=== PATIENT | female | born 1930 | race Hispanic/Latino ===

== ENCOUNTER 2016-11-25 14:22 | Observation (INO) | payer MEDICARE ==
--- NOTE | 2016-11-25 15:03 | ED PDOC ---
HPI: General Adult Time Seen by Provider: 11/25/16 14:48 Chief Complaint (Nursing): Abnormal Labs Chief Complaint (Provider): Abnormal Labs History Per: Patient History/Exam Limitations: no limitations Onset/Duration Of Symptoms: Worse Since Current Symptoms Are (Timing): Still Present Severity: None Additional Complaint(s): Patient is a 86 year old female referred to ED by PMD for hemoglobin 8.2 which is significantly differently from hemoglobin 1 year ago. Patient reports that she has had a cough with blood tinged sputum, but denies chest pain, fever, bloody or dark stools. Denies dizziness, weakness or SOB. Past Medical History Reviewed: Historical Data, Nursing Documentation, Vital Signs Vital Signs: Last Vital Signs Temp 97.8 F 11/25/16 14:28 Pulse 96 H 11/25/16 14:28 Resp 17 11/25/16 14:28 BP 134/60 11/25/16 14:28 Pulse Ox 99 11/25/16 17:11 - Medical History PMH: No Chronic Diseases - Surgical History Surgical History: No Surg Hx - Family History Family History: States: No Known Family Hx - Living Arrangements Living Arrangements: With Family - Immunization History Hx Tetanus Toxoid Vaccination: Yes Hx Influenza Vaccination: Yes Hx Pneumococcal Vaccination: Yes - Allergies Allergies/Adverse Reactions: Allergies Allergy/AdvReac Type Severity Reaction Status Date / Time Penicillins Allergy RASH Verified 11/25/16 14:28 Sulfa (Sulfonamide Allergy RASH Verified 11/25/16 14:28 Antibiotics) Review of Systems ROS Statement: Except As Marked, All Systems Reviewed And Found Negative Constitutional: Negative for: Fever, Chills Cardiovascular: Negative for: Chest Pain, Palpitations, Light Headedness Respiratory: Positive for: Cough, Hemoptysis. Negative for: Shortness of Breath Gastrointestinal: Negative for: Nausea, Vomiting, Melena, Hematochezia, Hematemesis Genitourinary Female: Negative for: Hematuria Musculoskeletal: Negative for: Back Pain Skin: Negative for: Bruising Neurological: Negative for: Weakness, Numbness Physical Exam - Reviewed Nursing Documentation Reviewed: Yes Vital Signs Reviewed: Yes - Physical Exam Appears: Positive for: Non-toxic, No Acute Distress Skin: Positive for: Normal Color, Warm. Negative for: Pallor Eye Exam: Positive for: Normal appearance, EOMI, PERRL Neck: Positive for: Normal, Painless ROM Cardiovascular/Chest: Positive for: Regular Rate, Rhythm. Negative for: Murmur Respiratory: Positive for: Normal Breath Sounds. Negative for: Respiratory Distress Gastrointestinal/Abdominal: Positive for: Normal Exam. Negative for: Tenderness , Distended Back: Positive for: Normal Inspection Extremity: Positive for: Normal ROM Neurologic/Psych: Positive for: Alert, Oriented - Laboratory Results Result Diagrams: 11/25/16 15:40 11/25/16 15:40 - ECG O2 Sat by Pulse Oximetry: 99 (RA) Pulse Ox Interpretation: Normal Medical Decision Making Medical Decision Making: Time: 1500 Initial impression: Low hemoglobin Initial plan: -- Type and screen -- CMP -- Urine dip -- CBC Labs reviewed, Hgb level in ED is 8.0. Discussed case with patient's PMD Dr. Hughes, who reports that Hgb level as of 1 year ago was 13.7. Although patient is asymptomatic at present, drop of >5g requires further observation. If grows to >8g, patient may require transfusion. As a result, patient will be hospitalized as an observation patient under the service of the hospitalist. Scribe Attestation: Documented by Diana Palacios and Aneta Rose acting as a scribe for Edwar Velasquez MD MD Scribe Attestation: All medical record entries made by the Scribe were at my direction and personally dictated by me. I have reviewed the chart and agree that the record accurately reflects my personal performance of the history, physical exam, medical decision making, and the department course for this patient. I have also personally directed, reviewed, and agree with the discharge instructions and disposition. Disposition - Clinical Impression Clinical Impression: Anemia - Patient ED Disposition Is Patient to be Admitted: Yes - Disposition Disposition Time: 17:14 Condition: FAIR - Pt Status Changed To: Hospital Disposition Of: Observation - POA Present On Arrival: None
[2016-11-25 15:47] LABS: BASO % 0.7 % (0.0-2.0); EOS # 0.1 K/uL (0.0-0.7); EOS % 1.7 % (0.0-4.0); HEMATOCRIT 25.3 % (34.0-47.0); LYMPH # 1.4 K/uL (1.0-4.3); LYMPH % 19.8 % (20.0-40.0); MEAN CELL VOLUME 82.8 fl (81.0-99.0); MEAN CORPUSCULAR HEMOGLOBIN 26.3 pg (27.0-31.0); MEAN CORPUSCULAR HGB CONC 31.7 g/dL (33.0-37.0); MEAN PLATELET VOLUME 7.9 fl (7.2-11.7); MONO # 0.8 K/uL (0.0-0.8); MONO % 11.5 % (0.0-10.0); NEUT # 4.5 K/uL (1.8-7.0); NEUT % 66.3 % (50.0-75.0); NRBC % 0.1 % (0.0-0.0); RED CELL DISTRIBUTION WIDTH 15.2 % (11.5-14.5); WHITE BLOOD COUNT 6.8 K/uL (4.8-10.8)
[2016-11-25 15:55] LABS: ALB/GLOB RATIO 1.2 (1.0-2.1); BILIRUBIN,TOTAL 0.5 mg/dl (0.2-1.3); CALCIUM 9.5 mg/dL (8.4-10.2); POTASSIUM 4.4 MMOL/L (3.6-5.0); TOTAL PROTEIN 7.3 G/DL (6.3-8.2)
--- NOTE | 2016-11-25 15:56 | RAD ---
HISTORY: Cough COMPARISON: 02/10/2014 FINDINGS: LUNGS: The lungs are hyperinflated and there is peribronchial thickening with chronic changes in both lungs. There is no focal consolidation. PLEURA: No significant pleural effusion identified, no pneumothorax apparent. CARDIOVASCULAR: The heart is normal in size. Atherosclerotic aortic arch calcifications are present. OSSEOUS STRUCTURES: Within normal limits for the patient's age. VISUALIZED UPPER ABDOMEN: Normal. OTHER FINDINGS: None. IMPRESSION: No active pulmonary disease. COPD.
[2016-11-25 17:59] VITALS: BP 144/93; PULSE 90; RESP 20; TEMP 98; O2SAT 98
--- NOTE | 2016-11-26 15:08 | CARD ---
APPROVED REPORT EKG Measurement Heart [id number] <Conclusion> Normal sinus rhythm Incomplete right bundle branch block Left anterior fascicular block Septal infarct, age undetermined Abnormal ECG
== END 2016-11-25 18:04 | disposition left against medical advice (07) ==
LOC: H.ER 14:22 → MERGE 17:04 → H.ERHOLD 17:04
PROVIDERS: ADMIT Student in an Organized Health Care Education/Training Program; ATTEND Student in an Organized Health Care Education/Training Program
DX: D64.9 Anemia, unspecified (principal); Z88.0 Allergy status to penicillin; Z88.2 Allergy status to sulfonamides
CPT/HCPCS: 71010; 80053; 85025; 86850; 86900; 93005; 99284; G0378

== ENCOUNTER 2017-01-14 09:52 | Inpatient (IN) | payer MEDICARE ==
--- NOTE | 2017-01-14 10:42 | ED PDOC ---
Syncope/Near Syncope/Dizzyness Time Seen by Provider: 01/14/17 10:05 Chief Complaint (Nursing): Syncope Chief Complaint (Provider): Syncope History Per: Patient History/Exam Limitations: no limitations Onset/Duration Of Symptoms: Days (5) Activity At Onset Of Symptoms: Had Just Stood up Fall Associated With With Symptoms: Yes Severity: Moderate Additional History Per: Patient Additional Complaint(s): The pt us a 86yo female, presents to the ED for evaluation s/p faling 5 days ago. Per pt, she stood up 5 days ago and fell and has not been able to get up since then. She reports she passed out for a small period of time, but was unable to call for help or reach the phone. She reports she has not drank or eaten since the fall. States she was finally able to reach the phone today and called for help, presenting to the ED. She currently denies any other medical complaints. Past Medical History Reviewed: Historical Data, Nursing Documentation, Vital Signs Vital Signs: Last Vital Signs Temp 98.4 F 01/14/17 10:24 Pulse 97 H 01/14/17 10:24 Resp 18 01/14/17 10:24 BP 118/55 L 01/14/17 10:24 Pulse Ox 94 L 01/14/17 10:24 - Medical History PMH: No Chronic Diseases - Surgical History Surgical History: No Surg Hx - Family History Family History: States: Unknown Family Hx - Immunization History Hx Tetanus Toxoid Vaccination: Yes Hx Influenza Vaccination: Yes Hx Pneumococcal Vaccination: Yes - Home Medications Home Medications: Ambulatory Orders Medication Instructions Recorded DULoxetine [Cymbalta] 50 mg PO DAILY 01/14/17 Omeprazole [Omeprazole] 40 mg PO DAILY 01/14/17 - Allergies Allergies/Adverse Reactions: Allergies Allergy/AdvReac Type Severity Reaction Status Date / Time Penicillins Allergy RASH Verified 11/25/16 14:28 Sulfa (Sulfonamide Allergy RASH Verified 11/25/16 14:28 Antibiotics) Review of Systems ROS Statement: Except As Marked, All Systems Reviewed And Found Negative Neurological: Positive for: Other (Fall, syncope) Physical Exam - Reviewed Nursing Documentation Reviewed: Yes Vital Signs Reviewed: Yes - Physical Exam Appears: Positive for: Well, Non-toxic, No Acute Distress Head Exam: Positive for: ATRAUMATIC, NORMAL INSPECTION, NORMOCEPHALIC Skin: Positive for: Normal Color (wet mucus membranes), Warm Eye Exam: Positive for: Normal appearance Neck: Positive for: Normal (no C-spine tenderness), Supple Cardiovascular/Chest: Positive for: Regular Rate, Rhythm Respiratory: Positive for: Normal Breath Sounds. Negative for: Respiratory Distress Gastrointestinal/Abdominal: Positive for: Normal Exam, Soft. Negative for: Tenderness Back: Positive for: Normal Inspection Extremity: Positive for: Normal ROM, Tenderness (no tenderness with pelvic rocking. ecchymosis to left lateral thigh with tenderness.), Other (b/l feet with pale toes, some with erythema no edema noted. no open lesions.). Negative for: Deformity Neurologic/Psych: Positive for: Alert, Oriented (x 3) - Laboratory Results Result Diagrams: 01/14/17 10:20 01/14/17 10:20 - ECG O2 Sat by Pulse Oximetry: 94 (RA) - Radiology X-Ray: Read By Radiologist (Hyperinflation; rule out underlying emphysema or COPD for. Questionable bilateral lateral rib fracture deformities.) - Other Rad XR L femur X-Ray: Read By Radiologist (No definitive evidence of acute displaced fracture nor dislocation. The left femoral head is appropriately located within the left acetabulum. Degenerative changes left hip joint. Old fracture deformity of the left superior and inferior pubic ramus which also involve the left aspect of the symphysis pubis is well. If symptoms persist or occult fracture suspected clinically consider followup studies. ) XR L hip/pelvis X-Ray: Read By Radiologist (No evidence of acute displaced fracture nor dislocation. Both femoral heads are appropriately located within the respective acetabula. Degenerative changes both hip joints. In addition, there is an old healed fracture deformity of the left superior and inferior pubic ramus which also involve the left aspect of the symphysis pubis is well. If symptoms persist or occult fracture suspected clinically consider followup studies.) - CT Scan/US Arterial/venous Dopplers Other Rad Interpretation: Pending. CT chest Other Rad Studies (CT/US): Radiology Report Reviewed (Ill-defined right upper lobe - suprahilar mass density which exhibits spiculated borders and abuts the right aspect of the mediastinum as well as along its posterior inferior border the bronchus intermedius which is compressed. Upper lobe this lesion may represent a primary tumor. There also appears to be early postobstructive changes right upper lobe. Consider followup of bronchoscopy followup. There is also a small parenchymal cyst for small of bleb associated with adjacent nodular opacities located in the superior aspect right upper which bordering the fissure. These aforementioned changes could represent postinflammatory sequela possibility of scar carcinoma not excluded.) CT head Other Rad Studies (CT/US): Radiology Report Reviewed (No evidence of acute intracranial hemorrhage. Moderate -significant chronic white matter ischemic changes with scattered chronic bilateral basal nuclei lacunar type infarcts.) Medical Decision Making Medical Decision Making: Time: 1038 Impression: Syncope r/o Rhabdomylosis, lower extremity arterial occlusion Plan: * CT Head * CXR * XR left femur * XR Hip w/ 2 views * Bloodwork * Duplex lower extremities * reassess Scribe Attestation: Documented by Radha Almaraz acting as a scribe for Lynette Cartagena MD. Provider Attestation: All medical record entries made by the Scribe were at my direction and personally dictated by me. I have reviewed the chart and agree that the record accurately reflects my personal performance of the history, physical exam, medical decision making, and the department course for this patient. I have also personally directed, reviewed, and agree with the discharge instructions and disposition. Disposition - Clinical Impression Clinical Impression: Syncope, Pulmonary mass, Fall - Patient ED Disposition Is Patient to be Admitted: Yes - Disposition Disposition Time: 15:30 Condition: GUARDED - Pt Status Changed To: Hospital Disposition Of: Inpatient - Admit Certification Admit to Inpatient:: After my assessment, the patient will require hospitalization for at least two midnights. This is because of the severity of symptoms shown, intensity of services needed, and/or the medical risk in this patient being treated as an outpatient. - POA Present On Arrival: Falls Or Trauma
[2017-01-14 10:52] LABS: BASO # 0.1 K/uL (0.0-0.2); BASO % 0.7 % (0.0-2.0); EOS % 0.1 % (0.0-4.0); HEMATOCRIT 27.2 % (34.0-47.0); LYMPH # 0.9 K/uL (1.0-4.3); LYMPH % 7.3 % (20.0-40.0); MEAN CELL VOLUME 74.4 fl (81.0-99.0); MEAN CORPUSCULAR HEMOGLOBIN 22.8 pg (27.0-31.0); MEAN CORPUSCULAR HGB CONC 30.7 g/dL (33.0-37.0); MEAN PLATELET VOLUME 8.2 fl (7.2-11.7); MONO # 0.9 K/uL (0.0-0.8); MONO % 7.3 % (0.0-10.0); NEUT # 10.1 K/uL (1.8-7.0); NEUT % 84.6 % (50.0-75.0); PLATELET COUNT 410 K/uL (130-400)
[2017-01-14 11:17] LABS: ALB/GLOB RATIO 1.3 (1.0-2.1); BILIRUBIN,TOTAL 1.3 mg/dl (0.2-1.3); CALCIUM 9.6 mg/dL (8.4-10.2); POTASSIUM 5.1 MMOL/L (3.6-5.0); TOTAL PROTEIN 8.3 G/DL (6.3-8.2)
[2017-01-14 11:35] LABS: TROPONIN I 0.097 ng/mL (0.00-0.120)
[2017-01-14] MEDS ORDERED: Sodium Chloride 0.9% 1,000 ML IV STA (11:47)
--- NOTE | 2017-01-14 11:52 | RAD ---
HISTORY: Syncope COMPARISON: Comparison chest 09/08/2010 FINDINGS: LUNGS: Hyperinflation ; rule out underlying emphysema and or COPD. No acute infiltrates. PLEURA: No significant pleural effusion identified, no pneumothorax apparent. CARDIOVASCULAR: Normal. OSSEOUS STRUCTURES: Questionable old bilateral lateral rib fracture deformities. 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 DJD both shoulder girdles. VISUALIZED UPPER ABDOMEN: Normal. OTHER FINDINGS: None. IMPRESSION: Hyperinflation; rule out underlying emphysema or COPD for. Questionable bilateral lateral rib fracture deformities.
--- NOTE | 2017-01-14 12:04 | RAD ---
PROCEDURE: Left femur dated 01/14/2017 HISTORY: Fall COMPARISON: Comparison made with concurrent radiographs of the pelvis left hip and prior radiographs of the lumbar spine 05/03/2008 TECHNIQUE: AP and lateral views of the left hip performed. FINDINGS: Current study reveals no definitive evidence of acute displaced fracture nor dislocation. The left femoral head is appropriately located within the left acetabulum. Degenerative changes left hip joint. Old fracture deformity of the left superior and inferior pubic ramus which also involve the left aspect of the symphysis pubis is well. If symptoms persist or occult fracture suspected clinically consider followup studies. IMPRESSION: No definitive evidence of acute displaced fracture nor dislocation. The left femoral head is appropriately located within the left acetabulum. Degenerative changes left hip joint. Old fracture deformity of the left superior and inferior pubic ramus which also involve the left aspect of the symphysis pubis is well. If symptoms persist or occult fracture suspected clinically consider followup studies. Verbal
--- NOTE | 2017-01-14 12:06 | RAD ---
PROCEDURE: Pelvis left hip 01/14/2017. HISTORY: Fall COMPARISON: None. FINDINGS: BONES: No evidence of acute displaced fracture nor dislocation. Both femoral heads are appropriately located within the respective acetabula. Degenerative changes both hip joints. In addition, there is an old healed fracture deformity of the left superior and inferior pubic ramus which also involve the left aspect of the symphysis pubis is well. If symptoms persist or occult fracture suspected clinically consider followup studies. Degenerative changes lumbosacral spine JOINTS: As above SOFT TISSUES: Calcific densities overlying the iliac bones could represent calcified injection granulomata both buttocks OTHER FINDINGS: Vascular calcifications of the lower abdominal aorta IMPRESSION: No evidence of acute displaced fracture nor dislocation. Both femoral heads are appropriately located within the respective acetabula. Degenerative changes both hip joints. In addition, there is an old healed fracture deformity of the left superior and inferior pubic ramus which also involve the left aspect of the symphysis pubis is well. If symptoms persist or occult fracture suspected clinically consider followup studies.
--- NOTE | 2017-01-14 12:25 | CT ---
PROCEDURE: CT HEAD WITHOUT CONTRAST. HISTORY: Syncope COMPARISON: None available. TECHNIQUE: Axial computed tomography images were obtained through the head/brain without intravenous contrast. Radiation dose: Total exam DLP = 1231.85 mGy-cm. This CT exam was performed using one or more of the following dose reduction techniques: Automated exposure control, adjustment of the mA and/or kV according to patient size, and/or use of iterative reconstruction technique. FINDINGS: HEMORRHAGE: No intracranial hemorrhage. BRAIN: Moderate -significant diffuse/ confluent chronic periventricular white matter ischemic changes seen extending peripherally into the deep and subcortical white matter both cerebral hemispheres. There is also some extension of these changes into the white matter tracts of both basal nuclei. Chronic appearing bilateral basal nuclei lacunar type infarcts also felt be present. Mild vascular calcifications are present VENTRICLES: Moderate -significant generalized volume loss CALVARIUM: No acute calvarial fractures. PARANASAL SINUSES: Visualized paranasal sinuses well-developed and currently well-aerated. MASTOID AIR CELLS: Well-developed and well-aerated OTHER FINDINGS: Status post bilateral cataract surgery mallory IMPRESSION: No evidence of acute intracranial hemorrhage. Moderate -significant chronic white matter ischemic changes with scattered chronic bilateral basal nuclei lacunar type infarcts.
[2017-01-14 12:29] LABS: LARGE PLATELETS PRESENT; NEUTROPHIL 85 % (42-75); TOTAL CELLS COUNTED 100
[2017-01-14 12:34] LABS: PARTIAL THROMBOPLASTIN TIME 25.9 SECONDS (23.3-32.5)
[2017-01-14 16:42] LABS: IRON 24 ug/dL (37-170)
--- NOTE | 2017-01-14 16:51 | CT ---
PROCEDURE: CT scan chest dated 01/14/2017. HISTORY: Hemoptysis COMPARISON: Correlation made with chest radiograph obtained earlier same day TECHNIQUE: Contiguous helical/ transaxial images were obtained through the chest without intravenous contrast enhancement. Sagittal and coronal reconstructions were performed. Radiation dose (DLP): 207.77 mGy-cm. This CT exam was performed using one or more of the following dose reduction techniques: Automated exposure control, adjustment of the mA and/or kV according to patient size, and/or use of iterative reconstruction technique. FINDINGS: LUNGS: The current study reveals an ill-defined large masslike density in the right upper lobe abutting the suprahilar region and upper mediastinum. This lesion measures approximately 2.36 x 2.36 cm exhibits X spiculated borders. Primary carcinoma is suspected. Follow-up of bronchoscopy may be prudent for further evaluation. The posterior inferior margin of the lesion abuts the right-sided bronchus intermedius which appears to be compressed as well. Areas of atelectasis in the right upper anterior lung field on may be due to early postobstructive non changes. . Curvilinear and nodular opacities right upper lobe extending to the right apical and upper lobe pleural surfaces. . There is a elliptical shaped approximately 14 mm x 10 mm cystic focus superior aspect right right lower lobe associated with at least 2 nodular densities ; 1 measuring approximately at 7.8 mm and another more elliptical elliptical shaped and posteriorly located lesion measuring approximately 11.2 x4 0.8 mm. Rule out underlying scar carcinoma. There are areas of linear atelectatic/scarring changes seen in the middle lobe and lingular regions. MEDIASTINUM: Heart size within range of normal. Coronary artery calcifications. There are also calcifications of the mitral valve. The ascending thoracic aorta measures approximately 3.57 cm in greatest dimension. Descending thoracic aorta measures approximately 2.8 cm. Pulmonary trunk measures approximately 2.4 cm. 1.66 cm precarinal lymph node though this exhibits a fatty center of. Few additional smaller nonspecific mediastinal lymph nodes are present. There is food debris and apparent fluid level within esophagus consistent which could be secondary to dysmotility however stenotic lesion on not excluded. Clinical correlation recommended. PLEURA: No effusion or pneumothorax. . BONES: Multilevel degenerative spondylosis of the thoracic spine. Chronic appearing anterior wedge deformity of the T7 and to a lesser degree T6 and T5 segments. Chronic appearing superior endplate compression fracture of the L2 segment. Several old right lateral rib fracture deformities UPPER ABDOMEN: Marked wall thickening of the stomach of likely due to underdistention however the possibility of gastritis or other intrinsic/invasive wall lesion not excluded. Cholelithiasis OTHER FINDINGS: At least 2 coarse calcifications in the right breast. IMPRESSION: Ill-defined right upper lobe - suprahilar mass density which exhibits spiculated borders and abuts the right aspect of the mediastinum as well as along its posterior inferior border the bronchus intermedius which is compressed. Upper lobe this lesion may represent a primary tumor. There also appears to be early postobstructive changes right upper lobe. Consider followup of bronchoscopy followup. There is also a small parenchymal cyst for small of bleb associated with adjacent nodular opacities located in the superior aspect right upper which bordering the fissure. These aforementioned changes could represent postinflammatory sequela possibility of scar carcinoma not excluded. . . There is mild dilatation of the esophagus that contains food debris liquid and at exhibits an air-fluid level. Rule out dysmotility. Rule out esophageal stricture. Followup studies recommended. Thick-walled stomach likely due to underdistention however gastritis or other intrinsic/invasive wall lesion not excluded. Cholelithiasis. Chronic compression fracture superior L2 endplate. Mild chronic anterior wedge deformity T7 and to a lesser degree T6 and T5 segments. Several bold right lateral rib fracture deformities. .
--- NOTE | 2017-01-14 18:06 | CP.PCM.HP ---
History of Present Illness - History of Present Illness History of Present Illness: Chief Complaint: fell, passed out HPI: This is an 86 year old female with PMH osteopenia, anemia, presented after an acute fall 5 days ago, and was not able to get up since then. She admits to becoming confused and suddenly losing consciousness momentarily after standing up, was unable to call for help, or eat or drink since falling. Patient admits to some right sided weakness in arm and leg, no facial droop. Not associated with loss of bowel or bladder. Unclear if patient hit her head. Today patient was able to reach the phone and called for help. Currently she is alert, oriented. In ER, patient imaging studies were negative for brain bleed or fractures. Patient CK elevated 1100+, will admit for rhabdomyolysis. No acute kidney injury. Patient also complained of heavily streaked blood in sputum for about [address] chest was ordered which showed a suprahilar spiculated mass. Pulmonology consulted. CT also showed possible esophageal dysmotility. Will follow up with GI as outpatient. Vitals are stable, no acute distress. ROS: Per HPI, all other systems reviewed negative by me PMD: Deirdre Hughes MD. PMH: osteopenia, anemia PSH: FH: former smoker, denies ETOH, IVDU SH: denies tobacco, etoh, ivdu ALLERGIES: PCN, Sulfas MEDICATIONS: reviewed and as below Vitals: 98.4 97 18 118/55 94% on RA GENERAL APPEARANCE: Well developed, well nourished, alert and cooperative, and appears to be in no acute distress. HEENT: normocephalic, atraumatic PERRL, EOMI. Vision is grossly intact. External auditory canals clear, hearing grossly intact. No nasal discharge. Oral cavity and pharynx normal. No inflammation, swelling, exudate, or lesions. NECK: Neck supple, non-tender without lymphadenopathy, masses or thyromegaly. CARDIAC: Normal S1 and S2. No S3, S4 or murmurs. Rhythm is regular. LUNGS: Clear to auscultation and percussion without rales, rhonchi, wheezing or diminished breath sounds. ABDOMEN: Positive bowel sounds. Soft, nondistended, nontender. No guarding or rebound. No masses. BACK: Examination of the spine reveals no spinal deformity, symmetry of spinal muscles, EXTREMITIES: No significant deformity or joint abnormality. No edema. NEUROLOGICAL: Strength 4/5 R Upper and lower extremities. sensation symmetric and intact throughout. Reflexes 2+ throughout. SKIN: Skin normal color, texture and turgor with no lesions or eruptions. PSYCHIATRIC: The patient was oriented to person, place, and time. Normal affect. LABS: IMAGING STUDIES CXR: hyperinflated, to correlate with COPD Head CT: no bleed appreciated Femur XR, Hip/Pelvis XR: negative for fracture Dopplers: EKG NSR, incomplete RBBB. No acute ischemia or infarct appreciated. ACTIVE MEDICATIONS ASSESSMENT AND PLAN This is an 86 year old female with PMH osteopenia, anemia, presented after an acute fall 5 days ago, and was not able to get up since then. She admits to becoming confused and suddenly losing consciousness momentarily after standing up, was unable to call for help, or eat or drink since falling. Patient admits to some right sided weakness in arm and leg, no facial droop. Not associated with loss of bowel or bladder. Unclear if patient hit her head. Today patient was able to reach the phone and called for help. Currently she is alert, oriented. In ER, patient imaging studies were negative for brain bleed or fractures. Patient CK elevated 1100+, will admit for rhabdomyolysis. No acute kidney injury. Patient also complained of heavily streaked blood in sputum for about [address] chest was ordered which showed a suprahilar spiculated mass. Pulmonology consulted. CT also showed possible esophageal dysmotility. Will follow up with GI as outpatient. Vitals are stable, no acute distress. Syncope and Fall 2/2 CVA vs. TIA Mild Right sided weakness upper and lower extremity, no facial droop CT head negative Hip, Pelvis, Femur XR neg for fractures Orthostatic BPs TTE ordered Troponins to be trended 8p and 4a, no acute ischemia or infarct on EKG, no chest pain or dyspnea MRI brain ordered Carotid Doppler ordered Asa, Plavix, Statin started Rhabdomyolysis No renal impairment CK 1100+ today, repeat tomorrow NS@ 150cc until Echo completed Check BMP Suprahilar Mass, Blood Streaked Sputum Spoke with patient, she would like to pursue diagnostic studies 4 month hx of blood tinged sputum CT chest: Ill-defined right upper lobe- suprahilar spicular mass, abuts the R aspect of the mediastinum as well as along its posterior inferior border of the bronchus intermedius which is compressed. Possible early postobstructive changes R upper lobe. Consider follow up bronch. Pulmonology Consult Dr. Sidhu appreciated and followed Leukocytosis Likely due to stress reaction from rhabdomyolysis Anemia, Microcytic Will work up with Fe, TIBC, Ferritin, Retic count Monitor H/H, expect small drop due to hydration No signs of acute bleed Patient H/H was 13.1/39.24 November 2015, As of November 23, 2016 8.2/26.4 Today 8.4/27.2 MCV 74.4, microcytic Esophageal Dysmotility? CT findings,possible follow up as outpatient with GI, however will first await malignancy workup Azotemia BUN 55 2/2 dehydration Hydrating with NS per rhabdomyolysis treatment DVT prophylaxis LOVENOX SC daily. Present on Admission - Present on Admission Any Indicators Present on Admission: No Past Patient History - Past Social History Smoking Status: Former Smoker - NEUROLOGICAL HX Cerebrovascular Accident: Yes - PSYCHIATRIC Hx Substance Use: No - SURGICAL HISTORY Hx Surgeries: No - ANESTHESIA Hx Anesthesia: No Meds Allergies/Adverse Reactions: Allergies Allergy/AdvReac Type Severity Reaction Status Date / Time Penicillins Allergy RASH Verified 11/25/16 14:28 Sulfa (Sulfonamide Allergy RASH Verified 11/25/16 14:28 Antibiotics) Results - Vital Signs Recent Vital Signs: Last Vital Signs Temp 97.6 F 01/14/17 13:22 Pulse 98 H 01/14/17 13:22 Resp 19 01/14/17 13:22 BP 112/68 01/14/17 13:22 Pulse Ox 96 01/14/17 13:22 - Labs Result Diagrams: 01/14/17 10:20 01/14/17 10:20 Labs: Laboratory Results - last 24 hr 01/14/17 16:00 Iron 24 L TIBC 347 % Saturation 7 L
[2017-01-14] MEDS ORDERED: Sodium Chloride 3% for Inhalation 4 ML VIAL.NEB IH PRN (18:16)
--- NOTE | 2017-01-14 20:52 | US ---
EXAM: US Duplex Bilateral Lower Extremity Veins CLINICAL HISTORY: 86 years old, female; Injury or trauma; Fall; Initial encounter; Unconscious; Additional info: Ble pain TECHNIQUE: Real-time ultrasound scan of the veins of the bilateral lower extremities with color Doppler flow, spectral waveform analysis and compression. COMPARISON: No relevant prior studies available. FINDINGS: Right deep veins: Normal color and spectral Doppler flow. Normal compressibility. No deep vein thrombosis from common femoral to popliteal vein. Right superficial veins: Unremarkable. Left deep veins: Normal color and spectral Doppler flow. Normal compressibility. No deep vein thrombosis from common femoral to popliteal vein. Left superficial veins: Unremarkable. Soft tissues: No popliteal cyst. IMPRESSION: 1. No evidence of DVT within the lower extremities. 2. Incidental/non-acute findings are described above.
--- NOTE | 2017-01-14 20:56 | US ---
EXAM: US Duplex Bilateral Lower Extremity Arteries CLINICAL HISTORY: 86 years old, female; Injury or trauma; Fall; Initial encounter; Unconscious; Additional info: Ble pain TECHNIQUE: Real-time ultrasound scan of the arteries of the bilateral lower extremities with 2-D mendoza scale, color Doppler flow and spectral waveform analysis. COMPARISON: No relevant prior studies available. FINDINGS: Right common femoral artery: No occlusion or significant stenosis. Normal waveform. Right superficial femoral artery: No occlusion or significant stenosis. Normal waveform. Right popliteal artery: No occlusion or significant stenosis. Normal waveform. Right calf/foot arteries: No occlusion or significant stenosis. Normal waveform. Left common femoral artery: No occlusion or significant stenosis. Normal waveform. Left superficial femoral artery: No occlusion or significant stenosis. Normal waveform. Left popliteal artery: No occlusion or significant stenosis. Normal waveform. Left calf/foot arteries: No occlusion or significant stenosis. Normal waveform. Soft tissues: Unremarkable. IMPRESSION: No occlusion or significant stenosis.
--- NOTE | 2017-01-14 20:59 | US ---
EXAM: US Duplex Bilateral Extracranial Arteries CLINICAL HISTORY: 86 years old, female; Injury or trauma; Fall; Initial encounter; Unconscious; Injury date: 5 days ago; Additional info: TIA TECHNIQUE: Real-time ultrasound scan of the bilateral carotid and vertebral arteries, 2-D mendoza scale, with color Doppler flow and spectral waveform analysis. COMPARISON: No relevant prior studies available. FINDINGS: DAYLIN proximal PSV - 54 cm/sec DAYLIN proximal EDV - 15 cm/sec DAYLIN mid PSV - 104 cm/sec DAYLIN mid EDV - 15 cm/sec DAYLIN distal PSV - 86 cm/sec DAYLIN distal EDV - 13 cm/sec DAYLIN/CCA PSV ratio - 1.1 RECA PSV - 68 cm/sec RV PSV - 59 cm/sec; antegrade Plaque: Calcified plaque within CCA, bulb, proximal ICA. LICA proximal PSV - 68 cm/sec LICA proximal EDV - 4 cm/sec LICA mid PSV - 69 cm/sec LICA mid EDV - 16 cm/sec LICA distal PSV - 56 cm/sec LICA distal EDV - 13 cm/sec LICA/CCA PSV ratio - 0.6 LECA PSV - 65 cm/sec LV PSV - 37 cm/sec, antegrade Plaque: Calcified plaque within CCA, bulb, proximal ICA. IMPRESSION: Right-<50% ICA stenosis Left-<50% ICA stenosis
[2017-01-14 21:23] LABS: RETIC% 2.3 % (0.5-1.5)
[2017-01-15 08:13] LABS: BASO % 0.5 % (0.0-2.0); EOS # 0.1 K/uL (0.0-0.7); EOS % 1.7 % (0.0-4.0); HEMATOCRIT 24.2 % (34.0-47.0); LYMPH # 1.1 K/uL (1.0-4.3); LYMPH % 13.7 % (20.0-40.0); MEAN CELL VOLUME 74.4 fl (81.0-99.0); MEAN CORPUSCULAR HEMOGLOBIN 23.3 pg (27.0-31.0); MEAN CORPUSCULAR HGB CONC 31.3 g/dL (33.0-37.0); MEAN PLATELET VOLUME 7.8 fl (7.2-11.7); MONO % 12.3 % (0.0-10.0); NEUT # 5.8 K/uL (1.8-7.0); NEUT % 71.8 % (50.0-75.0); RED CELL DISTRIBUTION WIDTH 15.3 % (11.5-14.5); WHITE BLOOD COUNT 8.1 K/uL (4.8-10.8)
[2017-01-15 09:08] LABS: ALB/GLOB RATIO 1.2 (1.0-2.1); ALKALINE PHOSPHATASE 73 U/L (38-126); ALT/SGPT 61 U/L (9-52); AST/SGOT 94 U/L (14-36); BILIRUBIN,TOTAL 0.7 mg/dl (0.2-1.3); BLOOD UREA NITROGEN 41 mg/dl (7-17); CALCIUM 9.1 mg/dL (8.4-10.2); CARBON DIOXIDE 24 mmol/L (22-30); CHLORIDE 109 mmol/L (98-107); GFR AFRICAN-AMERICAN > 60; GLUCOSE,RANDOM 103 mg/dL (65-105); POTASSIUM 4.1 MMOL/L (3.6-5.0); SODIUM 143 mmol/l (132-148); TOTAL PROTEIN 6.7 G/DL (6.3-8.2)
[2017-01-15] MEDS: Enoxaparin 40 mg Syringe SC SCH (09:34)
--- NOTE | 2017-01-15 10:23 | CP.PCM.PN ---
Subjective - Date & Time of Evaluation Date of Evaluation: 01/15/17 Time of Evaluation: 10:00 - Subjective Subjective: Still with Hemoptysis and cough no fever denies CP no SOB no abd pain complain of left hip pain and wrist pain no headache Objective - Vital Signs/Intake and Output Vital Signs (last 24 hours): Temp Pulse Resp BP Pulse Ox 98.1 F 83 18 144/68 96 01/15/17 08:11 01/15/17 08:11 01/15/17 08:11 01/15/17 08:11 01/15/17 08:11 - Medications Medications: Current Medications Aspirin (Aspirin Chewable) 81 mg PO DAILY [facility] Last Admin: 01/15/17 09:33 Dose: 81 mg Atorvastatin Calcium (Lipitor) 20 mg PO DAILY [facility] Last Admin: 01/15/17 09:34 Dose: 20 mg Clopidogrel Bisulfate (Plavix) 75 mg PO DAILY [facility] Last Admin: 01/15/17 09:34 Dose: 75 mg Duloxetine HCl (Cymbalta) 20 mg PO DAILY [facility] Last Admin: 01/15/17 09:33 Dose: 20 mg Duloxetine HCl (Cymbalta) 30 mg PO DAILY [facility] Last Admin: 01/15/17 09:34 Dose: 30 mg Enoxaparin Sodium (Lovenox) 40 mg SC DAILY [facility] PRN Reason: Protocol Last Admin: 01/15/17 09:34 Dose: 40 mg Iron Sucrose 100 mg/ Sodium (Chloride) 105 mls @ 105 mls/hr IVPB ONCE ONE Stop: 01/16/17 10:22 Ondansetron HCl (Zofran Inj) 4 mg IVP Q4 PRN PRN Reason: Nausea/Vomiting - Labs Labs: 01/15/17 06:45 01/15/17 06:45 PT 11.4 SECONDS (9.6-11.2) H 01/14/17 10:20 INR 1.10 (0.92-1.08) H 01/14/17 10:20 APTT 25.9 SECONDS (23.3-32.5) 01/14/17 10:20 - Constitutional Appears: No Acute Distress, Chronically Ill - Head Exam Head Exam: NORMAL INSPECTION, NORMOCEPHALIC - Eye Exam Eye Exam: EOMI, Normal appearance Pupil Exam: NORMAL ACCOMODATION - ENT Exam ENT Exam: Mucous Membranes Moist, Normal External Ear Exam - Neck Exam Neck Exam: Full ROM. absent: Meningismus - Respiratory Exam Respiratory Exam: Decreased Breath Sounds, Rales (min rales bases), NORMAL BREATHING PATTERN. absent: Respiratory Distress - Cardiovascular Exam Cardiovascular Exam: REGULAR RHYTHM, +S1, +S2 - GI/Abdominal Exam GI & Abdominal Exam: Soft, Normal Bowel Sounds. absent: Tenderness - Extremities Exam Extremities Exam: Normal Capillary Refill. absent: Calf Tenderness, Pedal Edema Additional comments: left hip pain on ROM left wrist tenderness on palpation Assessment and Plan (1) Pulmonary mass Status: Acute (2) Syncope Status: Acute (3) Fall Status: Acute (4) Anemia Status: Acute (5) Traumatic rhabdomyolysis Status: Acute (6) Dehydration Status: Acute (7) Depression Status: Chronic (8) DVT prophylaxis Status: Acute - Assessment and Plan (Free Text) Assessment: 86 y/o lady with hx of Depression, lives alone, was brought in after she was found down at home. Pt states that she felt faint and fell however was unable to get up after falling so was down on the floor for a few days until she could crawl to the phone. In the ED , labs showed dehydration, elevated CK level. Pt also gives hx of hemoptysis for the past [address] of chest showed Pulm mass. (1) Pulmonary mass Status: Acute CT of Chest :Ill-defined right upper lobe - suprahilar mass density which exhibits spiculated borders and abuts the right aspect of the mediastinum as well as along its posterior inferior border the bronchus intermedius which is compressed. Upper lobe this lesion may represent a primary tumor. There also appears to be early postobstructive changes right upper lobe. - Pulm consulted : Dr Sidhu -Discussed CT result with pt - Sputum Cytology (2) Syncope prob sec to hypovolemia, CVA ruled out Status: Acute Pt has been very weak for the past few days , found to have some anemia Hgb=8.[address] of head : neg MRI of brain : no acute bleed nor infarct Carotid sono; no significant stenosis Doppler US : no DVT Pt denies any motor weakness nor sensory deficit - her weakness was generalized d/c ASA and Plavix due to the Hemoptysis (3) Fall Status: Acute Pt feel on her left side complains of left hip pain and left wrist pain Hip xray ; no fracture CT of head ; no frcature nor bleed Wrist xray (4) Anemia chronic prob sec to Hemoptysis and Chronic disease Status: Acute Transfuse 1 unit PRBC (5) Traumatic rhabdomyolysis Status: Acute IVF hydration Pt came with elevated CK level after falling down CK trending down (6) Dehydration Status: Acute IVF hydration (7) Depression Status: Chronic cont Cymbalata (8) DVT prophylaxis Status: Acute Lovenox
--- NOTE | 2017-01-15 12:36 | MRI ---
PROCEDURE: MRI BRAIN WITHOUT CONTRAST HISTORY: evaluate for stroke COMPARISON: Comparison made with CT scan of the brain dated 01/14/2017. Study is limited by motion artifact. TECHNIQUE: Multiplanar, multisequence MR images of the brain were obtained without intravenous contrast enhancement. FINDINGS: HEMORRHAGE: No acute parenchymal, subarachnoid nor extra-axial hemorrhage. No hemosiderin deposition identified on gradient echo weighted sequence. DWI: No evidence of an acute or early subacute infarction seen on diffusion imaging. . BRAIN PARENCHYMA: Re- demonstrated to better advantage are or significant diffuse/ confluent chronic periventricular white matter ischemic changes that extend peripherally into the deep and subcortical white matter both cerebral hemispheres. Multiple more discrete deep and subcortical white matter as well as bilateral basal nuclei chronic lacunar-type infarcts also present. Moderate to significant central volume loss. . VENTRICLES: Ventricles are not enlarged on ex vacuo basis however no evidence of obstructive type hydrocephalus CRANIUM: No calvarial abnormalities ORBITS: Status post bilateral cataract surgery. PARANASAL SINUSES/MASTOIDS: Clear VASCULAR SYSTEM: Visualized major vascular flow voids at skull base are patent. OTHER FINDINGS: Empty sella. IMPRESSION: Limited motion degraded study. No acute intracranial hemorrhage or infarct. Extensive chronic white matter and basal nuclei ischemic changes. Moderate to significant central volume loss.
--- NOTE | 2017-01-15 16:56 | CP.PCM.CON ---
History of Present Illness - History of Present Illness History of Present Illness: 86 year old female with a history of anemia, admitted s/p fall, found to have a right upper lobe lung mass. The patient notes to slight confusion which led to her having a dizzy spell and falling. She was down for several days but was eventually able to call for help. She has had diminished appetite for several weeks and may have lost weight. A CT scan of the chest revealed a right sided suprahilar mass. Past medical history: Anemia Past surgical history: None Family history: Several family members with unknown malignancy Social history: Former 2ppd x 40 years, denies alcohol and illicit drug use. Allergies: Penicillins, Sulfa Review of systems: All remaining review of systems including HEENT, cardiovascular, respiratory, gastrointestinal, genitourinary, musculoskeletal, dermatologic, neurologic, and psychiatric are negative unless mentioned in the HPI. Past Patient History - Past Medical History & Family History Past Medical History?: Yes - Past Social History Smoking Status: Former Smoker - CARDIAC Hx Cardiac Disorders: No - PULMONARY Hx Respiratory Disorders: No - NEUROLOGICAL Hx Neurological Disorder: No - HEENT Hx HEENT Problems: No - RENAL Hx Chronic Kidney Disease: No - ENDOCRINE/METABOLIC Hx Endocrine Disorders: No - HEMATOLOGICAL/ONCOLOGICAL Hx Blood Disorders: Yes Hx Anemia: Yes - INTEGUMENTARY Hx Dermatological Problems: No - MUSCULOSKELETAL/RHEUMATOLOGICAL Hx Musculoskeletal Disorders: Yes Hx Falls: Yes Hx Osteoporosis: Yes Other/Comment: Osteopenia - GASTROINTESTINAL Hx Gastrointestinal Disorders: No - GENITOURINARY/GYNECOLOGICAL Hx Genitourinary Disorders: No - PSYCHIATRIC Hx Psychophysiologic Disorder: No Hx Substance Use: No - SURGICAL HISTORY Hx Surgeries: No - ANESTHESIA Hx Anesthesia: No Meds Allergies/Adverse Reactions: Allergies Allergy/AdvReac Type Severity Reaction Status Date / Time Penicillins Allergy RASH Verified 11/25/16 14:28 Sulfa (Sulfonamide Allergy RASH Verified 11/25/16 14:28 Antibiotics) - Medications Medications: Current Medications Duloxetine HCl (Cymbalta) 20 mg PO DAILY [facility] Last Admin: 01/15/17 09:33 Dose: 20 mg Duloxetine HCl (Cymbalta) 30 mg PO DAILY [facility] Last Admin: 01/15/17 09:34 Dose: 30 mg Enoxaparin Sodium (Lovenox) 40 mg SC DAILY [facility] PRN Reason: Protocol Last Admin: 01/15/17 09:34 Dose: 40 mg Iron Sucrose 100 mg/ Sodium (Chloride) 105 mls @ 105 mls/hr IVPB STAT STA Stop: 01/15/17 17:44 Ondansetron HCl (Zofran Inj) 4 mg IVP Q4 PRN PRN Reason: Nausea/Vomiting Physical Exam - Head Exam Head Exam: ATRAUMATIC - Eye Exam Eye Exam: Normal appearance - ENT Exam ENT Exam: Mucous Membranes Dry - Respiratory Exam Respiratory Exam: NORMAL BREATHING PATTERN - Cardiovascular Exam Cardiovascular Exam: +S1, +S2 - GI/Abdominal Exam GI & Abdominal Exam: Normal Bowel Sounds - Extremities Exam Extremities exam: Positive for: normal inspection - Neurological Exam Neurological exam: Oriented x3 - Psychiatric Exam Psychiatric exam: Normal Affect, Normal Mood - Skin Skin Exam: Warm Results - Vital Signs Recent Vital Signs: Last Vital Signs Temp 98.2 F 01/15/17 16:12 Pulse 82 01/15/17 16:12 Resp 20 01/15/17 16:12 BP 127/64 01/15/17 16:12 Pulse Ox 99 01/15/17 16:12 - Labs Result Diagrams: 01/15/17 06:45 01/15/17 06:45 Labs: Laboratory Results - last 24 hr 01/14/17 01/15/17 01/15/17 21:30 06:45 06:45 WBC 8.1 RBC 3.26 L Hgb 7.6 L Hct 24.2 L MCV 74.4 L MCH 23.3 L MCHC 31.3 L RDW 15.3 H Plt Count 365 MPV 7.8 Neut % (Auto) 71.8 Lymph % (Auto) 13.7 L Pitt % (Auto) 12.3 H Eos % (Auto) 1.7 Baso % (Auto) 0.5 Neut # 5.8 Lymph # 1.1 Pitt # 1.0 H Eos # 0.1 Baso # 0.0 Sodium 143 Potassium 4.1 Chloride 109 H Carbon Dioxide 24 Anion Gap 14 BUN 41 H Creatinine 1.0 Est GFR ( Amer) > 60 Est GFR (Non-Af Amer) 53 Random Glucose 103 Calcium 9.1 Total Bilirubin 0.7 AST 94 H D ALT 61 H Alkaline Phosphatase 73 Total Creatine Kinase 508 H Troponin I 0.0880 0.0740 Total Protein 6.7 Albumin 3.7 Globulin 3.0 Albumin/Globulin Ratio 1.2 Crossmatch BBK History Checked 01/15/17 15:47 WBC RBC Hgb Hct MCV MCH MCHC RDW Plt Count MPV Neut % (Auto) Lymph % (Auto) Pitt % (Auto) Eos % (Auto) Baso % (Auto) Neut # Lymph # Pitt # Eos # Baso # Sodium Potassium Chloride Carbon Dioxide Anion Gap BUN Creatinine Est GFR ( Amer) Est GFR (Non-Af Amer) Random Glucose Calcium Total Bilirubin AST ALT Alkaline Phosphatase Total Creatine Kinase Troponin I Total Protein Albumin Globulin Albumin/Globulin Ratio Crossmatch See Detail BBK History Checked Patient has bt Assessment & Plan (1) Anemia Assessment and Plan: borderline iron stores; agree with Venofer will check FOBT, b12, folate to receive 1U PRBC Status: Acute (2) Pulmonary mass Assessment and Plan: suspicious for malignancy pulmonary evaluation Thank you for this interesting consult. Status: Acute
--- NOTE | 2017-01-15 18:10 | RAD ---
PROCEDURE: Left Wrist Radiographs. HISTORY: fall, trauma COMPARISON: None. FINDINGS: BONES: Questionable nondisplaced or minimally displaced fracture of the distal left radius. . Consider followup CT scan and or MRI. 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 There are also calcific like density seen in the region of the triangular fibrocartilage. Significant triscaphe degenerative osteoarthritis. Multi articular osteoarthritis of the carpal bones as well as carpometacarpal articulations. There also appears to be old healed fracture deformity of the distal 5th metacarpal. Flexion deformity at the level of the 1st MCP joint. JOINTS: As above SOFT TISSUES: Suspect mild soft tissue swelling most pronounced dorsally. Vascular calcifications are felt to be present. OTHER FINDINGS: No radiopaque foreign bodies IMPRESSION: Questionable nondisplaced or minimally displaced fracture distal radius. There also appears to be mild soft tissue swelling most pronounced dorsally. Consider followup CT scan and or MRI. Significant multi articular degenerative osteoarthritis. Probable old healed fracture deformity distal aspect 5th metacarpal.
[2017-01-16 07:02] LABS: BASO % 0.5 % (0.0-2.0); EOS # 0.2 K/uL (0.0-0.7); EOS % 2.8 % (0.0-4.0); HEMATOCRIT 27.4 % (34.0-47.0); LYMPH # 1.3 K/uL (1.0-4.3); LYMPH % 16.7 % (20.0-40.0); MEAN CORPUSCULAR HEMOGLOBIN 24.1 pg (27.0-31.0); MEAN CORPUSCULAR HGB CONC 31.2 g/dL (33.0-37.0); MEAN PLATELET VOLUME 7.7 fl (7.2-11.7); MONO % 12.8 % (0.0-10.0); NEUT # 5.2 K/uL (1.8-7.0); NEUT % 67.2 % (50.0-75.0); RED CELL DISTRIBUTION WIDTH 16.9 % (11.5-14.5); WHITE BLOOD COUNT 7.7 K/uL (4.8-10.8)
[2017-01-16 07:03] LABS: MEAN CELL VOLUME 77.2 fl (81.0-99.0)
[2017-01-16 07:37] LABS: ALB/GLOB RATIO 1.3 (1.0-2.1); ALKALINE PHOSPHATASE 69 U/L (38-126); ALT/SGPT 55 U/L (9-52); AST/SGOT 66 U/L (14-36); BLOOD UREA NITROGEN 33 mg/dl (7-17); CARBON DIOXIDE 26 mmol/L (22-30); CHLORIDE 105 mmol/L (98-107); GFR AFRICAN-AMERICAN > 60; GLUCOSE,RANDOM 112 mg/dL (65-105); POTASSIUM 4.3 MMOL/L (3.6-5.0); SODIUM 140 mmol/l (132-148); TOTAL PROTEIN 6.2 G/DL (6.3-8.2)
--- NOTE | 2017-01-16 10:24 | CP.PCM.CON ---
History of Present Illness - History of Present Illness History of Present Illness: This 86 year old female, former heavy cigarette smoker, was admitted to hospital after a fall at home resulting in her being on the floor for 5 days before she could call for help. She has a 6 month history of coughing up bloody sputum w/o complaint of chest pain or shortness of breath. The sputum was initially mucous admixed with some bright red blood, but over time has become dark colored bloody expectorate. Her appetite has been fair at best, but she does not think there has been weight loss. She denies having had fevers or chills during that time. She sleeps poorly, but this is not related to her respiratory status. She has some chronic constipation which has not changed, and her bladder has been functioning normally. She claims her current fall was not preceded by any dizziness, and she feels that there was likely LOC for an undetermined amount of time. She does complain of pain and swelling at the left wrist as a result of her fall. She does recall a past episode of pneumonia ( remote), but denies any other lung illness. 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 Review of Systems - Review of Systems All systems: reviewed and no additional remarkable complaints except - Constitutional Constitutional: As Per HPI - EENT Nose/Mouth/Throat: Change in Voice - Respiratory Respiratory: Cough, Hemoptysis - Musculoskeletal Additional comments: pain and bruising of the left wrist with swelling. - Neurological Neurological: As Per HPI Past Patient History - Past Medical History & Family History Past Medical History?: Yes - Past Social History Smoking Status: Former Smoker Chewing Tobacco Use: No Cigar Use: No Alcohol: Social Drugs: Denies Home Situation {Lives}: Alone - CARDIAC Hx Cardiac Disorders: No - PULMONARY Hx Pneumonia: Yes Other/Comment: bloody sputum for the last 6 months - NEUROLOGICAL Hx Neurological Disorder: No - HEENT Hx HEENT Problems: No - RENAL Hx Chronic Kidney Disease: No - ENDOCRINE/METABOLIC Hx Endocrine Disorders: No - HEMATOLOGICAL/ONCOLOGICAL Hx Anemia: Yes - INTEGUMENTARY Hx Dermatological Problems: No - MUSCULOSKELETAL/RHEUMATOLOGICAL Hx Falls: Yes Hx Osteoporosis: Yes Other/Comment: Osteopenia - GASTROINTESTINAL Hx Gastrointestinal Disorders: No - GENITOURINARY/GYNECOLOGICAL Hx Genitourinary Disorders: No - PSYCHIATRIC Hx Psychophysiologic Disorder: No Hx Substance Use: No - SURGICAL HISTORY Hx Surgeries: No - ANESTHESIA Hx Anesthesia: No Meds Allergies/Adverse Reactions: Allergies Allergy/AdvReac Type Severity Reaction Status Date / Time Penicillins Allergy RASH Verified 11/25/16 14:28 Sulfa (Sulfonamide Allergy RASH Verified 11/25/16 14:28 Antibiotics) - Medications Medications: Current Medications Duloxetine HCl (Cymbalta) 20 mg PO DAILY [facility] Last Admin: 01/15/17 09:33 Dose: 20 mg Duloxetine HCl (Cymbalta) 30 mg PO DAILY [facility] Last Admin: 01/15/17 09:34 Dose: 30 mg Enoxaparin Sodium (Lovenox) 40 mg SC DAILY [facility] PRN Reason: Protocol Last Admin: 01/15/17 09:34 Dose: 40 mg Iron Sucrose 200 mg/ Sodium (Chloride) 110 mls @ 110 mls/hr IVPB DAILY [facility] Stop: 01/19/17 09:01 Ondansetron HCl (Zofran Inj) 4 mg IVP Q4 PRN PRN Reason: Nausea/Vomiting Physical Exam - Additional Findings Additional findings: Thin, chronically ill appearing female in no acute distress. Pharynx is pink and moist w/o exudate. Nares are patent bilaterally w/o bleeding. Conjunctivae are pale w/o scleral icterus. Neck is supple with midline trachea. No JVD or carotid bruit. Carotid upstroke is blunted bilaterally, no palpable thyromegaly. No cervical, supraclavicular or axillary adenopathy. Equal chest expansion, normal VTF, no dullness on percussion. Breath sounds are diminished bilaterally w/o audible wheezes or bronchial breath sounds. Rare dry basal rales posteriorly, occasioanl rhonchi, no rub or egophony. Heart sounds are distant, rhythm is regular, CHUCKY at base. Abdomen is soft and non-tender with + BS. No dependant edema of the LE's, no calf tenderness, no cyanosis. Results - Vital Signs Recent Vital Signs: Last Vital Signs Temp 98 F 01/16/17 08:13 Pulse 75 01/16/17 08:13 Resp 18 01/16/17 08:13 BP 138/67 01/16/17 08:13 Pulse Ox 100 01/16/17 08:13 - Labs Result Diagrams: 01/16/17 06:45 01/16/17 06:45 Labs: Laboratory Results - last 24 hr 01/15/17 01/15/17 01/16/17 06:45 15:47 06:45 WBC 7.7 RBC 3.55 L Hgb 8.6 L Hct 27.4 L MCV 77.2 L D MCH 24.1 L MCHC 31.2 L RDW 16.9 H Plt Count 316 MPV 7.7 Neut % (Auto) 67.2 Lymph % (Auto) 16.7 L [place] % (Auto) 12.8 H Eos % (Auto) 2.8 Baso % (Auto) 0.5 Neut # 5.2 Lymph # 1.3 [place] # 1.0 H Eos # 0.2 Baso # 0.0 Sodium Potassium Chloride Carbon Dioxide Anion Gap BUN Creatinine Est GFR ( Amer) Est GFR (Non-Af Amer) Random Glucose Calcium Total Bilirubin AST ALT Alkaline Phosphatase Total Creatine Kinase Troponin I 0.0740 Total Protein Albumin Globulin Albumin/Globulin Ratio Vitamin B12 Blood Type A POSITIVE Antibody Screen Negative Crossmatch See Detail BBK History Checked Patient has bt 01/16/17 06:45 WBC RBC Hgb Hct MCV MCH MCHC RDW Plt Count MPV Neut % (Auto) Lymph % (Auto) [place] % (Auto) Eos % (Auto) Baso % (Auto) Neut # Lymph # [place] # Eos # Baso # Sodium 140 Potassium 4.3 Chloride 105 Carbon Dioxide 26 Anion Gap 13 BUN 33 H Creatinine 0.9 Est GFR ( Amer) > 60 Est GFR (Non-Af Amer) 59 Random Glucose 112 H Calcium 9.0 Total Bilirubin 1.0 AST 66 H D ALT 55 H Alkaline Phosphatase 69 Total Creatine Kinase 277 H Troponin I Total Protein 6.2 L Albumin 3.5 Globulin 2.8 Albumin/Globulin Ratio 1.3 Vitamin B12 > 1000 H Blood Type Antibody Screen Crossmatch BBK History Checked Assessment & Plan (1) Cough with hemoptysis Status: Chronic Priority: High (2) Pulmonary mass Status: Acute Priority: High (3) Fall Status: Acute Priority: High (4) Traumatic rhabdomyolysis Status: Acute Priority: High - Assessment and Plan (Free Text) Plan: 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 Sputum collections have been requested, culture and cytologies. Quantiferon TB Gold requested to rule out latent disease. Flexible bronchoscopy with lavage and brushing planned (she had ASA and clopidogrel yesterday, so biopsy will not be done now). Aerosol therapy with low dose albuterol QID. Monitoring of LFT's and renal function. - Date & Time Date: 01/16/17 Time: 10:42
--- NOTE | 2017-01-16 10:25 | CP.PCM.PN ---
Subjective - Date & Time of Evaluation Date of Evaluation: 01/16/17 Time of Evaluation: 10:00 - Subjective Subjective: Pt denies any SOB still with some hemoptysis but better + cough no fever no CP no abd pain still with Hip pain , left but better left wrist pain better Son at bedside , dicussed all test results with pt na her son and plan for Bronchoscopy - both agreed to the procedure Objective - Vital Signs/Intake and Output Vital Signs (last 24 hours): Temp Pulse Resp BP Pulse Ox 98 F 75 18 138/67 100 01/16/17 08:13 01/16/17 08:13 01/16/17 08:13 01/16/17 08:13 01/16/17 08:13 - Medications Medications: Current Medications Duloxetine HCl (Cymbalta) 20 mg PO DAILY [facility] Last Admin: 01/15/17 09:33 Dose: 20 mg Duloxetine HCl (Cymbalta) 30 mg PO DAILY [facility] Last Admin: 01/15/17 09:34 Dose: 30 mg Enoxaparin Sodium (Lovenox) 40 mg SC DAILY [facility] PRN Reason: Protocol Last Admin: 01/15/17 09:34 Dose: 40 mg Iron Sucrose 200 mg/ Sodium (Chloride) 110 mls @ 110 mls/hr IVPB DAILY [facility] Stop: 01/19/17 09:01 Ondansetron HCl (Zofran Inj) 4 mg IVP Q4 PRN PRN Reason: Nausea/Vomiting - Labs Labs: 01/16/17 06:45 01/16/17 06:45 PT 11.4 SECONDS (9.6-11.2) H 01/14/17 10:20 INR 1.10 (0.92-1.08) H 01/14/17 10:20 APTT 25.9 SECONDS (23.3-32.5) 01/14/17 10:20 - Constitutional Appears: No Acute Distress, Chronically Ill - Head Exam Head Exam: NORMAL INSPECTION, NORMOCEPHALIC - Eye Exam Eye Exam: EOMI, Normal appearance Pupil Exam: NORMAL ACCOMODATION - ENT Exam ENT Exam: Mucous Membranes Moist, Normal External Ear Exam - Neck Exam Neck Exam: Full ROM. absent: Meningismus - Respiratory Exam Respiratory Exam: Decreased Breath Sounds, Rales (min rales bases), NORMAL BREATHING PATTERN. absent: Respiratory Distress - Cardiovascular Exam Cardiovascular Exam: REGULAR RHYTHM, +S1, +S2 - GI/Abdominal Exam GI & Abdominal Exam: Soft, Normal Bowel Sounds. absent: Tenderness - Extremities Exam Extremities Exam: Normal Capillary Refill. absent: Calf Tenderness, Pedal Edema Additional comments: left hip pain on ROM left wrist tenderness on palpation Assessment and Plan (1) Pulmonary mass Status: Acute (2) Syncope Status: Acute (3) Fall Status: Acute (4) Anemia Status: Acute (5) Traumatic rhabdomyolysis Status: Acute (6) Dehydration Status: Acute (7) Depression Status: Chronic (8) DVT prophylaxis Status: Acute - Assessment and Plan (Free Text) Assessment: 86 y/o lady with hx of Depression, lives alone, was brought in after she was found down at home. Pt states that she felt faint and fell however was unable to get up after falling so was down on the floor for a few days until she could crawl to the phone. In the ED , labs showed dehydration, elevated CK level. Pt also gives hx of hemoptysis for the past [address] of chest showed Pulm mass. (1) Pulmonary mass Status: Acute CT of Chest :Ill-defined right upper lobe - suprahilar mass density which exhibits spiculated borders and abuts the right aspect of the mediastinum as well as along its posterior inferior border the bronchus intermedius which is compressed. Upper lobe this lesion may represent a primary tumor. There also appears to be early postobstructive changes right upper lobe. - Pulm consulted : Dr Sidhu- plan for Bronchoscopy in am -Discussed CT result with pt and son - Sputum Cytology (2) Syncope prob sec to hypovolemia, CVA ruled out Status: Acute Pt was anemic on admission hgb8.6 Pt has been very weak for the past few days , found to have some anemia CT of head : neg MRI of brain : no acute bleed nor infarct Carotid sono; no significant stenosis Doppler US : no DVT Pt denies any motor weakness nor sensory deficit - her weakness was generalized d/c ASA and Plavix due to the Hemoptysis (3) Fall Status: Acute Pt feel on her left side complains of left hip pain and left wrist pain Hip xray ; no fracture CT of head ; no frcature nor bleed Wrist xray : nondisplaced fracture - family states that pt had previous fracture on the same wrist, does not want any surgical intervention (4) Anemia chronic prob sec to Hemoptysis and Chronic disease Status: Acute Transfused 1 unit PRBC hgb 7.6 now up to 8.6 (5) Traumatic rhabdomyolysis Status: Acute IVF hydration Pt came with elevated CK level after falling down CK trending down from 1157 to 500s (6) Dehydration Status: Acute IVF hydration (7) Depression Status: Chronic cont Cymbalata (8) DVT prophylaxis Status: Acute Lovenox - hold in am - pt for Bronchoscopy
[2017-01-16] MEDS: Enoxaparin 40 mg Syringe SC SCH (10:46)
[2017-01-16] MEDS: Albuterol 0.042% Inhal Sol (1.25 mg/3 mL) UD INH SCH ×2 (15:55→20:10)
[2017-01-16 16:09] LABS: FOLATE > 20.0 ng/mL
--- NOTE | 2017-01-16 20:50 | CP.PCM.PN ---
Subjective - Date & Time of Evaluation Date of Evaluation: 01/16/17 Time of Evaluation: 17:00 - Subjective Subjective: No complaints. Objective - Vital Signs/Intake and Output Vital Signs (last 24 hours): Temp Pulse Resp BP Pulse Ox 99 F 80 18 133/63 96 01/16/17 20:24 01/16/17 20:24 01/16/17 20:24 01/16/17 20:24 01/16/17 20:24 - Medications Medications: Current Medications Albuterol Sulfate (Albuterol 0.042% Inhal Jane (1.25mg/3ml) Ud) 1.25 mg INH RQID [facility] Last Admin: 01/16/17 20:10 Dose: 1.25 mg Duloxetine HCl (Cymbalta) 20 mg PO DAILY [facility] Last Admin: 01/16/17 09:48 Dose: 20 mg Duloxetine HCl (Cymbalta) 30 mg PO DAILY [facility] Last Admin: 01/16/17 09:47 Dose: 30 mg Enoxaparin Sodium (Lovenox) 40 mg SC DAILY [facility] PRN Reason: Protocol Last Admin: 01/16/17 10:46 Dose: Not Given Iron Sucrose 200 mg/ Sodium (Chloride) 110 mls @ 110 mls/hr IVPB DAILY [facility] Stop: 01/19/17 09:01 Last Admin: 01/16/17 13:00 Dose: 110 mls/hr Ondansetron HCl (Zofran Inj) 4 mg IVP Q4 PRN PRN Reason: Nausea/Vomiting - Labs Labs: 01/16/17 06:45 01/16/17 06:45 PT 11.4 SECONDS (9.6-11.2) H 01/14/17 10:20 INR 1.10 (0.92-1.08) H 01/14/17 10:20 APTT 25.9 SECONDS (23.3-32.5) 01/14/17 10:20 - Head Exam Head Exam: ATRAUMATIC - Eye Exam Eye Exam: Normal appearance - ENT Exam ENT Exam: Mucous Membranes Dry - Respiratory Exam Respiratory Exam: NORMAL BREATHING PATTERN - Cardiovascular Exam Cardiovascular Exam: +S1, +S2 - GI/Abdominal Exam GI & Abdominal Exam: Normal Bowel Sounds - Extremities Exam Extremities Exam: Normal Inspection Assessment and Plan (1) Anemia Assessment & Plan: borderline iron stores s/p PRBC transfusion parenteral iron f/u FOBT Status: Acute (2) Pulmonary mass Assessment & Plan: for bronchoscopy for further evaluation suspicious for malignancy Status: Acute
[2017-01-17] MEDS: Albuterol 0.042% Inhal Sol (1.25 mg/3 mL) UD INH SCH ×4 (07:50→19:13)
[2017-01-17] MEDS ORDERED: Propofol 10 mg/ml Inj (20 ML) ONE (08:55)
[2017-01-17] MEDS ORDERED: Sodium Chloride 0.9% 0 ML IV ONE (08:55)
[2017-01-17] MEDS ORDERED: Lidocaine 1% Inj (20ml) ONE ×2 (08:55→08:57)
[2017-01-17] MEDS ORDERED: Phenylephrine 10 mg/ml Inj ONE (08:55)
[2017-01-17] MEDS ORDERED: Lidocaine 2% Jelly (5 ml) TOP ONE (08:55)
[2017-01-17] MEDS ORDERED: EPINEPHrine 1 mg/ml (1:1000) Inj ONE (08:56)
[2017-01-17] MEDS ORDERED: Midazolam 2 MG/2 ML VIAL ONE (08:56)
[2017-01-17 09:30] LABS: HEMATOCRIT 26.8 % (34.0-47.0); MEAN CELL VOLUME 76.6 fl (81.0-99.0); MEAN CORPUSCULAR HEMOGLOBIN 24.8 pg (27.0-31.0); MEAN CORPUSCULAR HGB CONC 32.3 g/dL (33.0-37.0); RED CELL DISTRIBUTION WIDTH 17.3 % (11.5-14.5); WHITE BLOOD COUNT 6.2 K/uL (4.8-10.8)
[2017-01-17 09:38] LABS: BLOOD UREA NITROGEN 18 mg/dl (7-17); CARBON DIOXIDE 26 mmol/L (22-30); CHLORIDE 100 mmol/L (98-107); GFR AFRICAN-AMERICAN > 60; GLUCOSE,RANDOM 108 mg/dL (65-105); SODIUM 135 mmol/l (132-148)
[2017-01-17] MEDS ORDERED: Etomidate 20 mg/10ml Inj IV ONE (09:40)
[2017-01-17] MEDS ORDERED: Atropine 0.4 mg/ml Inj (1 mL) ONE (09:41)
[2017-01-17] MEDS ORDERED: Sodium Chloride 0.9% 500 ML IV ONE (10:07)
--- NOTE | 2017-01-17 11:26 | CP.PCM.PN ---
Subjective - Date & Time of Evaluation Date of Evaluation: 01/17/17 Time of Evaluation: 11:25 - Subjective Subjective: Unable to view post-bronchoscopy film; PACS not working. Objective - Vital Signs/Intake and Output Vital Signs (last 24 hours): Temp Pulse Resp BP Pulse Ox 97.3 F L 86 18 132/62 100 01/17/17 10:50 01/17/17 11:20 01/17/17 11:20 01/17/17 11:20 01/17/17 11:20 Intake and Output: 01/16/17 01/17/17 23:59 11:59 Intake Total 50 Balance 50 - Medications Medications: Current Medications Albuterol Sulfate (Albuterol 0.042% Inhal Jane (1.25mg/3ml) Ud) 1.25 mg INH RQID [facility] Last Admin: 01/17/17 07:50 Dose: 1.25 mg Duloxetine HCl (Cymbalta) 20 mg PO DAILY [facility] Last Admin: 01/16/17 09:48 Dose: 20 mg Duloxetine HCl (Cymbalta) 30 mg PO DAILY [facility] Last Admin: 01/16/17 09:47 Dose: 30 mg Enoxaparin Sodium (Lovenox) 40 mg SC DAILY [facility] PRN Reason: Protocol Last Admin: 01/16/17 10:46 Dose: Not Given Iron Sucrose 200 mg/ Sodium (Chloride) 110 mls @ 110 mls/hr IVPB DAILY [facility] Stop: 01/19/17 09:01 Last Admin: 01/16/17 13:00 Dose: 110 mls/hr Ondansetron HCl (Zofran Inj) 4 mg IVP Q4 PRN PRN Reason: Nausea/Vomiting - Labs Labs: 01/17/17 09:15 01/17/17 09:15 PT 11.4 SECONDS (9.6-11.2) H 01/14/17 10:20 INR 1.10 (0.92-1.08) H 01/14/17 10:20 APTT 25.9 SECONDS (23.3-32.5) 01/14/17 10:20 Assessment and Plan (1) Cough with hemoptysis Status: Chronic (2) Pulmonary mass Status: Acute (3) Fall Status: Acute (4) Traumatic rhabdomyolysis Status: Acute
--- NOTE | 2017-01-17 12:02 | RAD ---
HISTORY: s/p bronchoscopy COMPARISON: CT scan from 01/14/2017 FINDINGS: LUNGS: There is redemonstration of suprahilar mass and ill-defined airspace disease in the right upper. The lungs are hyperinflated. PLEURA: No significant pleural effusion identified, no pneumothorax apparent. CARDIOVASCULAR: The heart is normal in size. Atherosclerotic aortic arch calcifications are present. . OSSEOUS STRUCTURES: No significant abnormalities. VISUALIZED UPPER ABDOMEN: Normal. OTHER FINDINGS: None. IMPRESSION: Findings are most compatible with suprahilar mass and postobstructive atelectasis in the right upper lobe. COPD.
--- NOTE | 2017-01-17 14:41 | CP.PCM.PN ---
Subjective - Date & Time of Evaluation Date of Evaluation: 01/17/17 Time of Evaluation: 14:00 - Subjective Subjective: Pt seen after she got back from PACU ( post op) Pt states that she feels fine no SOB no CP her hemoptysis is better no abd pain Objective - Vital Signs/Intake and Output Vital Signs (last 24 hours): Temp Pulse Resp BP Pulse Ox 97.8 F 90 18 126/66 100 01/17/17 12:40 01/17/17 12:40 01/17/17 12:40 01/17/17 12:40 01/17/17 12:40 Intake and Output: 01/17/17 01/17/17 06:59 18:59 Intake Total 150 Balance 150 - Medications Medications: Current Medications Albuterol Sulfate (Albuterol 0.042% Inhal Jane (1.25mg/3ml) Ud) 1.25 mg INH RQID [facility] Last Admin: 01/17/17 11:39 Dose: Not Given Duloxetine HCl (Cymbalta) 20 mg PO DAILY [facility] Last Admin: 01/16/17 09:48 Dose: 20 mg Duloxetine HCl (Cymbalta) 30 mg PO DAILY [facility] Last Admin: 01/16/17 09:47 Dose: 30 mg Enoxaparin Sodium (Lovenox) 40 mg SC DAILY [facility] PRN Reason: Protocol Last Admin: 01/16/17 10:46 Dose: Not Given Iron Sucrose 200 mg/ Sodium (Chloride) 110 mls @ 110 mls/hr IVPB DAILY [facility] Stop: 01/19/17 09:01 Last Admin: 01/16/17 13:00 Dose: 110 mls/hr Ondansetron HCl (Zofran Inj) 4 mg IVP Q4 PRN PRN Reason: Nausea/Vomiting - Labs Labs: 01/17/17 09:15 01/17/17 09:15 PT 11.4 SECONDS (9.6-11.2) H 01/14/17 10:20 INR 1.10 (0.92-1.08) H 01/14/17 10:20 APTT 25.9 SECONDS (23.3-32.5) 01/14/17 10:20 - Constitutional Appears: No Acute Distress, Chronically Ill - Head Exam Head Exam: NORMAL INSPECTION, NORMOCEPHALIC - Eye Exam Eye Exam: EOMI, Normal appearance Pupil Exam: NORMAL ACCOMODATION - ENT Exam ENT Exam: Mucous Membranes Moist, Normal External Ear Exam - Neck Exam Neck Exam: Full ROM. absent: Meningismus - Respiratory Exam Respiratory Exam: Decreased Breath Sounds, Rales (min rales bases), NORMAL BREATHING PATTERN. absent: Respiratory Distress - Cardiovascular Exam Cardiovascular Exam: REGULAR RHYTHM, +S1, +S2 - GI/Abdominal Exam GI & Abdominal Exam: Soft, Normal Bowel Sounds. absent: Tenderness - Extremities Exam Extremities Exam: Normal Capillary Refill. absent: Calf Tenderness, Pedal Edema Additional comments: left hip pain on ROM left wrist tenderness on palpation Assessment and Plan (1) Pulmonary mass Status: Acute (2) Syncope Status: Acute (3) Fall Status: Acute (4) Anemia Status: Acute (5) Traumatic rhabdomyolysis Status: Acute (6) Dehydration Status: Acute (7) Depression Status: Chronic (8) DVT prophylaxis Status: Acute - Assessment and Plan (Free Text) Assessment: 86 y/o lady with hx of Depression, lives alone, was brought in after she was found down at home. Pt states that she felt faint and fell however was unable to get up after falling so was down on the floor for a few days until she could crawl to the phone. In the ED , labs showed dehydration, elevated CK level. Pt also gives hx of hemoptysis for the past [address] of chest showed Pulm mass. (1) Pulmonary mass Status: Acute CT of Chest :Ill-defined right upper lobe - suprahilar mass density which exhibits spiculated borders and abuts the right aspect of the mediastinum as well as along its posterior inferior border the bronchus intermedius which is compressed. Upper lobe this lesion may represent a primary tumor. There also appears to be early postobstructive changes right upper lobe. - Pulm consulted : Dr Sidhu Bronchoscopy done this morning - noted clot obstructing her airway, brushings done, no biopsy as pt had recent antiplatelets Discussed CT result with pt and son -Sputum Cytology Oncology consulted: Dr aguirre (2) Syncope prob sec to hypovolemia, CVA ruled out Status: Acute Pt was anemic on admission hgb8.6 Pt has been very weak for the past few days , found to have some anemia CT of head : neg MRI of brain : no acute bleed nor infarct Carotid sono; no significant stenosis Doppler US : no DVT Pt denies any motor weakness nor sensory deficit - her weakness was generalized d/c ASA and Plavix due to the Hemoptysis Physical therapy consult (3) Fall Status: Acute Pt feel on her left side complains of left hip pain and left wrist pain Hip xray ; no fracture CT of head ; no frcature nor bleed Wrist xray : nondisplaced fracture - family states that pt had previous fracture on the same wrist Ct of the wrist (4) Anemia chronic prob sec to Hemoptysis and Chronic disease Status: Acute Transfused 1 unit PRBC hgb 7.6 now up to 8.7 (5) Traumatic rhabdomyolysis Status: Acute IVF hydration Pt came with elevated CK level after falling down CK trending down from 1157 to 141 (6) Dehydration Status: Acute IVF hydration (7) Depression Status: Chronic cont Cymbalata 8. Nondisplaced Fracture Distal Radius, left Wrist xray read as nondisplaced vs minimally displaced fracture CT of left wrist Hand Surgery consult (9) DVT prophylaxis Status: Acute Lovenox
--- NOTE | 2017-01-17 17:51 | CP.PCM.PN ---
Subjective - Date & Time of Evaluation Date of Evaluation: 01/17/17 Time of Evaluation: 14:00 - Subjective Subjective: No complaints s/p bronchoscopy Objective - Vital Signs/Intake and Output Vital Signs (last 24 hours): Temp Pulse Resp BP Pulse Ox 98.8 F 91 H 18 134/88 99 01/17/17 16:09 01/17/17 16:09 01/17/17 16:09 01/17/17 16:09 01/17/17 16:09 Intake and Output: 01/17/17 01/17/17 06:59 18:59 Intake Total 150 Balance 150 - Medications Medications: Current Medications Albuterol Sulfate (Albuterol 0.042% Inhal Jane (1.25mg/3ml) Ud) 1.25 mg INH RQID [facility] Last Admin: 01/17/17 15:57 Dose: 1.25 mg Duloxetine HCl (Cymbalta) 20 mg PO DAILY [facility] Last Admin: 01/16/17 09:48 Dose: 20 mg Duloxetine HCl (Cymbalta) 30 mg PO DAILY [facility] Last Admin: 01/16/17 09:47 Dose: 30 mg Enoxaparin Sodium (Lovenox) 40 mg SC DAILY [facility] PRN Reason: Protocol Last Admin: 01/16/17 10:46 Dose: Not Given Iron Sucrose 200 mg/ Sodium (Chloride) 110 mls @ 110 mls/hr IVPB DAILY [facility] Stop: 01/19/17 09:01 Last Admin: 01/16/17 13:00 Dose: 110 mls/hr Ondansetron HCl (Zofran Inj) 4 mg IVP Q4 PRN PRN Reason: Nausea/Vomiting - Labs Labs: 01/17/17 09:15 01/17/17 09:15 PT 11.4 SECONDS (9.6-11.2) H 01/14/17 10:20 INR 1.10 (0.92-1.08) H 01/14/17 10:20 APTT 25.9 SECONDS (23.3-32.5) 01/14/17 10:20 - Head Exam Head Exam: ATRAUMATIC - Eye Exam Eye Exam: Normal appearance - ENT Exam ENT Exam: Mucous Membranes Dry - Respiratory Exam Respiratory Exam: NORMAL BREATHING PATTERN - Cardiovascular Exam Cardiovascular Exam: +S1, +S2 - GI/Abdominal Exam GI & Abdominal Exam: Normal Bowel Sounds Assessment and Plan (1) Anemia Assessment & Plan: borderline iron stores s/p PRBC transfusion and on Venofer f/u FOBT Status: Acute (2) Pulmonary mass Assessment & Plan: suspicious for malignancy s/p bronchoscopy; f/u path Status: Acute
--- NOTE | 2017-01-17 22:54 | CT ---
EXAM: CT Left Upper Extremity Without Intravenous Contrast, Wrist CLINICAL HISTORY: 86 years old, female; Injury or trauma; Fall; Initial encounter; Blunt trauma (contusions or hematomas; Wrist; Left; Additional info: Left distal radius ? fracture TECHNIQUE: Axial computed tomography images of the left wrist without intravenous contrast. This CT exam was performed using one or more of the following dose reduction techniques: automated exposure control, adjustment of the mA and/or kV according to patient size, and/or use of iterative reconstruction technique. Coronal and sagittal reformatted images were created and reviewed. EXAM DATE/TIME: 01/17/2017 4:42 PM COMPARISON: CR - WRIST, LEFT 3 VIEWS 01/15/2017 4:30:51 PM FINDINGS: Bones/joints: Distal ulna is intact. There is a comminuted impacted distal radial fracture. There is a complex perilunate dislocation with malalignment of the capitate. Dorsal tilt suggests disruption of the stabilizing radial ligaments. Distal ulna is intact. No acute carpal fractures are identified. 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 There is deformity of the navicular with subchondral cysts. There is marked degenerative change at the first carpal metacarpal joint. Visualized portions of the of the metacarpals are intact. Soft tissues: There is soft tissue swelling at the wrist. There is dystrophic calcification in volar tendon/ligaments. IMPRESSION: Impacted distal radial fracture with complex perilunate dislocation; degenerative change Orthopedic consultation advised
[2017-01-18] MEDS: Albuterol 0.042% Inhal Sol (1.25 mg/3 mL) UD INH SCH ×4 (07:40→19:30)
[2017-01-18 07:41] LABS: HEMATOCRIT 26.9 % (34.0-47.0); MEAN CELL VOLUME 76.5 fl (81.0-99.0); MEAN CORPUSCULAR HEMOGLOBIN 24.7 pg (27.0-31.0); MEAN CORPUSCULAR HGB CONC 32.4 g/dL (33.0-37.0); RED CELL DISTRIBUTION WIDTH 17.9 % (11.5-14.5); WHITE BLOOD COUNT 7.3 K/uL (4.8-10.8)
[2017-01-18 08:11] LABS: BLOOD UREA NITROGEN 14 mg/dl (7-17); CALCIUM 8.9 mg/dL (8.4-10.2); CARBON DIOXIDE 27 mmol/L (22-30); CHLORIDE 101 mmol/L (98-107); GFR AFRICAN-AMERICAN > 60; GLUCOSE,RANDOM 103 mg/dL (65-105); POTASSIUM 4.2 MMOL/L (3.6-5.0); SODIUM 136 mmol/l (132-148)
[2017-01-18] MEDS: Enoxaparin 40 mg Syringe SC SCH (09:17)
--- NOTE | 2017-01-18 09:53 | CP.PCM.PN ---
Subjective - Date & Time of Evaluation Date of Evaluation: 01/18/17 Time of Evaluation: 09:50 - Subjective Subjective: The patient was seen on rounds and telemetry this morning. She remains clinically stable post-bronchoscopy. She continues to have some bloody sputum expectoration which is expected. Chest x-ray postprocedure shows continual right suprahilar mass with volume loss in the right upper lobe. Her vital signs have been stable and she remains afebrile. Gram stain of the bronchial washings shows gram-positive cocci bacilli, few yeast, few gram-positive cocci in pairs. Culture is pending at this time. On physical exam there is no change in her clinical status. I would consider at this time beginning empiric antibiotic coverage using trimethoprim/sulfa in view of the possibility of nocardia. Cytology reports should be available in another 24-48 hours. Very good possibility that a repeat bronchoscopy will be necessary when the effects of the aspirin and clopidogrel have dissipated. The most likely diagnosis in this patient still remains neoplastic disease. Objective - Vital Signs/Intake and Output Vital Signs (last 24 hours): Temp Pulse Resp BP Pulse Ox 98.2 F 81 18 132/53 L 99 01/18/17 08:06 01/18/17 08:06 01/18/17 08:06 01/18/17 08:06 01/18/17 08:06 Intake and Output: 01/17/17 01/18/17 23:59 11:59 Intake Total 1150 Output Total 650 Balance 500 - Medications Medications: Current Medications Albuterol Sulfate (Albuterol 0.042% Inhal Jane (1.25mg/3ml) Ud) 1.25 mg INH RQID [facility] Last Admin: 01/18/17 07:40 Dose: 1.25 mg Duloxetine HCl (Cymbalta) 20 mg PO DAILY [facility] Last Admin: 01/18/17 09:13 Dose: 20 mg Duloxetine HCl (Cymbalta) 30 mg PO DAILY [facility] Last Admin: 01/18/17 09:13 Dose: 30 mg Enoxaparin Sodium (Lovenox) 40 mg SC DAILY [facility] PRN Reason: Protocol Last Admin: 01/18/17 09:17 Dose: Not Given Iron Sucrose 200 mg/ Sodium (Chloride) 110 mls @ 110 mls/hr IVPB DAILY [facility] Stop: 01/19/17 09:01 Last Admin: 01/18/17 09:12 Dose: 110 mls/hr Ondansetron HCl (Zofran Inj) 4 mg IVP Q4 PRN PRN Reason: Nausea/Vomiting - Labs Labs: 01/18/17 07:29 01/18/17 07:29 PT 11.4 SECONDS (9.6-11.2) H 01/14/17 10:20 INR 1.10 (0.92-1.08) H 01/14/17 10:20 APTT 25.9 SECONDS (23.3-32.5) 01/14/17 10:20 Assessment and Plan (1) Cough with hemoptysis Status: Chronic (2) Pulmonary mass Status: Acute (3) Fall Status: Acute (4) Traumatic rhabdomyolysis Status: Acute
--- NOTE | 2017-01-18 10:01 | CARD ---
APPROVED REPORT EKG Measurement Heart [id number] <Conclusion> Normal sinus rhythm Incomplete right bundle branch block Left anterior fascicular block Cannot rule out Anteroseptal infarct, age undetermined Abnormal ECG
--- NOTE | 2017-01-18 17:47 | CP.PCM.PN ---
Subjective - Date & Time of Evaluation Date of Evaluation: 01/18/17 Time of Evaluation: 15:30 - Subjective Subjective: Patient was seen and examined bedside. Sitting in chair in NAD. Feeling better. With less episodes of hemoptysis today , denies any CP or SOB. No acute issues overnight Hemodynamically stable, afebrile Objective - Vital Signs/Intake and Output Vital Signs (last 24 hours): Temp Pulse Resp BP Pulse Ox 98.5 F 81 18 111/67 100 01/18/17 16:00 01/18/17 16:00 01/18/17 16:00 01/18/17 16:00 01/18/17 16:00 - Medications Medications: Current Medications Albuterol Sulfate (Albuterol 0.042% Inhal Jane (1.25mg/3ml) Ud) 1.25 mg INH RQID [facility] Last Admin: 01/18/17 15:22 Dose: 1.25 mg Duloxetine HCl (Cymbalta) 20 mg PO DAILY [facility] Last Admin: 01/18/17 09:13 Dose: 20 mg Duloxetine HCl (Cymbalta) 30 mg PO DAILY [facility] Last Admin: 01/18/17 09:13 Dose: 30 mg Enoxaparin Sodium (Lovenox) 40 mg SC DAILY [facility] PRN Reason: Protocol Last Admin: 01/18/17 09:17 Dose: Not Given Iron Sucrose 200 mg/ Sodium (Chloride) 110 mls @ 110 mls/hr IVPB DAILY [facility] Stop: 01/19/17 09:01 Last Admin: 01/18/17 09:12 Dose: 110 mls/hr Ondansetron HCl (Zofran Inj) 4 mg IVP Q4 PRN PRN Reason: Nausea/Vomiting - Labs Labs: 01/18/17 07:29 01/18/17 07:29 PT 11.4 SECONDS (9.6-11.2) H 01/14/17 10:20 INR 1.10 (0.92-1.08) H 01/14/17 10:20 APTT 25.9 SECONDS (23.3-32.5) 01/14/17 10:20 - Constitutional Appears: Non-toxic, No Acute Distress - Head Exam Head Exam: ATRAUMATIC, NORMAL INSPECTION, NORMOCEPHALIC - Eye Exam Eye Exam: EOMI, Normal appearance, PERRL Pupil Exam: NORMAL ACCOMODATION - ENT Exam ENT Exam: Mucous Membranes Moist, Normal Exam - Neck Exam Neck Exam: Full ROM, Normal Inspection - Respiratory Exam Respiratory Exam: Clear to Ausculation Bilateral, NORMAL BREATHING PATTERN. absent: Accessory Muscle Use, Prolonged Expiratory Phase, Rales, Wheezes, Respiratory Distress - Cardiovascular Exam Cardiovascular Exam: REGULAR RHYTHM, RRR, +S1, +S2. absent: JVD - GI/Abdominal Exam GI & Abdominal Exam: Soft, Normal Bowel Sounds. absent: Distended, Guarding, Tenderness, Rebound - Rectal Exam Rectal Exam: Deferred - Extremities Exam Extremities Exam: Normal Capillary Refill, Normal Inspection. absent: Calf Tenderness, Pedal Edema - Back Exam Back Exam: NORMAL INSPECTION - Neurological Exam Neurological Exam: Alert, Awake, CN II-XII Intact, Oriented x3 - Psychiatric Exam Psychiatric exam: Normal Affect, Normal Mood - Skin Skin Exam: Dry, Intact, Pallor, Warm Assessment and Plan - Assessment and Plan (Free Text) Assessment: 86 y/o lady with hx of Depression, lives alone, was brought in after she was found down at home. Patient stated that she felt faint and fell however was unable to get up after falling so was down on the floor for a few days until she could crawl to the phone. In the ED , labs showed dehydration, elevated CK level. Pt also gave history of hemoptysis for the past [address] of chest showed right upper lobe Pulmonary mass. 1. Pulmonary mass Acute CT of Chest :Ill-defined right upper lobe - suprahilar mass density which exhibits spiculated borders and abuts the right aspect of the mediastinum as well as along its posterior inferior border the bronchus intermedius which is compressed. Upper lobe this lesion may represent a primary tumor. There also appears to be early postobstructive changes right upper lobe. Pulm consulted : Dr Sidhu s/p Bronchoscopy performed by Dr. Sidhu that showed clot obstructing her airway. Brushings done, no biopsy as pt had recent antiplatelets Hemoptysis improving Will follow up Cytology report and cultures Discussed all results with son Oncology consulted: Dr Jean 2. Syncope prob sec to hypovolemia, CVA ruled out Acute Pt was anemic on admission hgb 8.6 CT of head : neg MRI of brain : no acute bleed nor infarct Carotid sono; no significant stenosis Doppler US : no DVT Pt denies any motor weakness nor sensory deficit - her weakness was generalized d/c ASA and Plavix due to the Hemoptysis Physical therapy consulted 3.Fall Acute Left wrist showed non displaced fracture Hip xray ; no fracture CT of head ; no fracture nor bleed hand surgeon consulted and recommended wrist splint and follow up as outpatient 4. Wrist fracture hand surgeon consulted Dr. Hernandez Recommended splint and follow up as out patient 5. Anemia chronic prob sec to Hemoptysis and Chronic disease Anemi awork up showed low iron levels Transfused 1 unit PRBC hgb 7.6 now up to 8.7 Started Venofer 6. Traumatic rhabdomyolysis improved received hydration Pt came with elevated CK level after falling down CK trending down from 1157 to 141 7.Dehydration Acute received hydration 8. Depression Chronic cont Cymbalata 9. DVT prophylaxis Acute Lovenox
--- NOTE | 2017-01-19 01:11 | CP.PCM.PN ---
Subjective - Date & Time of Evaluation Date of Evaluation: 01/18/17 Time of Evaluation: 18:00 - Subjective Subjective: No complaints, feeling better. Objective - Vital Signs/Intake and Output Vital Signs (last 24 hours): Temp Pulse Resp BP Pulse Ox 98.5 F 93 H 20 126/74 98 01/19/17 00:24 01/19/17 00:24 01/19/17 00:24 01/19/17 00:24 01/19/17 00:24 - Medications Medications: Current Medications Albuterol Sulfate (Albuterol 0.042% Inhal Jane (1.25mg/3ml) Ud) 1.25 mg INH RQID [facility] Last Admin: 01/18/17 19:30 Dose: 1.25 mg Duloxetine HCl (Cymbalta) 20 mg PO DAILY [facility] Last Admin: 01/18/17 09:13 Dose: 20 mg Duloxetine HCl (Cymbalta) 30 mg PO DAILY [facility] Last Admin: 01/18/17 09:13 Dose: 30 mg Enoxaparin Sodium (Lovenox) 40 mg SC DAILY [facility] PRN Reason: Protocol Last Admin: 01/18/17 09:17 Dose: Not Given Iron Sucrose 200 mg/ Sodium (Chloride) 110 mls @ 110 mls/hr IVPB DAILY [facility] Stop: 01/19/17 09:01 Last Admin: 01/18/17 09:12 Dose: 110 mls/hr Ondansetron HCl (Zofran Inj) 4 mg IVP Q4 PRN PRN Reason: Nausea/Vomiting - Labs Labs: 01/18/17 07:29 01/18/17 07:29 PT 11.4 SECONDS (9.6-11.2) H 01/14/17 10:20 INR 1.10 (0.92-1.08) H 01/14/17 10:20 APTT 25.9 SECONDS (23.3-32.5) 01/14/17 10:20 - Head Exam Head Exam: ATRAUMATIC - Eye Exam Eye Exam: Normal appearance - ENT Exam ENT Exam: Mucous Membranes Dry - Respiratory Exam Respiratory Exam: NORMAL BREATHING PATTERN - Cardiovascular Exam Cardiovascular Exam: +S1, +S2 - GI/Abdominal Exam GI & Abdominal Exam: Normal Bowel Sounds - Extremities Exam Extremities Exam: Pedal Edema Assessment and Plan (1) Anemia Assessment & Plan: borderline iron stores s/p PRBC transfusion on Venofer f/u FOBT Status: Acute (2) Pulmonary mass Assessment & Plan: s/p bronchoscopy f/u path Status: Acute
[2017-01-19 06:48] LABS: HEMATOCRIT 27.1 % (34.0-47.0); MEAN CORPUSCULAR HEMOGLOBIN 24.8 pg (27.0-31.0); MEAN CORPUSCULAR HGB CONC 32.2 g/dL (33.0-37.0); RED CELL DISTRIBUTION WIDTH 17.9 % (11.5-14.5); WHITE BLOOD COUNT 7.4 K/uL (4.8-10.8)
[2017-01-19 07:23] LABS: BLOOD UREA NITROGEN 11 mg/dl (7-17); CALCIUM 8.9 mg/dL (8.4-10.2); CARBON DIOXIDE 26 mmol/L (22-30); CHLORIDE 100 mmol/L (98-107); GFR AFRICAN-AMERICAN > 60; GLUCOSE,RANDOM 104 mg/dL (65-105); POTASSIUM 3.8 MMOL/L (3.6-5.0); SODIUM 134 mmol/l (132-148)
[2017-01-19] MEDS: Albuterol 0.042% Inhal Sol (1.25 mg/3 mL) UD INH SCH ×4 (07:40→19:12)
[2017-01-19 08:24] VITALS: RESP 18
[2017-01-19] MEDS: Enoxaparin 40 mg Syringe SC SCH (09:23)
--- NOTE | 2017-01-19 10:25 | CP.PCM.PN ---
Subjective - Date & Time of Evaluation Date of Evaluation: 01/19/17 Time of Evaluation: 10:22 - Subjective Subjective: Hemoptysis is gradually decreasing as the platelet inhibitor effects of meds wear off. She is feeling relatively well and should begin some physical therapy. The lab reports from the bronchoscopy are pending. Her hemoglobin has remained stable as has her renal function. Her vital signs are stable. She was not started on Bactrim because of sulfa allergy. I would observe off antibiotic for now since she is clinically stable. She may be transferred off telemetry to a regular medical floor. I have discussed with her the possibility of a second bronchoscopy after the ASA effect is gone, if needed. Objective - Vital Signs/Intake and Output Vital Signs (last 24 hours): Temp Pulse Resp BP Pulse Ox 98.3 F 81 18 136/57 L 98 01/19/17 08:24 01/19/17 08:24 01/19/17 08:24 01/19/17 08:24 01/19/17 08:24 - Medications Medications: Current Medications Albuterol Sulfate (Albuterol 0.042% Inhal Jane (1.25mg/3ml) Ud) 1.25 mg INH RQID [facility] Last Admin: 01/19/17 07:40 Dose: 1.25 mg Duloxetine HCl (Cymbalta) 20 mg PO DAILY [facility] Last Admin: 01/19/17 09:22 Dose: 20 mg Duloxetine HCl (Cymbalta) 30 mg PO DAILY [facility] Last Admin: 01/19/17 09:22 Dose: 30 mg Enoxaparin Sodium (Lovenox) 40 mg SC DAILY [facility] PRN Reason: Protocol Last Admin: 01/19/17 09:23 Dose: Not Given Ondansetron HCl (Zofran Inj) 4 mg IVP Q4 PRN PRN Reason: Nausea/Vomiting - Labs Labs: 01/19/17 06:00 01/19/17 06:00 PT 11.4 SECONDS (9.6-11.2) H 01/14/17 10:20 INR 1.10 (0.92-1.08) H 01/14/17 10:20 APTT 25.9 SECONDS (23.3-32.5) 01/14/17 10:20 Assessment and Plan (1) Cough with hemoptysis Status: Chronic (2) Pulmonary mass Status: Acute (3) Fall Status: Acute (4) Traumatic rhabdomyolysis Status: Acute
--- NOTE | 2017-01-19 12:44 | CP.PCM.DIS ---
Provider - Provider Date of Admission: 01/14/17 15:30 Attending physician: Gisela Paulson DO Primary care physician: Nicola Corona MD Consults: Pulmonary consult hematology hand surgeon PT/OT Time Spent in preparation of Discharge (in minutes): 20 Hospital Course - Lab Results Lab Results: Micro Results 01/17/17 04:00 Sputum Gram Stain - Final 01/17/17 04:00 Sputum Sputum Culture - Preliminary Gram Negative Curtis 01/17/17 Unknown Other: Please Indicate Mycobacterial Culture - Preliminary 01/17/17 Unknown Other: Please Indicate Gram Stain - Final Most Recent Lab Values WBC 7.4 K/uL (4.8-10.8) 01/19/17 06:00 RBC 3.52 Mil/uL (3.80-5.20) L 01/19/17 06:00 Hgb 8.7 g/dL (12.0-16.0) L 01/19/17 06:00 Hct 27.1 % (34.0-47.0) L 01/19/17 06:00 MCV 77.0 fl (81.0-99.0) L 01/19/17 06:00 MCH 24.8 pg (27.0-31.0) L 01/19/17 06:00 MCHC 32.2 g/dL (33.0-37.0) L 01/19/17 06:00 RDW 17.9 % (11.5-14.5) H 01/19/17 06:00 Plt Count 283 K/uL (130-400) 01/19/17 06:00 MPV 7.7 fl (7.2-11.7) 01/16/17 06:45 Neut % (Auto) 67.2 % (50.0-75.0) 01/16/17 06:45 Lymph % (Auto) 16.7 % (20.0-40.0) L 01/16/17 06:45 Garrard % (Auto) 12.8 % (0.0-10.0) H 01/16/17 06:45 Eos % (Auto) 2.8 % (0.0-4.0) 01/16/17 06:45 Baso % (Auto) 0.5 % (0.0-2.0) 01/16/17 06:45 Neut # 5.2 K/uL (1.8-7.0) 01/16/17 06:45 Lymph # 1.3 K/uL (1.0-4.3) 01/16/17 06:45 Garrard # 1.0 K/uL (0.0-0.8) H 01/16/17 06:45 Eos # 0.2 K/uL (0.0-0.7) 01/16/17 06:45 Baso # 0.0 K/uL (0.0-0.2) 01/16/17 06:45 Neutrophils % (Manual) 85 % (42-75) H 01/14/17 10:20 Lymphocytes % (Manual) 6 % (20-50) L 01/14/17 10:20 Monocytes % (Manual) 9 % (0-10) 01/14/17 10:20 Platelet Estimate Slightly increased (NORMAL) H 01/14/17 10:20 Large Platelets Present 01/14/17 10:20 Hypochromasia (manual) Slight 01/14/17 10:20 Anisocytosis (manual) Slight 01/14/17 10:20 Microcytosis (manual) Slight 01/14/17 10:20 Ovalocytes Slight 01/14/17 10:20 Retic Count 2.3 % (0.5-1.5) H 01/14/17 10:20 PT 11.4 SECONDS (9.6-11.2) H 01/14/17 10:20 INR 1.10 (0.92-1.08) H 01/14/17 10:20 APTT 25.9 SECONDS (23.3-32.5) 01/14/17 10:20 Sodium 134 mmol/l (132-148) 01/19/17 06:00 Potassium 3.8 MMOL/L (3.6-5.0) 01/19/17 06:00 Chloride 100 mmol/L (98-107) 01/19/17 06:00 Carbon Dioxide 26 mmol/L (22-30) 01/19/17 06:00 Anion Gap 12 (10-20) 01/19/17 06:00 BUN 11 mg/dl (7-17) 01/19/17 06:00 Creatinine 0.7 mg/dL (0.7-1.2) 01/19/17 06:00 Est GFR ( Amer) > 60 01/19/17 06:00 Est GFR (Non-Af Amer) > 60 01/19/17 06:00 POC Glucose (mg/dL) 100 mg/dL (65-110) 01/14/17 10:34 Random Glucose 104 mg/dL (65-105) 01/19/17 06:00 Calcium 8.9 mg/dL (8.4-10.2) 01/19/17 06:00 Iron 24 ug/dL (37-170) L 01/14/17 16:00 TIBC 347 ug/dL (250-450) 01/14/17 16:00 % Saturation 7 % (20-55) L 01/14/17 16:00 Ferritin 54.7 ng/mL 01/14/17 10:20 Total Bilirubin 1.0 mg/dl (0.2-1.3) 01/16/17 06:45 AST 66 U/L (14-36) H D 01/16/17 06:45 ALT 55 U/L (9-52) H 01/16/17 06:45 Alkaline Phosphatase 69 U/L (38-126) 01/16/17 06:45 Total Creatine Kinase 141 U/L (30-135) H 01/17/17 09:15 Troponin I 0.0740 ng/mL (0.00-0.120) 01/15/17 06:45 Total Protein 6.2 G/DL (6.3-8.2) L 01/16/17 06:45 Albumin 3.5 g/dL (3.5-5.0) 01/16/17 06:45 Globulin 2.8 gm/dL (2.2-3.9) 01/16/17 06:45 Albumin/Globulin Ratio 1.3 (1.0-2.1) 01/16/17 06:45 Vitamin B12 > 1000 pg/mL (239-931) H 01/16/17 06:45 Folate > 20.0 ng/mL 01/16/17 06:45 TB Test (QFT) Nil 0.04 IU/mL 01/16/17 10:59 TB Test Mitogen - Nil 2.22 IU/mL 01/16/17 10:59 TB Test TB - Nil <0.00 IU/mL 01/16/17 10:59 TB Test (QFT) Negative (Negative) 01/16/17 10:59 Blood Type A POSITIVE 01/15/17 15:47 Antibody Screen Negative 01/15/17 15:47 Crossmatch See Detail 01/15/17 15:47 BBK History Checked Patient has bt 01/15/17 15:47 - Hospital Course Hospital Course: 86 y/o lady with hx of Depression, lives alone, was brought in after she was found down at home. Patient stated that she felt faint and fell however was unable to get up after falling so was down on the floor for a few days until she could crawl to the phone. In the ED , labs showed dehydration, elevated CK level. Pt also gave history of hemoptysis for the past [address] of chest showed right upper lobe Pulmonary mass. She was admitted for Fall and Syncopy work up , rhabdomyelysis . she was started on IVF. Imaging showed acute non displaced fracture of left wrist and no other acute pathology. Hand surgery was cosnulted, Dr Hernandez and recommended wrist splint and follow upas outpatient. Pulmonary consulted for left upper lobe mass and hemoptysis and patient underwent bronchoscopy that showed clot obstructing the airway. 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 Oncology is consulted for further work up and treatment options. At present she is hemodynamically stable, hemoptysis has improved , no SOB. Pt consulted and recommended [facility] vs TCU. Will d/c patient to TCU for physical therapy 1. Pulmonary mass Acute CT of Chest :Ill-defined right upper lobe - suprahilar mass density which exhibits spiculated borders and abuts the right aspect of the mediastinum as well as along its posterior inferior border the bronchus intermedius which is compressed. Upper lobe this lesion may represent a primary tumor. There also appears to be early postobstructive changes right upper lobe. Pulm consulted : Dr Sidhu s/p Bronchoscopy performed by Dr. Sidhu that showed clot obstructing her airway. 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 Syncope prob sec to hypovolemia, CVA ruled out Acute Pt was anemic on admission hgb 8.6 CT of head : neg MRI of brain : no acute bleed nor infarct Carotid sono; no significant stenosis Doppler US : no DVT Pt denies any motor weakness nor sensory deficit - her weakness was generalized , more left leg pain d/c ASA and Plavix due to the Hemoptysis Physical therapy consulted and recommended PT.Will d/c to TCU for physical therapyh 3.Fall Acute Left wrist showed non displaced fracture Hip xray ; no fracture CT of head ; no fracture nor bleed hand surgeon consulted and recommended wrist splint and follow up as outpatient 4. Wrist fracture hand surgeon consulted Dr. Hernandez Recommended splint and follow up as out patient 5. Anemia chronic prob sec to Hemoptysis and Chronic disease Anemia work up showed low iron levels Transfused 1 unit PRBC hgb 7.6 now up to 8.7 Started Venofer and received 3 doses Willie start Ferrous sulfate Po 6. Traumatic rhabdomyolysis improved received hydration Pt came with elevated CK level after falling down CK trending down from 1157 to 141 7.Dehydration Acute received hydration 8. Depression Chronic cont Cymbalata 9. DVT prophylaxis Acute Lovenox Discharge Exam - Head Exam Head Exam: ATRAUMATIC, NORMAL INSPECTION, NORMOCEPHALIC - Eye Exam Eye Exam: EOMI, Normal appearance, PERRL Pupil Exam: NORMAL ACCOMODATION - ENT Exam ENT Exam: Mucous Membranes Moist, Normal Exam - Neck Exam Neck exam: Full Rom, Normal Inspection - Respiratory Exam Respiratory Exam: Clear to PA & Lateral, NORMAL BREATHING PATTERN. absent: Rales, Rhonchi, Wheezes - Cardiovascular Exam Cardiovascular Exam: REGULAR RHYTHM, RRR, +S1, +S2. absent: JVD - GI/Abdominal Exam GI & Abdominal Exam: Normal Bowel Sounds, Soft. absent: Distended, Guarding, Rebound, Tenderness - Rectal Exam Rectal Exam: Deferred - Extremities Exam Extremities exam: normal capillary refill, normal inspection, pedal pulses present - Back Exam Back exam: NORMAL INSPECTION - Neurological Exam Neurological exam: Alert, CN II-XII Intact, Oriented x3 - Psychiatric Exam Psychiatric exam: Normal Affect - Skin Skin Exam: Dry, Pallor, Warm Discharge Plan - Follow Up Plan Condition: STABLE Disposition: TRANSF TO SNF Patient education suggested?: Yes Instructions: Syncope (DC) Referrals: Nicola Corona MD [Primary Care Provider] -
[2017-01-19 16:39] VITALS: TEMP 98.5
[2017-01-19 20:16] VITALS: BP 123/67; PULSE 97; O2SAT 92
== END 2017-01-19 22:50 | DRG 181 ==
LOC: H.ER 09:52 → H.ERHOLD 15:30 → H.TEL 22:25
PROVIDERS: ADMIT Student in an Organized Health Care Education/Training Program; ATTEND Student in an Organized Health Care Education/Training Program
PROC: 30233N1 Transfusion of Nonautologous Red Blood Cells into Peripheral Vein, Percutaneous Approach (ICD-10-PCS; 2017-01-15)
PROC: 0B958ZX Drainage of Right Middle Lobe Bronchus, Via Natural or Artificial Opening Endoscopic, Diagnostic (ICD-10-PCS; 2017-01-17)
PROC: 0B948ZX Drainage of Right Upper Lobe Bronchus, Via Natural or Artificial Opening Endoscopic, Diagnostic (ICD-10-PCS; 2017-01-17)
PROC: 0B968ZX Drainage of Right Lower Lobe Bronchus, Via Natural or Artificial Opening Endoscopic, Diagnostic (ICD-10-PCS; principal; 2017-01-17 09:30)
DX: C34.11 Malignant neoplasm of upper lobe, right bronchus or lung (principal); S52.502A Unspecified fracture of the lower end of left radius, initial encounter for closed fracture; E86.0 Dehydration; D63.8 Anemia in other chronic diseases classified elsewhere; R55 Syncope and collapse; F32.9 Major depressive disorder, single episode, unspecified; E86.1 Hypovolemia; T79.6XXA Traumatic ischemia of muscle, initial encounter; W19.XXXA Unspecified fall, initial encounter; Y92.009 Unspecified place in unspecified non-institutional (private) residence as the place of occurrence of the external cause; Y93.9 Activity, unspecified; D50.9 Iron deficiency anemia, unspecified; Z87.891 Personal history of nicotine dependence; Z87.01 Personal history of pneumonia (recurrent); M81.0 Age-related osteoporosis without current pathological fracture; Z88.2 Allergy status to sulfonamides; Z86.73 Personal history of transient ischemic attack (TIA), and cerebral infarction without residual deficits; K59.09 Other constipation; R91.8 Other nonspecific abnormal finding of lung field

== ENCOUNTER 2017-01-19 16:30 | Inpatient (IN) | payer OTHER, MEDICARE ==
[2017-01-19 23:35] VITALS: BMI 20.1
[2017-01-20] MEDS ORDERED: Albuterol 0.083% Inhal Sol (2.5 mg/3 mL) UD INH STA (07:41)
[2017-01-20] MEDS ORDERED: Albuterol 0.083% Inhal Sol (2.5 mg/3 mL) UD INH PRN (07:41)
[2017-01-20 07:59] VITALS: RESP 20
[2017-01-20] MEDS: Enoxaparin 40 mg Syringe SC SCH (09:07)
--- NOTE | 2017-01-20 11:55 | CP.PCM.HP ---
History of Present Illness - History of Present Illness History of Present Illness: Hospitalist Admission H&P (patient was seen and examined at 11:45 AM 01/20/17 [id number] with the help of Nurse Putnam) 86 year old female (PMHx Depression) presented to [facility] ER after she was found on the floor at her home. Patient revealed at the time of her admission that she felt faint and fell but was unable to get up after falling. Because of this she remained on the floor for a few days until she was able to crawl to a phone. She was admitted on 01/14/17 for further evaluation and treatment for Syncope, Left Upper Lobe Mass, Rhabdomyolysis, Left Wrist Fracture, Anemia, and Dehydration. She was then discharged to TCU here at [facility] on 01/19/17 for PT/OT and further management. Please see individual Assessment and Plans below for further details. ROS: Blurriness of vision since admission Left Hip Pain since fall: worse after PT but states she does not require pain medication Has not moved bowels for 1 week Numbness that comes and goes bilateral toes (chronic) especially with activity Cough with occasional production of blood tinged sputum PMHx: Left Upper Lobe Mass, Syncope, Rhabdomyolysis, Anemia Iron Deficiency, Left Wrist Fracture, Depression, Osteopenia PSHx: Toe Surgeries ALL: PCN, Sulfa Medications: please see individual Assessment and Plan below for the medications that patient is currently on while in TCU Social Hx: Lives alone, (+) [place]: 2 to 3 packs a day from age 9 to 56, NO alcohol, NO illicit drugs Exam: HEENT: NCA, EOMI, PERRLA, NO pharyngeal erythema/exudate, NO cervical/ supraclavicular/submandibular lymphadenopathy, NO thyromegaly Cardio: NS1 and NS2, NO M/R/G (please note that this is limited by distant heart sounds) Resp: Bibasilar Faint Inspiratory Crackles GI: BSx4, Soft, NT, ND, NO HSM, NO guarding/rebound tenderness Ext: Bilateral light puple discoloration of the toes of feet (chronic in nature S/P podiatry surgery): capillary refill is 2 to 3 seconds, sensation is intact, NO edema, Bilateral UE Pulses are stronger than Bilateral LE Pulses Neuro: CN II through XII are grossly intact Skin: NO sacral/li prominence ulcers 1. Right Pulmonary Mass CT of Chest 01/14/17 :Ill-defined right upper lobe - suprahilar mass density which exhibits spiculated borders and abuts the right aspect of the mediastinum as well as along its posterior inferior border the bronchus intermedius which is compressed. Upper lobe this lesion may represent a primary tumor. There also appears to be early postobstructive changes right upper lobe. Bronchoscopy was performed by Dr. Sidhu and this showed a clot obstructing the airway. 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 Emeterio Jean has been consulted for further recommendations 2. Hx Syncope likely secondary to Hypovolemia, CVA ruled out Pt was anemic on admission hgb 8.6 CT Head was negative MRI of brain without contrast did not show and acute bleed or infarct Carotid Ultrasound did not show any significant stenosis Doppler US of the LE did not show any DVTs PT/OT in TCU 3. Hx Left Wrist Fracture secondary to Fall Left Wrist X Ray showed a non displaced fracture Hip Xray did not show any fracture CT of Head did not fracture nor bleed Hand Surgeon Dr. Hernandez was consulted and he recommended wrist splint and follow up with him as outpatient 4. Anemia likely secondary to Chronic disease Anemia work up showed low iron levels Hx of transfusion of 1 unit PRBC for Hgb 7.6 now stable HgB/Hct at 8.7/27.1 Received 3 doses of Venofer Ferrous Sulfate 325 mg PO 2x/day 5. Hx Rhabdomyolysis Treated with IVF CK upon admission was 1157 and came down to 141 6. Hx Dehydration Received IVF Resolved 7. Hx Depression Cymbalta 30 mg and 20 mg PO 1x/day 8. DVT prophylaxis Lovenox 40 mg SC 1x/day Protonix 40 mg PO 1x/day Colace 100 mg PO 2x/day (added for lack of bowel movement) Albuterol 2.5 mg INH Q4H SOB Present on Admission - Present on Admission Any Indicators Present on Admission: Yes History of DVT/PE: No History of Uncontrolled Diabetes: No Urinary Catheter: No Decubitus Ulcer Present: No Review of Systems - Review of Systems Review of Systems: Please see HPI above Past Patient History - Past Medical History & Family History Past Medical History?: Yes Pertinent Family History: Please see HPI above - Past Social History Smoking Status: Former Smoker - CARDIAC Hx Cardiac Disorders: No - PULMONARY Hx Pneumonia: Yes Other/Comment: bloody sputum for the last 6 months - NEUROLOGICAL HX Cerebrovascular Accident: Yes - HEENT Hx HEENT Problems: No - RENAL Hx Chronic Kidney Disease: No - ENDOCRINE/METABOLIC Hx Endocrine Disorders: No - HEMATOLOGICAL/ONCOLOGICAL Hx Anemia: Yes - INTEGUMENTARY Hx Dermatological Problems: No - MUSCULOSKELETAL/RHEUMATOLOGICAL Hx Falls: Yes - GASTROINTESTINAL Hx Gastrointestinal Disorders: No - GENITOURINARY/GYNECOLOGICAL Hx Genitourinary Disorders: No - PSYCHIATRIC Hx Psychophysiologic Disorder: No Hx Substance Use: No - SURGICAL HISTORY Hx Surgeries: No - ANESTHESIA Hx Anesthesia: No Meds Allergies/Adverse Reactions: Allergies Allergy/AdvReac Type Severity Reaction Status Date / Time Penicillins Allergy RASH Verified 11/25/16 14:28 Sulfa (Sulfonamide Allergy RASH Verified 11/25/16 14:28 Antibiotics) Results - Vital Signs Recent Vital Signs: Last Vital Signs Temp 98.4 F 01/20/17 07:57 Pulse 88 01/20/17 07:57 Resp 20 01/20/17 07:57 BP 137/75 01/20/17 07:57 Pulse Ox 99 01/20/17 07:57 Decision To Admit - Pt Status Changed To: Hospital Disposition Of: Inpatient - Admit Certification Admit to Inpatient:: After my assessment, the patient will require hospitalization for at least two midnights. This is because of the severity of symptoms shown, intensity of services needed, and/or the medical risk in this patient being treated as an outpatient. - . Bed Request Type: Transitional Care Unit Admitting Physician: Jody Lamar
[2017-01-20] MEDS ORDERED: Iohexol 240 (50 ml) PO ONE (12:14)
--- NOTE | 2017-01-20 13:27 | CP.PCM.CON ---
History of Present Illness - History of Present Illness History of Present Illness: This 86 year old female was initially seen on the telemetry unit where she was admitted with Syncope, rhabdomyolysis, hemoptysis. She is a former heavy cigarette smoker and has been having a cough which was described as 'bloody' for a few months. She did not have fever or chills, but did admit to some degree of dyspnea on exertion. A suprahilar mass was found on x-ray and CT scanning with some volume loss in the right upper lobe suggesting possible airway obstruction and post-obstructive pneumonia. She underwent flexible bronchoscopy which revealed a completely obstructed RUL division with clotted blood which prevented further advancing the scope. There was bleeding encountered whenever the clot was disturbed and as much material as could safely be removed was sent to the lab for examination. 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 She has been advised of the findings and further test have been requested. She continues to have hemoptysis which has lessened in quantity as the effects of ASA and clopidogrel wear off. Review of Systems - Review of Systems All systems: reviewed and no additional remarkable complaints except - EENT Nose/Mouth/Throat: Change in Voice - Neurological Neurological: Syncope - Hematologic/Lymphatic Hematologic: As Per HPI (hemoptysis) Past Patient History - Past Medical History & Family History Past Medical History?: Yes - Past Social History Smoking Status: Former Smoker Chewing Tobacco Use: No Cigar Use: No Alcohol: Social Drugs: Denies Home Situation {Lives}: Alone - CARDIAC Hx Cardiac Disorders: No - PULMONARY Hx Lung Cancer: Yes (current admission) Hx Pneumonia: Yes Other/Comment: bloody sputum for the last 6 months - NEUROLOGICAL HX Cerebrovascular Accident: Yes - HEENT Other/Comment: mild voice change, hoarseness - RENAL Hx Chronic Kidney Disease: No Other/Comment: JOHANNA with recent rhabdo, recovered function quickly. - ENDOCRINE/METABOLIC Hx Endocrine Disorders: No - HEMATOLOGICAL/ONCOLOGICAL Hx Anemia: Yes - INTEGUMENTARY Hx Dermatological Problems: No - MUSCULOSKELETAL/RHEUMATOLOGICAL Hx Falls: Yes Hx Fractures: Yes (recent non-dislaced left wrist fracture.) - GASTROINTESTINAL Hx Gastrointestinal Disorders: No - GENITOURINARY/GYNECOLOGICAL Hx Genitourinary Disorders: No - PSYCHIATRIC Hx Psychophysiologic Disorder: No Hx Substance Use: No - SURGICAL HISTORY Hx Surgeries: No - ANESTHESIA Hx Anesthesia: No Meds Allergies/Adverse Reactions: Allergies Allergy/AdvReac Type Severity Reaction Status Date / Time Penicillins Allergy RASH Verified 11/25/16 14:28 Sulfa (Sulfonamide Allergy RASH Verified 11/25/16 14:28 Antibiotics) - Medications Medications: Current Medications Albuterol Sulfate (Albuterol 0.083% Inhal Jane (2.5 Mg/3 Ml) Ud) 2.5 mg INH RQ4 PRN PRN Reason: Shortness of Breath Docusate Sodium (Colace) 100 mg PO BID [facility] Duloxetine HCl (Cymbalta) 20 mg PO DAILY [facility] Last Admin: 01/20/17 09:06 Dose: 20 mg Duloxetine HCl (Cymbalta) 30 mg PO DAILY [facility] Last Admin: 01/20/17 09:06 Dose: 30 mg Enoxaparin Sodium (Lovenox) 40 mg SC DAILY [facility] PRN Reason: Protocol Last Admin: 01/20/17 09:07 Dose: 40 mg Ferrous Sulfate (Feosol) 325 mg PO BID [facility] Last Admin: 01/20/17 09:07 Dose: 325 mg Physical Exam - Additional Findings Additional findings: Thin, elderly female in no acute distress. Alert and cooperative, memory intact.Pharynx is pink and moist w/o exudate. Nares are patent bilaterally w/o bleeding. Conjunctivae are pale w/o scleral icterus. Neck is supple with midline trachea. No JVD or carotid bruit. Carotid upstroke is blunted bilaterally, no palpable thyromegaly. No cervical, supraclavicular or axillary adenopathy. Equal chest expansion, normal VTF, no dullness on percussion. Breath sounds are diminished bilaterally w/o audible wheezes or bronchial breath sounds. Rare dry basal rales posteriorly, occasioanl rhonchi, no rub or egophony. Heart sounds are distant, rhythm is regular, CHUCKY at base. Abdomen is soft and non-tender with + BS. No dependant edema of the LE's, no calf tenderness, no cyanosis. Results - Vital Signs Recent Vital Signs: Last Vital Signs Temp 98.4 F 01/20/17 07:57 Pulse 88 01/20/17 07:57 Resp 20 01/20/17 07:57 BP 137/75 01/20/17 07:57 Pulse Ox 99 01/20/17 07:57 Assessment & Plan (1) Lung cancer, upper lobe Status: Acute Priority: High (2) Anemia Status: Acute Priority: High (3) Cough with hemoptysis Status: Chronic Priority: High - Assessment and Plan (Free Text) Plan: CT abdomen and pelvis as well as MRI of brain requested. Pulmonary function testing if she were to be a surgical candidate. - Date & Time Date: 01/20/17 Time: 13:36
[2017-01-20] MEDS: Pantoprazole 40 mg EC Tab PO SCH (18:39)
--- NOTE | 2017-01-21 05:13 | CP.PCM.CON ---
History of Present Illness - History of Present Illness History of Present Illness: 86 year old female with a history of anemia, admitted s/p fall, recently diagnosed with lung carcinoma, admitted to TCU. The patient notes to slight confusion which led to her having a dizzy spell and falling. She was down for several days but was eventually able to call for help. She has had diminished appetite for several weeks and may have lost weight. A CT scan of the chest revealed a right sided suprahilar mass and she underwent bronchoscopy. Pathology from her bronchoscopy returned carcinoma. Further analysis is being performed on her pathology. Past medical history: Anemia Past surgical history: None Family history: Several family members with unknown malignancy Social history: Former 2ppd x 40 years, denies alcohol and illicit drug use. Allergies: Penicillins, Sulfa Review of systems: All remaining review of systems including HEENT, cardiovascular, respiratory, gastrointestinal, genitourinary, musculoskeletal, dermatologic, neurologic, and psychiatric are negative unless mentioned in the HPI. Past Patient History - Past Medical History & Family History Past Medical History?: Yes - Past Social History Smoking Status: Former Smoker - CARDIAC Hx Cardiac Disorders: No - PULMONARY Hx Pneumonia: Yes Other/Comment: bloody sputum for the last 6 months - NEUROLOGICAL HX Cerebrovascular Accident: Yes - HEENT Hx HEENT Problems: No - RENAL Hx Chronic Kidney Disease: No - ENDOCRINE/METABOLIC Hx Endocrine Disorders: No - HEMATOLOGICAL/ONCOLOGICAL Hx Anemia: Yes - INTEGUMENTARY Hx Dermatological Problems: No - MUSCULOSKELETAL/RHEUMATOLOGICAL Hx Falls: Yes - GASTROINTESTINAL Hx Gastrointestinal Disorders: No - GENITOURINARY/GYNECOLOGICAL Hx Genitourinary Disorders: No - PSYCHIATRIC Hx Psychophysiologic Disorder: No Hx Substance Use: No - SURGICAL HISTORY Hx Surgeries: No - ANESTHESIA Hx Anesthesia: No Meds Allergies/Adverse Reactions: Allergies Allergy/AdvReac Type Severity Reaction Status Date / Time Penicillins Allergy RASH Verified 11/25/16 14:28 Sulfa (Sulfonamide Allergy RASH Verified 11/25/16 14:28 Antibiotics) - Medications Medications: Current Medications Albuterol Sulfate (Albuterol 0.083% Inhal Jane (2.5 Mg/3 Ml) Ud) 2.5 mg INH RQ4 PRN PRN Reason: Shortness of Breath Docusate Sodium (Colace) 100 mg PO BID [facility] Last Admin: 01/20/17 18:39 Dose: 100 mg Duloxetine HCl (Cymbalta) 20 mg PO DAILY [facility] Last Admin: 01/20/17 09:06 Dose: 20 mg Duloxetine HCl (Cymbalta) 30 mg PO DAILY [facility] Last Admin: 01/20/17 09:06 Dose: 30 mg Enoxaparin Sodium (Lovenox) 40 mg SC DAILY [facility] PRN Reason: Protocol Last Admin: 01/20/17 09:07 Dose: 40 mg Ferrous Sulfate (Feosol) 325 mg PO BID [facility] Last Admin: 01/20/17 18:41 Dose: 325 mg Pantoprazole Sodium (Protonix Ec Tab) 40 mg PO DAILY [facility] Last Admin: 01/20/17 18:39 Dose: 40 mg Physical Exam - Head Exam Head Exam: ATRAUMATIC - Eye Exam Eye Exam: Normal appearance - ENT Exam ENT Exam: Mucous Membranes Dry - Respiratory Exam Respiratory Exam: NORMAL BREATHING PATTERN - Cardiovascular Exam Cardiovascular Exam: +S1, +S2 - GI/Abdominal Exam GI & Abdominal Exam: Normal Bowel Sounds - Extremities Exam Extremities exam: Positive for: pedal edema - Neurological Exam Neurological exam: Oriented x3 - Psychiatric Exam Psychiatric exam: Normal Affect, Normal Mood - Skin Skin Exam: Warm Results - Vital Signs Recent Vital Signs: Last Vital Signs Temp 98.6 F 01/20/17 19:40 Pulse 93 H 01/20/17 19:40 Resp 20 01/20/17 19:40 BP 114/68 01/20/17 19:40 Pulse Ox 79 L 01/20/17 19:40 - Labs Result Diagrams: 01/21/17 10:00 01/21/17 10:00 Assessment & Plan (1) Lung cancer, upper lobe Assessment and Plan: no evidence of distant mets by CT A/P awaiting MRI brain results discussed diagnosis with the patient. She has a son who she will plan to make aware of her diagnosis. I offered to call him but she wishes to tell him herself Further treatment recommendations based on staging Status: Acute Priority: High (2) Anemia Assessment and Plan: borderline iron stores s/p PRBC transfusion and parenteral iron Thank you for this interesting consult. Status: Acute Priority: High
[2017-01-21] MEDS: Enoxaparin 40 mg Syringe SC SCH (08:34)
[2017-01-21] MEDS: Pantoprazole 40 mg EC Tab PO SCH (08:34)
[2017-01-21 11:21] LABS: ALB/GLOB RATIO 1.4 (1.0-2.1); ALKALINE PHOSPHATASE 83 U/L (38-126); ALT/SGPT 37 U/L (9-52); AST/SGOT 35 U/L (14-36); BILIRUBIN,TOTAL 0.5 mg/dl (0.2-1.3); BLOOD UREA NITROGEN 9 mg/dl (7-17); CALCIUM 9.8 mg/dL (8.4-10.2); CARBON DIOXIDE 25 mmol/L (22-30); CHLORIDE 96 mmol/L (98-107); GFR AFRICAN-AMERICAN > 60; GLUCOSE,RANDOM 163 mg/dL (65-105); POTASSIUM 4.1 MMOL/L (3.6-5.0); SODIUM 133 mmol/l (132-148); TOTAL PROTEIN 6.8 G/DL (6.3-8.2)
[2017-01-21 11:33] LABS: BASO % 0.5 % (0.0-2.0); EOS # 0.2 K/uL (0.0-0.7); EOS % 2.9 % (0.0-4.0); HEMATOCRIT 30.5 % (34.0-47.0); LYMPH # 0.8 K/uL (1.0-4.3); MEAN CELL VOLUME 78.4 fl (81.0-99.0); MEAN CORPUSCULAR HEMOGLOBIN 24.7 pg (27.0-31.0); MEAN CORPUSCULAR HGB CONC 31.5 g/dL (33.0-37.0); MEAN PLATELET VOLUME 8.2 fl (7.2-11.7); MONO # 0.9 K/uL (0.0-0.8); MONO % 13.4 % (0.0-10.0); NEUT # 4.6 K/uL (1.8-7.0); NEUT % 70.2 % (50.0-75.0); RED CELL DISTRIBUTION WIDTH 19.3 % (11.5-14.5); WHITE BLOOD COUNT 6.5 K/uL (4.8-10.8)
--- NOTE | 2017-01-21 15:49 | CP.PCM.PCO ---
Physician Communication Note - Physician Communication Note Physician Communication Note: CT Abdomen/Pelvis showed NO suspicious findings to suggest Met Disease
[2017-01-22] MEDS: Pantoprazole 40 mg EC Tab PO SCH (08:37)
[2017-01-22] MEDS: Enoxaparin 40 mg Syringe SC SCH (08:38)
[2017-01-22] MEDS ORDERED: Oxycodone/Acetaminophen 5/325 mg Tab PO PRN (19:23)
--- NOTE | 2017-01-22 19:24 | CP.PCM.PCO ---
Physician Communication Note - Physician Communication Note Physician Communication Note: Percocet 1 tab Mild & 2 tab Severe Pain added for Left Wrist Pain
[2017-01-22] MEDS: Oxycodone/Acetaminophen 5/325 mg Tab PO PRN (19:52)
[2017-01-23] MEDS: Pantoprazole 40 mg EC Tab PO SCH (08:11)
[2017-01-23] MEDS: Enoxaparin 40 mg Syringe SC SCH (08:11)
[2017-01-23 09:24] LABS: PARTIAL THROMBOPLASTIN TIME 34.8 Seconds (25.6-37.1)
--- NOTE | 2017-01-23 11:01 | CP.PCM.PN ---
Subjective - Date & Time of Evaluation Date of Evaluation: 01/23/17 Time of Evaluation: 10:52 - Subjective Subjective: Seated in bedside chair. Fells fairly well, but continues to have hemoptysis. Has diagnosis of NSCLC (giant cell) and further testing/staining is in progress. Possibly RT will be necessary to stop the hemoptysis. Objective - Vital Signs/Intake and Output Vital Signs (last 24 hours): Temp Pulse Resp BP Pulse Ox 98.0 F 88 20 136/64 99 01/23/17 08:00 01/23/17 08:00 01/23/17 08:00 01/23/17 08:00 01/23/17 08:00 - Medications Medications: Current Medications Albuterol Sulfate (Albuterol 0.083% Inhal Jane (2.5 Mg/3 Ml) Ud) 2.5 mg INH RQ4 PRN PRN Reason: Shortness of Breath Docusate Sodium (Colace) 100 mg PO BID [facility] Last Admin: 01/23/17 08:10 Dose: 100 mg Duloxetine HCl (Cymbalta) 20 mg PO DAILY [facility] Last Admin: 01/23/17 08:11 Dose: 20 mg Duloxetine HCl (Cymbalta) 30 mg PO DAILY [facility] Last Admin: 01/23/17 08:11 Dose: 30 mg Enoxaparin Sodium (Lovenox) 40 mg SC DAILY [facility] PRN Reason: Protocol Last Admin: 01/23/17 08:11 Dose: 40 mg Ferrous Sulfate (Feosol) 325 mg PO BID [facility] Last Admin: 01/23/17 08:11 Dose: 325 mg Moxifloxacin HCl (Avelox) 400 mg PO DAILY [facility] Oxycodone/Acetaminophen (Percocet 5/325 Mg Tab) 1 tab PO Q6 PRN PRN Reason: Pain, moderate (4-7) Stop: 01/25/17 19:23 Last Admin: 01/22/17 19:52 Dose: 1 tab Oxycodone/Acetaminophen (Percocet 5/325 Mg Tab) 2 tab PO Q6 PRN PRN Reason: Pain, severe (8-10) Stop: 01/25/17 19:24 Pantoprazole Sodium (Protonix Ec Tab) 40 mg PO DAILY [facility] Last Admin: 01/23/17 08:11 Dose: 40 mg - Labs Labs: 01/21/17 10:00 01/21/17 10:00 PT 12.8 Seconds (9.8-13.1) 01/23/17 08:45 INR 1.1 (0.9-1.2) 01/23/17 08:45 APTT 34.8 Seconds (25.6-37.1) 01/23/17 08:45 Assessment and Plan (1) Lung cancer, upper lobe Status: Acute (2) Anemia Status: Acute (3) Cough with hemoptysis Status: Chronic
[2017-01-23] MEDS: Oxycodone/Acetaminophen 5/325 mg Tab PO PRN ×2 (15:03→21:31)
[2017-01-24] MEDS: Pantoprazole 40 mg EC Tab PO SCH (08:57)
[2017-01-24] MEDS: Enoxaparin 40 mg Syringe SC SCH (08:57)
--- NOTE | 2017-01-24 10:26 | CP.PCM.PN ---
Subjective - Date & Time of Evaluation Date of Evaluation: 01/24/17 Time of Evaluation: 10:23 - Subjective Subjective: Case discussed with hospitalist and Dr Jean. Studies for special staining still pending. She continues to have hemoptysis, small in amount (<10ml in 24hrs). Clinically stable w/o chest pain or SOB. Objective - Vital Signs/Intake and Output Vital Signs (last 24 hours): Temp Pulse Resp BP Pulse Ox 97.8 F 84 20 140/70 99 01/24/17 07:55 01/24/17 07:55 01/24/17 07:55 01/24/17 07:55 01/24/17 07:55 - Medications Medications: Current Medications Albuterol Sulfate (Albuterol 0.083% Inhal Jane (2.5 Mg/3 Ml) Ud) 2.5 mg INH RQ4 PRN PRN Reason: Shortness of Breath Docusate Sodium (Colace) 100 mg PO BID [facility] Last Admin: 01/24/17 08:56 Dose: 100 mg Duloxetine HCl (Cymbalta) 20 mg PO DAILY [facility] Last Admin: 01/24/17 08:57 Dose: 20 mg Duloxetine HCl (Cymbalta) 30 mg PO DAILY [facility] Last Admin: 01/24/17 08:56 Dose: 30 mg Enoxaparin Sodium (Lovenox) 40 mg SC DAILY [facility] PRN Reason: Protocol Last Admin: 01/24/17 08:57 Dose: 40 mg Ferrous Sulfate (Feosol) 325 mg PO BID [facility] Last Admin: 01/24/17 08:56 Dose: 325 mg Moxifloxacin HCl (Avelox) 400 mg PO DAILY [facility] Last Admin: 01/24/17 08:57 Dose: 400 mg Oxycodone/Acetaminophen (Percocet 5/325 Mg Tab) 1 tab PO Q6 PRN PRN Reason: Pain, moderate (4-7) Stop: 01/25/17 19:23 Last Admin: 01/23/17 21:31 Dose: 1 tab Oxycodone/Acetaminophen (Percocet 5/325 Mg Tab) 2 tab PO Q6 PRN PRN Reason: Pain, severe (8-10) Stop: 01/25/17 19:24 Pantoprazole Sodium (Protonix Ec Tab) 40 mg PO DAILY [facility] Last Admin: 01/24/17 08:57 Dose: 40 mg - Labs Labs: 01/21/17 10:00 01/21/17 10:00 PT 12.8 Seconds (9.8-13.1) 01/23/17 08:45 INR 1.1 (0.9-1.2) 01/23/17 08:45 APTT 34.8 Seconds (25.6-37.1) 01/23/17 08:45 Assessment and Plan (1) Lung cancer, upper lobe Status: Acute (2) Anemia Status: Acute (3) Cough with hemoptysis Status: Chronic
--- NOTE | 2017-01-24 12:00 | CP.PCM.PN ---
Subjective - Date & Time of Evaluation Date of Evaluation: 01/24/17 Time of Evaluation: 11:58 - Subjective Subjective: patient seen and examined bedside discussed patient's condition and diagnosis at length patient states she would like her son updated "to know everything she knows." discussed with patient's son Dae as well via telephone call. discussed also with Dr. Jean and Dr. Sidhu No other complaints at this time patient did have appx 10 cc hemoptysis, will give mucinex to help sputum production no chest pain no dyspnea vitals are stable no acute distress Objective - Vital Signs/Intake and Output Vital Signs (last 24 hours): Temp Pulse Resp BP Pulse Ox 97.8 F 84 20 140/70 99 01/24/17 07:55 01/24/17 07:55 01/24/17 07:55 01/24/17 07:55 01/24/17 07:55 - Medications Medications: Current Medications Albuterol Sulfate (Albuterol 0.083% Inhal Jane (2.5 Mg/3 Ml) Ud) 2.5 mg INH RQ4 PRN PRN Reason: Shortness of Breath Docusate Sodium (Colace) 100 mg PO BID [facility] Last Admin: 01/24/17 08:56 Dose: 100 mg Duloxetine HCl (Cymbalta) 20 mg PO DAILY [facility] Last Admin: 01/24/17 08:57 Dose: 20 mg Duloxetine HCl (Cymbalta) 30 mg PO DAILY [facility] Last Admin: 01/24/17 08:56 Dose: 30 mg Enoxaparin Sodium (Lovenox) 40 mg SC DAILY [facility] PRN Reason: Protocol Last Admin: 01/24/17 08:57 Dose: 40 mg Ferrous Sulfate (Feosol) 325 mg PO BID [facility] Last Admin: 01/24/17 08:56 Dose: 325 mg Moxifloxacin HCl (Avelox) 400 mg PO DAILY [facility] Last Admin: 01/24/17 08:57 Dose: 400 mg Oxycodone/Acetaminophen (Percocet 5/325 Mg Tab) 1 tab PO Q6 PRN PRN Reason: Pain, moderate (4-7) Stop: 01/25/17 19:23 Last Admin: 01/23/17 21:31 Dose: 1 tab Oxycodone/Acetaminophen (Percocet 5/325 Mg Tab) 2 tab PO Q6 PRN PRN Reason: Pain, severe (8-10) Stop: 01/25/17 19:24 Pantoprazole Sodium (Protonix Ec Tab) 40 mg PO DAILY [facility] Last Admin: 01/24/17 08:57 Dose: 40 mg - Labs Labs: 01/21/17 10:00 01/21/17 10:00 PT 12.8 Seconds (9.8-13.1) 01/23/17 08:45 INR 1.1 (0.9-1.2) 01/23/17 08:45 APTT 34.8 Seconds (25.6-37.1) 01/23/17 08:45 - Constitutional Appears: Non-toxic, No Acute Distress - Head Exam Head Exam: ATRAUMATIC, NORMOCEPHALIC - Eye Exam Eye Exam: EOMI, Normal appearance, PERRL Pupil Exam: NORMAL ACCOMODATION - ENT Exam ENT Exam: Mucous Membranes Moist, Normal Oropharynx - Neck Exam Neck Exam: Full ROM, Normal Inspection - Respiratory Exam Respiratory Exam: Clear to Ausculation Bilateral, NORMAL BREATHING PATTERN - Cardiovascular Exam Cardiovascular Exam: RRR, +S1, +S2 - GI/Abdominal Exam GI & Abdominal Exam: Soft, Normal Bowel Sounds. absent: Tenderness, Organomegaly, Pulsatile Mass - Extremities Exam Extremities Exam: Normal Capillary Refill. absent: Calf Tenderness - Back Exam Back Exam: absent: CVA tenderness (L), CVA tenderness (R) - Neurological Exam Neurological Exam: Alert, Awake, Oriented x3 - Psychiatric Exam Psychiatric exam: Normal Affect, Normal Mood - Skin Skin Exam: Dry, Warm Assessment and Plan - Assessment and Plan (Free Text) Plan: 86 year old female (PMHx Depression) presented to [facility] ER after she was found on the floor at her home. Patient revealed at the time of her admission that she felt faint and fell but was unable to get up after falling. Because of this she remained on the floor for a few days until she was able to crawl to a phone. She was admitted on 01/14/17 for further evaluation and treatment for Syncope, Left Upper Lobe Mass, Rhabdomyolysis, Left Wrist Fracture, Anemia, and Dehydration. She was then discharged to TCU here at [facility] on 01/19/17 for PT/OT and further management. Please see individual Assessment and Plans below for further details. 01/24/17: Discussed with DrsDiaz Moraes. Further immunohistochem and molecular markers were went by pathology Friday January 20, 2017. Discussed with patient and family. Once path results confirmed, patient will decide what option of therapy or non-therapy she wishes to choose. 1. Right Pulmonary Mass CT of Chest 01/14/17 :Ill-defined right upper lobe - suprahilar mass density which exhibits spiculated borders and abuts the right aspect of the mediastinum as well as along its posterior inferior border the bronchus intermedius which is compressed. Upper lobe this lesion may represent a primary tumor. There also appears to be early postobstructive changes right upper lobe. Bronchoscopy was performed by Dr. Sidhu and this showed a clot obstructing the airway. 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 Patient and son have both been made aware of results. Hematology/Oncology Dr. Emeterio Jean has been consulted for further recommendations. 01/24/17 - still awaiting further immunohistochem studies and molecular markers. 2. Hx Syncope likely secondary to Hypovolemia, CVA ruled out Pt was anemic on admission hgb 8.6 CT Head was negative MRI of brain without contrast did not show and acute bleed or infarct Carotid Ultrasound did not show any significant stenosis Doppler US of the LE did not show any DVTs PT/OT in TCU 3. Hx Left Wrist Fracture secondary to Fall Left Wrist X Ray showed a non displaced fracture Hip Xray did not show any fracture CT of Head did not fracture nor bleed Hand Surgeon Dr. Hernandez was consulted and he recommended wrist splint and follow up with him as outpatient REPEAT wrist XR today, patient states she has worsening swelling and pain. 4. Anemia likely secondary to Chronic disease Anemia work up showed low iron levels Hx of transfusion of 1 unit PRBC for Hgb 7.6 now stable HgB/Hct at 8.7/27.1 Received 3 doses of Venofer Ferrous Sulfate 325 mg PO 2x/day 5. Hx Rhabdomyolysis Treated with IVF CK upon admission was 1157 and came down to 141 6. Hx Dehydration Received IVF Resolved 7. Hx Depression Cymbalta 30 mg and 20 mg PO 1x/day 8. DVT prophylaxis Lovenox 40 mg SC 1x/day Protonix 40 mg PO 1x/day Colace 100 mg PO 2x/day (added for lack of bowel movement) Albuterol 2.5 mg INH Q4H SOB
--- NOTE | 2017-01-24 15:22 | RAD ---
PROCEDURE: Left Wrist Radiographs. HISTORY: wrist fracture, worsening? COMPARISON: 01/15/2017 FINDINGS: BONES: Bony detail obscured by splint particularly in the frontal projection. Once again, note is made of comminuted, intra-articular nondisplaced distal radial fracture with mild impaction. There has been no change in alignment of the fracture fragments when compared to the prior examination. There is no other fracture identified. JOINTS: Normal carpal alignment is maintained. Radiocarpal osteoarthritis is noted. Chondrocalcinosis is noted in the triangular fibrocartilage. SOFT TISSUES: Normal. OTHER FINDINGS: None. IMPRESSION: Comminuted intra-articular mildly impacted distal radial fracture unchanged in alignment compared to 01/07.
--- NOTE | 2017-01-24 18:52 | CP.PCM.PN ---
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 Objective - Vital Signs/Intake and Output Vital Signs (last 24 hours): Temp Pulse Resp BP Pulse Ox 97.9 F 85 20 129/56 L 95 01/24/17 16:26 01/24/17 16:26 01/24/17 16:26 01/24/17 16:26 01/24/17 16:26 - Medications Medications: Current Medications Albuterol Sulfate (Albuterol 0.083% Inhal Jane (2.5 Mg/3 Ml) Ud) 2.5 mg INH RQ4 PRN PRN Reason: Shortness of Breath Docusate Sodium (Colace) 100 mg PO BID [facility] Last Admin: 01/24/17 16:36 Dose: 100 mg Duloxetine HCl (Cymbalta) 20 mg PO DAILY [facility] Last Admin: 01/24/17 08:57 Dose: 20 mg Duloxetine HCl (Cymbalta) 30 mg PO DAILY [facility] Last Admin: 01/24/17 08:56 Dose: 30 mg Enoxaparin Sodium (Lovenox) 40 mg SC DAILY [facility] PRN Reason: Protocol Last Admin: 01/24/17 08:57 Dose: 40 mg Ferrous Sulfate (Feosol) 325 mg PO BID [facility] Last Admin: 01/24/17 16:36 Dose: 325 mg Moxifloxacin HCl (Avelox) 400 mg PO DAILY [facility] Last Admin: 01/24/17 08:57 Dose: 400 mg Oxycodone/Acetaminophen (Percocet 5/325 Mg Tab) 1 tab PO Q6 PRN PRN Reason: Pain, moderate (4-7) Stop: 01/25/17 19:23 Last Admin: 01/23/17 21:31 Dose: 1 tab Oxycodone/Acetaminophen (Percocet 5/325 Mg Tab) 2 tab PO Q6 PRN PRN Reason: Pain, severe (8-10) Stop: 01/25/17 19:24 Pantoprazole Sodium (Protonix Ec Tab) 40 mg PO DAILY [facility] Last Admin: 01/24/17 08:57 Dose: 40 mg - Labs Labs: 01/21/17 10:00 01/21/17 10:00 PT 12.8 Seconds (9.8-13.1) 01/23/17 08:45 INR 1.1 (0.9-1.2) 01/23/17 08:45 APTT 34.8 Seconds (25.6-37.1) 01/23/17 08:45 - Head Exam Head Exam: ATRAUMATIC - Eye Exam Eye Exam: Normal appearance - ENT Exam ENT Exam: Mucous Membranes Dry - Respiratory Exam Respiratory Exam: NORMAL BREATHING PATTERN - Cardiovascular Exam Cardiovascular Exam: +S1, +S2 - GI/Abdominal Exam GI & Abdominal Exam: Normal Bowel Sounds - Extremities Exam Extremities Exam: Normal Inspection Assessment and Plan (1) Lung cancer, upper lobe Assessment & Plan: imaging does not suggest distant metastasis pt does have ipsilateral mediastinal involvement possible palliative radiotherapy for palliation of hemoptysis Status: Acute (2) Anemia Assessment & Plan: borderline iron stores s/p parenteral iron Status: Acute
[2017-01-24] MEDS: Oxycodone/Acetaminophen 5/325 mg Tab PO PRN (21:56)
[2017-01-25] MEDS: Pantoprazole 40 mg EC Tab PO SCH (08:24)
[2017-01-25] MEDS: Enoxaparin 40 mg Syringe SC SCH (08:25)
[2017-01-26] MEDS: Pantoprazole 40 mg EC Tab PO SCH (08:38)
[2017-01-26] MEDS: Enoxaparin 40 mg Syringe SC SCH (08:38)
--- NOTE | 2017-01-26 10:30 | CP.PCM.PN ---
Subjective - Date & Time of Evaluation Date of Evaluation: 01/26/17 Time of Evaluation: 10:15 - Subjective Subjective: Hospitalist Progress Note (patient was seen and examined at 10:15 AM 01/20/17 in the Physical Therapy Room) 86 year old female (PMHx Depression) presented to [facility] ER after she was found on the floor at her home. Patient revealed at the time of her admission that she felt faint and fell but was unable to get up after falling. Because of this she remained on the floor for a few days until she was able to crawl to a phone. She was admitted on 01/14/17 for further evaluation and treatment for Syncope, Left Upper Lobe Mass, Rhabdomyolysis, Left Wrist Fracture, Anemia, and Dehydration. She was then discharged to TCU here at [facility] on 01/19/17 for PT/OT and further management. Please see individual Assessment and Plans below for further details. ROS: Blurriness of vision while trying to read since admission: she has her son's reading glasses and these seem to help a little Left Hip Pain since fall: worse after PT but states she does not require pain medication Had a normal (Not black/not bloody) bowel movement yesterday 01/25/17 Numbness that comes and goes bilateral toes (chronic) especially with activity Cough with occasional production of blood tinged sputum is still present [place]/parietal Headache that comes and goes NO other complaints upon FULL ROS Exam: HEENT: NCA, EOMI, PERRLA, NO pharyngeal erythema/exudate, NO cervical/ supraclavicular/submandibular lymphadenopathy, NO thyromegaly Cardio: NS1 and NS2, NO M/R/G (please note that this is limited by distant heart sounds) Resp: Bibasilar Faint Inspiratory Crackles are not present during today's exam GI: BSx4, Soft, NT, ND, NO HSM, NO guarding/rebound tenderness Ext: Bilateral light puple discoloration of the toes of feet (chronic in nature S/P podiatry surgery): capillary refill is 2 to 3 seconds, sensation is intact, NO edema, Bilateral UE Pulses are stronger than Bilateral LE Pulses Neuro: CN II through XII are grossly intact 1. Right Pulmonary Mass CT of Chest 01/14/17 :Ill-defined right upper lobe - suprahilar mass density which exhibits spiculated borders and abuts the right aspect of the mediastinum as well as along its posterior inferior border the bronchus intermedius which is compressed. Upper lobe this lesion may represent a primary tumor. There also appears to be early postobstructive changes right upper lobe. Bronchoscopy was performed by Dr. Sidhu and this showed a clot obstructing the airway. 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 Patient and son have both been made aware of results. Hematology/Oncology Dr. Emeterio Jean has recommended palliative radiation for the continued Hemoptysis. Patient is still undecided with the Radiation at this time. 2. Hx Syncope likely secondary to Hypovolemia, CVA ruled out Pt was anemic on admission Hgb 8.6 CT Head was negative MRI of brain without contrast did not show and acute bleed or infarct Carotid Ultrasound did not show any significant stenosis Doppler US of the LE did not show any DVTs PT/OT in TCU 3. Hx Left Wrist Fracture and Left Hip Pain secondary to Fall Left Wrist X Ray showed a non displaced fracture Repeat Left Wrist X Ray 01/24/17 showed comminuted intra-articular impacted distal radial fracture unchanged in alignment Hip Xray did not show any fracture CT of Head did not fracture nor bleed Hand Surgeon Dr. Hernandez was consulted and he recommended wrist splint and follow up with him as outpatient Patient is not requiring any narcotic pain medication at this time For the Left Hip Pain, CT Bilateral Hip/Pelvis was ordered but as of 01/26/17, CT Scanner is not functioning and awaiting performance. Tennis Net [employer] Dr. Santana has been consulted for further PT recommendations concerning the continued Left Hip Pain 4. Anemia likely secondary to Chronic disease Anemia work up showed low iron levels Hx of transfusion of 1 unit PRBC for Hgb 7.6 now stable HgB/Hct at 8.7/27.1 Received 3 doses of Venofer Ferrous Sulfate 325 mg PO 2x/day 5. Hx Rhabdomyolysis Treated with IVF CK upon admission was 1157 and came down to 141 6. Hx Dehydration Received IVF Resolved 7. Hx Depression Cymbalta 30 mg and 20 mg PO 1x/day 8. DVT prophylaxis Lovenox 40 mg SC 1x/day Protonix 40 mg PO 1x/day Colace 100 mg PO 2x/day (added for history of lack of bowel movement on 01/21/17) Albuterol 2.5 mg INH Q4H SOB Tylenol 650 mg PO Q6H PRN Headache Please note that patient was placed on Moxifloxicin by [employer] Caprifier Dr. Sidhu as Sputum Culture 01/18/16 showed (+) Enterbactor Objective - Vital Signs/Intake and Output Vital Signs (last 24 hours): Temp Pulse Resp BP Pulse Ox 97.8 F 90 20 144/68 99 01/26/17 08:03 01/26/17 08:03 01/26/17 08:03 01/26/17 08:03 01/26/17 08:03 - Medications Medications: Current Medications Albuterol Sulfate (Albuterol 0.083% Inhal Jane (2.5 Mg/3 Ml) Ud) 2.5 mg INH RQ4 PRN PRN Reason: Shortness of Breath Docusate Sodium (Colace) 100 mg PO BID [facility] Last Admin: 01/26/17 08:37 Dose: 100 mg Duloxetine HCl (Cymbalta) 20 mg PO DAILY [facility] Last Admin: 01/26/17 08:37 Dose: 20 mg Duloxetine HCl (Cymbalta) 30 mg PO DAILY [facility] Last Admin: 01/26/17 08:37 Dose: 30 mg Enoxaparin Sodium (Lovenox) 40 mg SC DAILY [facility] PRN Reason: Protocol Last Admin: 01/26/17 08:38 Dose: 40 mg Ferrous Sulfate (Feosol) 325 mg PO BID [facility] Last Admin: 01/26/17 08:38 Dose: 325 mg Moxifloxacin HCl (Avelox) 400 mg PO DAILY [facility] Last Admin: 01/26/17 08:37 Dose: 400 mg Pantoprazole Sodium (Protonix Ec Tab) 40 mg PO DAILY [facility] Last Admin: 01/26/17 08:38 Dose: 40 mg - Labs Labs: 01/21/17 10:00 01/21/17 10:00 PT 12.8 Seconds (9.8-13.1) 01/23/17 08:45 INR 1.1 (0.9-1.2) 01/23/17 08:45 APTT 34.8 Seconds (25.6-37.1) 01/23/17 08:45
--- NOTE | 2017-01-26 11:17 | CP.PCM.PN ---
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 This would be consistent with her clinical presentation. Objective - Vital Signs/Intake and Output Vital Signs (last 24 hours): Temp Pulse Resp BP Pulse Ox 97.8 F 90 20 144/68 99 01/26/17 08:03 01/26/17 08:03 01/26/17 08:03 01/26/17 08:03 01/26/17 08:03 - Medications Medications: Current Medications Acetaminophen (Tylenol 325mg Tab) 650 mg PO Q6 PRN PRN Reason: Headache Albuterol Sulfate (Albuterol 0.083% Inhal Jane (2.5 Mg/3 Ml) Ud) 2.5 mg INH RQ4 PRN PRN Reason: Shortness of Breath Docusate Sodium (Colace) 100 mg PO BID [facility] Last Admin: 01/26/17 08:37 Dose: 100 mg Duloxetine HCl (Cymbalta) 20 mg PO DAILY [facility] Last Admin: 01/26/17 08:37 Dose: 20 mg Duloxetine HCl (Cymbalta) 30 mg PO DAILY [facility] Last Admin: 01/26/17 08:37 Dose: 30 mg Enoxaparin Sodium (Lovenox) 40 mg SC DAILY [facility] PRN Reason: Protocol Last Admin: 01/26/17 08:38 Dose: 40 mg Ferrous Sulfate (Feosol) 325 mg PO BID [facility] Last Admin: 01/26/17 08:38 Dose: 325 mg Moxifloxacin HCl (Avelox) 400 mg PO DAILY [facility] Last Admin: 01/26/17 08:37 Dose: 400 mg Pantoprazole Sodium (Protonix Ec Tab) 40 mg PO DAILY [facility] Last Admin: 01/26/17 08:38 Dose: 40 mg - Labs Labs: 01/21/17 10:00 01/21/17 10:00 PT 12.8 Seconds (9.8-13.1) 01/23/17 08:45 INR 1.1 (0.9-1.2) 01/23/17 08:45 APTT 34.8 Seconds (25.6-37.1) 01/23/17 08:45 Assessment and Plan (1) Lung cancer, upper lobe Status: Acute (2) Anemia Status: Acute (3) Cough with hemoptysis Status: Chronic
--- NOTE | 2017-01-26 14:23 | CP.PCM.PN ---
Subjective - Date & Time of Evaluation Date of Evaluation: 01/26/17 Time of Evaluation: 12:00 - Subjective Subjective: Continues to have hemoptysis (10cc) Path report noted; squamous cell carcinoma Objective - Vital Signs/Intake and Output Vital Signs (last 24 hours): Temp Pulse Resp BP Pulse Ox 97.8 F 90 20 144/68 99 01/26/17 08:03 01/26/17 08:03 01/26/17 08:03 01/26/17 08:03 01/26/17 08:03 - Medications Medications: Current Medications Acetaminophen (Tylenol 325mg Tab) 650 mg PO Q6 PRN PRN Reason: Headache Albuterol Sulfate (Albuterol 0.083% Inhal Jane (2.5 Mg/3 Ml) Ud) 2.5 mg INH RQ4 PRN PRN Reason: Shortness of Breath Docusate Sodium (Colace) 100 mg PO BID [facility] Last Admin: 01/26/17 08:37 Dose: 100 mg Duloxetine HCl (Cymbalta) 20 mg PO DAILY [facility] Last Admin: 01/26/17 08:37 Dose: 20 mg Duloxetine HCl (Cymbalta) 30 mg PO DAILY [facility] Last Admin: 01/26/17 08:37 Dose: 30 mg Enoxaparin Sodium (Lovenox) 40 mg SC DAILY [facility] PRN Reason: Protocol Last Admin: 01/26/17 08:38 Dose: 40 mg Ferrous Sulfate (Feosol) 325 mg PO BID [facility] Last Admin: 01/26/17 08:38 Dose: 325 mg Moxifloxacin HCl (Avelox) 400 mg PO DAILY [facility] Last Admin: 01/26/17 08:37 Dose: 400 mg Pantoprazole Sodium (Protonix Ec Tab) 40 mg PO DAILY [facility] Last Admin: 01/26/17 08:38 Dose: 40 mg - Labs Labs: 01/21/17 10:00 01/21/17 10:00 PT 12.8 Seconds (9.8-13.1) 01/23/17 08:45 INR 1.1 (0.9-1.2) 01/23/17 08:45 APTT 34.8 Seconds (25.6-37.1) 01/23/17 08:45 - Head Exam Head Exam: ATRAUMATIC - Eye Exam Eye Exam: Normal appearance - ENT Exam ENT Exam: Mucous Membranes Dry - Respiratory Exam Respiratory Exam: NORMAL BREATHING PATTERN - Cardiovascular Exam Cardiovascular Exam: +S1, +S2 - GI/Abdominal Exam GI & Abdominal Exam: Normal Bowel Sounds - Extremities Exam Extremities Exam: Normal Inspection - Neurological Exam Neurological Exam: Oriented x3 - Psychiatric Exam Psychiatric exam: Normal Affect, Normal Mood - Skin Skin Exam: Warm Assessment and Plan (1) Lung cancer, upper lobe Assessment & Plan: squamous cell carcinoma of the lung discussed palliative radiotherapy as an option for continued hemoptysis; she said she would be agreeable to this if her son was in agreement will contact her son today to discuss further Status: Acute (2) Anemia Assessment & Plan: borderline iron stores s/p parenteral iron s/p PRBC transfusion hemoptysis Status: Acute
--- NOTE | 2017-01-26 19:16 | CP.PCM.CON ---
History of Present Illness - History of Present Illness History of Present Illness: Dr Santana PMR consultation on Cari Persaud, born 1930, who has been admitted to the [facility] TCU she was on the floor and could not get up +rhabdo cpk>1000, normalized now left wrist fracture, non-surgical treamtent left hip pain, x-ray normal but CT showed sub acute pelvic fractures on the left also Chest CT 01/14/17 :Ill-defined right upper lobe - suprahilar mass density which exhibits spiculated borders and abuts the right aspect of the mediastinum as well as along its posterior inferior border the bronchus intermedius which is compressed. Upper lobe this lesion may represent a primary tumor. There also appears to be early postobstructive changes right upper lobe. Bronchoscopy was performed by Dr. Sidhu and this showed a clot obstructing the airway. 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 and special stains results are pending She is stable and in no pain at this time Review of Systems - Constitutional Constitutional: absent: Anorexia, Chills - Cardiovascular Cardiovascular: absent: Chest Pain - Respiratory Respiratory: absent: Cough Past Patient History - Past Medical History & Family History Past Medical History?: Yes - Past Social History Smoking Status: Former Smoker - CARDIAC Hx Cardiac Disorders: No - PULMONARY Hx Pneumonia: Yes Other/Comment: bloody sputum for the last 6 months - NEUROLOGICAL HX Cerebrovascular Accident: Yes - HEENT Hx HEENT Problems: No - RENAL Hx Chronic Kidney Disease: No - ENDOCRINE/METABOLIC Hx Endocrine Disorders: No - HEMATOLOGICAL/ONCOLOGICAL Hx Anemia: Yes - INTEGUMENTARY Hx Dermatological Problems: No - MUSCULOSKELETAL/RHEUMATOLOGICAL Hx Falls: Yes - GASTROINTESTINAL Hx Gastrointestinal Disorders: No - GENITOURINARY/GYNECOLOGICAL Hx Genitourinary Disorders: No - PSYCHIATRIC Hx Psychophysiologic Disorder: No Hx Substance Use: No - SURGICAL HISTORY Hx Surgeries: No - ANESTHESIA Hx Anesthesia: No Meds Allergies/Adverse Reactions: Allergies Allergy/AdvReac Type Severity Reaction Status Date / Time Penicillins Allergy RASH Verified 11/25/16 14:28 Sulfa (Sulfonamide Allergy RASH Verified 11/25/16 14:28 Antibiotics) - Medications Medications: Current Medications Acetaminophen (Tylenol 325mg Tab) 650 mg PO Q6 PRN PRN Reason: Headache Albuterol Sulfate (Albuterol 0.083% Inhal Jane (2.5 Mg/3 Ml) Ud) 2.5 mg INH RQ4 PRN PRN Reason: Shortness of Breath Docusate Sodium (Colace) 100 mg PO BID [facility] Last Admin: 01/26/17 16:44 Dose: 100 mg Duloxetine HCl (Cymbalta) 20 mg PO DAILY [facility] Last Admin: 01/26/17 08:37 Dose: 20 mg Duloxetine HCl (Cymbalta) 30 mg PO DAILY [facility] Last Admin: 01/26/17 08:37 Dose: 30 mg Enoxaparin Sodium (Lovenox) 40 mg SC DAILY [facility] PRN Reason: Protocol Last Admin: 01/26/17 08:38 Dose: 40 mg Ferrous Sulfate (Feosol) 325 mg PO BID [facility] Last Admin: 01/26/17 16:45 Dose: 325 mg Moxifloxacin HCl (Avelox) 400 mg PO DAILY [facility] Last Admin: 01/26/17 08:37 Dose: 400 mg Pantoprazole Sodium (Protonix Ec Tab) 40 mg PO DAILY [facility] Last Admin: 01/26/17 08:38 Dose: 40 mg Physical Exam - Constitutional Appears: Non-toxic, No Acute Distress - Head Exam Head Exam: ATRAUMATIC, NORMAL INSPECTION, NORMOCEPHALIC - Eye Exam Eye Exam: EOMI - ENT Exam ENT Exam: Mucous Membranes Moist - Respiratory Exam Respiratory Exam: NORMAL BREATHING PATTERN - Cardiovascular Exam Cardiovascular Exam: REGULAR RHYTHM - GI/Abdominal Exam GI & Abdominal Exam: absent: Distended Results - Vital Signs Recent Vital Signs: Last Vital Signs Temp 98.2 F 01/26/17 16:13 Pulse 87 01/26/17 16:13 Resp 20 01/26/17 16:13 BP 100/52 L 01/26/17 16:13 Pulse Ox 97 01/26/17 16:13 - Labs Result Diagrams: 01/21/17 10:00 01/21/17 10:00 Assessment & Plan - Assessment and Plan (Free Text) Assessment: left wrist and hip pain left wrist fracture, non-surgical tx left pelvic fractures on CT, sub-acute. ortho follow up lung CA oncology PT/OT for functional gains
--- NOTE | 2017-01-27 07:04 | CP.PCM.PCO ---
Physician Communication Note - Physician Communication Note Physician Communication Note: Results of CT of pelvis and hips
[2017-01-27 08:19] LABS: BASO # 0.1 K/uL (0.0-0.2); BASO % 0.8 % (0.0-2.0); EOS # 0.2 K/uL (0.0-0.7); EOS % 2.9 % (0.0-4.0); HEMATOCRIT 30.6 % (34.0-47.0); LYMPH # 1.3 K/uL (1.0-4.3); LYMPH % 18.1 % (20.0-40.0); MEAN CELL VOLUME 79.2 fl (81.0-99.0); MEAN CORPUSCULAR HEMOGLOBIN 25.3 pg (27.0-31.0); MEAN PLATELET VOLUME 7.8 fl (7.2-11.7); MONO # 0.8 K/uL (0.0-0.8); MONO % 11.6 % (0.0-10.0); NEUT # 4.6 K/uL (1.8-7.0); NEUT % 66.6 % (50.0-75.0); RED CELL DISTRIBUTION WIDTH 21.9 % (11.5-14.5)
[2017-01-27 08:25] LABS: BLOOD UREA NITROGEN 13 mg/dl (7-17); CALCIUM 9.3 mg/dL (8.4-10.2); CARBON DIOXIDE 26 mmol/L (22-30); CHLORIDE 95 mmol/L (98-107); GFR AFRICAN-AMERICAN > 60; GLUCOSE,RANDOM 115 mg/dL (65-105); POTASSIUM 4.2 MMOL/L (3.6-5.0); SODIUM 129 mmol/l (132-148)
[2017-01-27] MEDS: Pantoprazole 40 mg EC Tab PO SCH (09:02)
[2017-01-27] MEDS: Enoxaparin 40 mg Syringe SC SCH (09:02)
--- NOTE | 2017-01-27 13:51 | CP.PCM.PCO ---
Physician Communication Note - Physician Communication Note Physician Communication Note: Please see above
--- NOTE | 2017-01-27 14:07 | CP.PCM.PN ---
Subjective - Date & Time of Evaluation Date of Evaluation: 01/27/17 Time of Evaluation: 14:07 - Subjective Subjective: Agree with the aforementioned plans for radiation therapy as the patient continues to have hemoptysis. Objective - Vital Signs/Intake and Output Vital Signs (last 24 hours): Temp Pulse Resp BP Pulse Ox 98.1 F 84 20 127/61 98 01/27/17 08:10 01/27/17 08:10 01/27/17 08:10 01/27/17 08:10 01/27/17 08:10 - Medications Medications: Current Medications Acetaminophen (Tylenol 325mg Tab) 650 mg PO Q6 PRN PRN Reason: Headache Albuterol Sulfate (Albuterol 0.083% Inhal Jane (2.5 Mg/3 Ml) Ud) 2.5 mg INH RQ4 PRN PRN Reason: Shortness of Breath Docusate Sodium (Colace) 100 mg PO BID [facility] Last Admin: 01/27/17 09:01 Dose: 100 mg Duloxetine HCl (Cymbalta) 20 mg PO DAILY [facility] Last Admin: 01/27/17 09:02 Dose: 20 mg Duloxetine HCl (Cymbalta) 30 mg PO DAILY [facility] Last Admin: 01/27/17 09:02 Dose: 30 mg Enoxaparin Sodium (Lovenox) 40 mg SC DAILY [facility] PRN Reason: Protocol Last Admin: 01/27/17 09:02 Dose: 40 mg Ferrous Sulfate (Feosol) 325 mg PO BID [facility] Last Admin: 01/27/17 09:02 Dose: 325 mg Pantoprazole Sodium (Protonix Ec Tab) 40 mg PO DAILY [facility] Last Admin: 01/27/17 09:02 Dose: 40 mg - Labs Labs: 01/27/17 08:00 01/27/17 08:00 PT 12.8 Seconds (9.8-13.1) 01/23/17 08:45 INR 1.1 (0.9-1.2) 01/23/17 08:45 APTT 34.8 Seconds (25.6-37.1) 01/23/17 08:45 Assessment and Plan (1) Lung cancer, upper lobe Status: Acute (2) Anemia Status: Acute (3) Cough with hemoptysis Status: Chronic
[2017-01-28] MEDS: Enoxaparin 40 mg Syringe SC SCH (09:16)
[2017-01-28] MEDS: Pantoprazole 40 mg EC Tab PO SCH (09:17)
--- NOTE | 2017-01-28 11:04 | CP.PCM.PCO ---
Physician Communication Note - Physician Communication Note Physician Communication Note: Please see above
[2017-01-28] MEDS: Saccharomyces Boulardi 250 mg Cap PO SCH (16:26)
[2017-01-29] MEDS: Pantoprazole 40 mg EC Tab PO SCH (08:50)
[2017-01-29] MEDS: Saccharomyces Boulardi 250 mg Cap PO SCH ×2 (08:50→17:06)
[2017-01-29] MEDS: Enoxaparin 40 mg Syringe SC SCH (08:51)
[2017-01-30] MEDS: Saccharomyces Boulardi 250 mg Cap PO SCH ×2 (08:28→17:31)
[2017-01-30] MEDS: Pantoprazole 40 mg EC Tab PO SCH (08:29)
--- NOTE | 2017-01-30 09:52 | CP.PCM.PN ---
Subjective - Date & Time of Evaluation Date of Evaluation: 01/30/17 Time of Evaluation: 08:00 - Subjective Subjective: Still has some hemoptysis daily Case discussed with rad onc at [place]; for palliative radiotherapy Objective - Vital Signs/Intake and Output Vital Signs (last 24 hours): Temp Pulse Resp BP Pulse Ox 97.8 F 91 H 20 138/64 99 01/30/17 07:35 01/30/17 07:35 01/30/17 07:35 01/30/17 07:35 01/30/17 07:35 - Medications Medications: Current Medications Acetaminophen (Tylenol 325mg Tab) 650 mg PO Q6 PRN PRN Reason: Headache Albuterol Sulfate (Albuterol 0.083% Inhal Jane (2.5 Mg/3 Ml) Ud) 2.5 mg INH RQ4 PRN PRN Reason: Shortness of Breath Docusate Sodium (Colace) 100 mg PO BID [facility] Last Admin: 01/30/17 08:28 Dose: 100 mg Duloxetine HCl (Cymbalta) 20 mg PO DAILY [facility] Last Admin: 01/30/17 08:28 Dose: 20 mg Duloxetine HCl (Cymbalta) 30 mg PO DAILY [facility] Last Admin: 01/30/17 08:28 Dose: 30 mg Ferrous Sulfate (Feosol) 325 mg PO BID [facility] Last Admin: 01/30/17 08:28 Dose: 325 mg Moxifloxacin HCl (Avelox) 400 mg PO DAILY [facility] Stop: 01/30/17 15:00 Last Admin: 01/30/17 08:28 Dose: 400 mg Pantoprazole Sodium (Protonix Ec Tab) 40 mg PO DAILY [facility] Last Admin: 01/30/17 08:29 Dose: 40 mg Saccharomyces Boulardii (Florastor) 250 mg PO BID [facility] Last Admin: 01/30/17 08:28 Dose: 250 mg - Labs Labs: 01/27/17 08:00 01/27/17 08:00 PT 12.8 Seconds (9.8-13.1) 01/23/17 08:45 INR 1.1 (0.9-1.2) 01/23/17 08:45 APTT 34.8 Seconds (25.6-37.1) 01/23/17 08:45 - Head Exam Head Exam: ATRAUMATIC - Eye Exam Eye Exam: Normal appearance - ENT Exam ENT Exam: Mucous Membranes Dry - Respiratory Exam Respiratory Exam: NORMAL BREATHING PATTERN - Cardiovascular Exam Cardiovascular Exam: +S1, +S2 - GI/Abdominal Exam GI & Abdominal Exam: Normal Bowel Sounds - Extremities Exam Extremities Exam: Normal Inspection Assessment and Plan (1) Lung cancer, upper lobe Assessment & Plan: given continued daily hemoptysis, the patient will have palliative radiotherapy at [place] case discussed with rad onc at [place] Status: Acute (2) Anemia Assessment & Plan: chronic disease, hemoptysis Status: Acute
--- NOTE | 2017-01-30 10:22 | CP.PCM.PN ---
Subjective - Date & Time of Evaluation Date of Evaluation: 01/30/17 Time of Evaluation: 10:21 - Subjective Subjective: Still having dark colored hemoptysis. For RT measurements and simulation today. Objective - Vital Signs/Intake and Output Vital Signs (last 24 hours): Temp Pulse Resp BP Pulse Ox 97.8 F 91 H 20 138/64 99 01/30/17 07:35 01/30/17 07:35 01/30/17 07:35 01/30/17 07:35 01/30/17 07:35 - Medications Medications: Current Medications Acetaminophen (Tylenol 325mg Tab) 650 mg PO Q6 PRN PRN Reason: Headache Albuterol Sulfate (Albuterol 0.083% Inhal Jane (2.5 Mg/3 Ml) Ud) 2.5 mg INH RQ4 PRN PRN Reason: Shortness of Breath Docusate Sodium (Colace) 100 mg PO BID [facility] Last Admin: 01/30/17 08:28 Dose: 100 mg Duloxetine HCl (Cymbalta) 20 mg PO DAILY [facility] Last Admin: 01/30/17 08:28 Dose: 20 mg Duloxetine HCl (Cymbalta) 30 mg PO DAILY [facility] Last Admin: 01/30/17 08:28 Dose: 30 mg Ferrous Sulfate (Feosol) 325 mg PO BID [facility] Last Admin: 01/30/17 08:28 Dose: 325 mg Moxifloxacin HCl (Avelox) 400 mg PO DAILY [facility] Stop: 01/30/17 15:00 Last Admin: 01/30/17 08:28 Dose: 400 mg Pantoprazole Sodium (Protonix Ec Tab) 40 mg PO DAILY [facility] Last Admin: 01/30/17 08:29 Dose: 40 mg Saccharomyces Boulardii (Florastor) 250 mg PO BID [facility] Last Admin: 01/30/17 08:28 Dose: 250 mg - Labs Labs: 01/27/17 08:00 01/27/17 08:00 PT 12.8 Seconds (9.8-13.1) 01/23/17 08:45 INR 1.1 (0.9-1.2) 01/23/17 08:45 APTT 34.8 Seconds (25.6-37.1) 01/23/17 08:45 Assessment and Plan (1) Lung cancer, upper lobe Status: Acute (2) Anemia Status: Acute (3) Cough with hemoptysis Status: Chronic
[2017-01-30] MEDS: Enoxaparin 40 mg Syringe SC SCH (18:00)
[2017-01-31] MEDS: Saccharomyces Boulardi 250 mg Cap PO SCH ×2 (08:28→16:43)
[2017-01-31] MEDS: Enoxaparin 40 mg Syringe SC SCH (08:28)
[2017-01-31] MEDS: Pantoprazole 40 mg EC Tab PO SCH (08:29)
[2017-01-31] MEDS ORDERED: Enoxaparin 40 mg Syringe SC SCH (09:00)
--- NOTE | 2017-01-31 11:08 | CP.PCM.PN ---
Subjective - Date & Time of Evaluation Date of Evaluation: 01/31/17 Time of Evaluation: 11:06 - Subjective Subjective: seen examined at bedside getting palliative radiation therapy at [facility] and likely discharged to [facility] patient has no complaints today feeling well HD stable NAD Objective - Vital Signs/Intake and Output Vital Signs (last 24 hours): Temp Pulse Resp BP Pulse Ox 97.9 F 92 H 20 130/61 99 01/31/17 10:00 01/31/17 10:00 01/31/17 10:00 01/31/17 10:00 01/31/17 10:00 Exam: GEN: WDWN, alert, cooperative HEENT: NCAT, PERRL, EOMI NECK: supple, no JVD, no lymphadenopathy CARDIAC: +S1S2 RRR LUNG: CTAB No WRR ABD: SOFT NT ND BSX4 NO MASSES NO HSM EXT: +pedal pulses, equal strength NEURO: AAOx3 SKIN warm, dry PSYCH normal mood, normal affect - Medications Medications: Current Medications Acetaminophen (Tylenol 325mg Tab) 650 mg PO Q6 PRN PRN Reason: Headache Albuterol Sulfate (Albuterol 0.083% Inhal Jane (2.5 Mg/3 Ml) Ud) 2.5 mg INH RQ4 PRN PRN Reason: Shortness of Breath Last Admin: 01/30/17 21:33 Dose: 2.5 mg Docusate Sodium (Colace) 100 mg PO BID [facility] Last Admin: 01/31/17 08:28 Dose: 100 mg Duloxetine HCl (Cymbalta) 20 mg PO DAILY [facility] Last Admin: 01/31/17 08:29 Dose: 20 mg Duloxetine HCl (Cymbalta) 30 mg PO DAILY [facility] Last Admin: 01/31/17 08:28 Dose: 30 mg Enoxaparin Sodium (Lovenox) 40 mg SC DAILY [facility] PRN Reason: Protocol Last Admin: 01/31/17 08:28 Dose: 40 mg Ferrous Sulfate (Feosol) 325 mg PO BID [facility] Last Admin: 01/31/17 08:29 Dose: 325 mg Pantoprazole Sodium (Protonix Ec Tab) 40 mg PO DAILY [facility] Last Admin: 01/31/17 08:29 Dose: 40 mg Saccharomyces Boulardii (Florastor) 250 mg PO BID [facility] Last Admin: 01/31/17 08:28 Dose: 250 mg - Labs Labs: 06/09/17 08:00 01/27/17 08:00 PT 12.8 Seconds (9.8-13.1) 01/23/17 08:45 INR 1.1 (0.9-1.2) 01/23/17 08:45 APTT 34.8 Seconds (25.6-37.1) 01/23/17 08:45 Assessment and Plan - Assessment and Plan (Free Text) Plan: 86 year old female (PMHx Depression) presented to [facility] ER after she was found on the floor at her home. Patient revealed at the time of her admission that she felt faint and fell but was unable to get up after falling. Because of this she remained on the floor for a few days until she was able to crawl to a phone. She was admitted on 01/14/17 for further evaluation and treatment for Syncope, Left Upper Lobe Mass, Rhabdomyolysis, Left Wrist Fracture, Anemia, and Dehydration. She was then discharged to TCU here at [facility] on 01/19/17 for PT/OT and further management. Right Pulmonary Mass CT of Chest 01/14/17 :Ill-defined right upper lobe - suprahilar mass density which exhibits spiculated borders and abuts the right aspect of the mediastinum as well as along its posterior inferior border the bronchus intermedius which is compressed. Upper lobe this lesion may represent a primary tumor. There also appears to be early postobstructive changes right upper lobe. Bronchoscopy was performed by Dr. Sidhu and this showed a clot obstructing the airway. 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 Patient and son have both been made aware of results. Hematology/Oncology Dr. Emeterio Jean has recommended palliative radiation for the continued Hemoptysis. 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 Radiation Tx through Radiation Oncology at [facility] for [address] Jean. Likely discharge to [facility] based upon PT recommendations after RT. Concern for Pneumonia Patient received course of Avelox for +sputum cultures, poss pneumonia Fall, Subacute Fractures L superior and inferior pubic rami, L pubic symphysis Orthopedics Dr. Cardona concerning findings on CT Hip W/O Contrast Bilateral: subacute fractures of the left superior and inferior pubic rami and left pubic symphysis. Conservative treatment and no surgical intervention at this time. Hx Syncope likely secondary to Hypovolemia, CVA ruled out Pt was anemic on admission Hgb 8.6 CT Head was negative MRI of brain without contrast did not show and acute bleed or infarct Carotid Ultrasound did not show any significant stenosis Doppler US of the LE did not show any DVTs PT/OT in TCU Hx Left Wrist Fracture and Left Hip Pain secondary to Fall Left Wrist X Ray showed a non displaced fracture Repeat Left Wrist X Ray 01/24/17 showed comminuted intra-articular impacted distal radial fracture unchanged in alignment Hip Xray did not show any fracture CT of Head did not fracture nor bleed Hand Surgeon Dr. Hernandez was consulted and he recommended wrist splint and follow up with him as outpatient Patient is not requiring any narcotic pain medication at this time For the Left Hip Pain, CT Bilateral Hip/Pelvis was ordered but as of 01/26/17, CT Scanner is not functioning and awaiting performance. 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 Santana has been consulted for further PT recommendations concerning the continued Left Hip Pain Anemia likely secondary to Chronic disease Anemia work up showed low iron levels Hx of transfusion of 1 unit PRBC for Hgb 7.6 now stable HgB/Hct at 8.7/27.1 Received 3 doses of Venofer Ferrous Sulfate 325 mg PO 2x/day Hx Rhabdomyolysis Treated with IVF CK upon admission was 1157 and came down to 141 Hx Dehydration Received IVF Resolved Hx Depression Cymbalta 30 mg and 20 mg PO 1x/day Prophylaxis measures Lovenox 40 mg SC 1x/day Protonix 40 mg PO 1x/day Colace 100 mg PO 2x/day (added for history of lack of bowel movement on 01/21/17) Albuterol 2.5 mg INH Q4H SOB Tylenol 650 mg PO Q6H PRN Headache
[2017-02-01] MEDS: Enoxaparin 40 mg Syringe SC SCH (08:22)
[2017-02-01] MEDS: Pantoprazole 40 mg EC Tab PO SCH (08:23)
[2017-02-01] MEDS: Saccharomyces Boulardi 250 mg Cap PO SCH ×2 (08:24→16:31)
[2017-02-02] MEDS: Saccharomyces Boulardi 250 mg Cap PO SCH ×2 (08:19→17:05)
[2017-02-02] MEDS: Pantoprazole 40 mg EC Tab PO SCH (08:21)
[2017-02-02] MEDS: Enoxaparin 40 mg Syringe SC SCH (08:21)
--- NOTE | 2017-02-02 15:48 | CP.PCM.PN ---
Subjective - Date & Time of Evaluation Date of Evaluation: 02/02/17 Time of Evaluation: 15:30 - Subjective Subjective: Pt seen and examined. Continue to have hemoptysis but claimed it was improving. Denied chest pain or SOB. Objective - Vital Signs/Intake and Output Vital Signs (last 24 hours): Temp Pulse Resp BP Pulse Ox 98.2 F 97 H 20 134/60 95 02/02/17 15:38 02/02/17 15:38 02/02/17 15:38 02/02/17 15:38 02/02/17 15:38 - Medications Medications: Current Medications Acetaminophen (Tylenol 325mg Tab) 650 mg PO Q6 PRN PRN Reason: Headache Docusate Sodium (Colace) 100 mg PO BID [facility] Last Admin: 02/02/17 08:19 Dose: 100 mg Duloxetine HCl (Cymbalta) 20 mg PO DAILY [facility] Last Admin: 02/02/17 08:20 Dose: 20 mg Duloxetine HCl (Cymbalta) 30 mg PO DAILY [facility] Last Admin: 02/02/17 08:20 Dose: 30 mg Enoxaparin Sodium (Lovenox) 40 mg SC DAILY [facility] PRN Reason: Protocol Last Admin: 02/02/17 08:21 Dose: 40 mg Ferrous Sulfate (Feosol) 325 mg PO BID [facility] Last Admin: 02/02/17 08:19 Dose: 325 mg Pantoprazole Sodium (Protonix Ec Tab) 40 mg PO DAILY [facility] Last Admin: 02/02/17 08:21 Dose: 40 mg Saccharomyces Boulardii (Florastor) 250 mg PO BID [facility] Last Admin: 02/02/17 08:19 Dose: 250 mg - Labs Labs: 01/27/17 08:00 01/27/17 08:00 PT 12.8 Seconds (9.8-13.1) 01/23/17 08:45 INR 1.1 (0.9-1.2) 01/23/17 08:45 APTT 34.8 Seconds (25.6-37.1) 01/23/17 08:45 - Constitutional Appears: No Acute Distress - Head Exam Head Exam: ATRAUMATIC - Eye Exam Eye Exam: absent: Scleral icterus - ENT Exam ENT Exam: Mucous Membranes Moist - Neck Exam Neck Exam: absent: Meningismus - Respiratory Exam Respiratory Exam: absent: Rhonchi, Wheezes, Respiratory Distress - Cardiovascular Exam Cardiovascular Exam: REGULAR RHYTHM, +S1, +S2 - GI/Abdominal Exam GI & Abdominal Exam: Soft. absent: Tenderness - Rectal Exam Rectal Exam: Deferred - Psychiatric Exam Psychiatric exam: Normal Affect - Skin Skin Exam: Dry, Intact Assessment and Plan - Assessment and Plan (Free Text) Assessment: 86 yo female admitted on 01/14/2017 after she was found on the floor at home unable to get up for a few days. She was managed for Rhabdomyolysis, Syncope, Left Wrist Fracture, Anemia and Dehydration. CT scan of the chest showed RUL mass, which on biopsy turned out to be Squamous Cell Carcinoma. Pt was transferred to TCU on 01/19/2017 for continuation of management and PT/OT. 1. Right Upper Lobe Mass Bronchoscopy done by Dr Sidhu showed a clot obstructing the airway. 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 Oncology consult with Dr. Jean was called and he recommended palliative radiation therapy to stop hemoptysis. Pt received 2nd day of radiation therapy at [facility] and will have another one tomorrow before being transferred to [facility] 2. Fall Subacute Fractures L superior and inferior pubic rami, L pubic symphysis Conservative treatment, no surgical intervention at this time Left Wrist Fracture placed on wrist splint continue PT/OT 3. Syncope likely secondary to hypovolemia CT Head and MRI of brain were negative for bleed and infarct Carotid Doppler was negative for obstruction 4. Rhabdomyolysis resolved 5. Dehydration Resolved 6. Depression Cymbalta 30 mg and 20 mg PO daily 7. DVT Prophylaxis Lovenox 40 mg SC daily
[2017-02-02] MEDS ORDERED: Albuterol-Ipratrop 3 mg / 0.5 (3 ml) UD INH PRN (18:19)
--- NOTE | 2017-02-02 19:42 | CP.PCM.PN ---
Subjective - Date & Time of Evaluation Date of Evaluation: 02/01/17 Time of Evaluation: 14:00 - Subjective Subjective: patient with no complaints of any wrist pain Objective - Vital Signs/Intake and Output Vital Signs (last 24 hours): Temp Pulse Resp BP Pulse Ox 98.2 F 97 H 20 134/60 95 02/02/17 15:38 02/02/17 15:38 02/02/17 15:38 02/02/17 15:38 02/02/17 15:38 - Medications Medications: Current Medications Acetaminophen (Tylenol 325mg Tab) 650 mg PO Q6 PRN PRN Reason: Headache Albuterol/Ipratropium (Duoneb 3 Mg/0.5 Mg (3 Ml) Ud) 3 ml INH RQ4 PRN PRN Reason: Shortness of Breath Docusate Sodium (Colace) 100 mg PO BID [facility] Last Admin: 02/02/17 17:06 Dose: 100 mg Duloxetine HCl (Cymbalta) 20 mg PO DAILY [facility] Last Admin: 02/02/17 08:20 Dose: 20 mg Duloxetine HCl (Cymbalta) 30 mg PO DAILY [facility] Last Admin: 02/02/17 08:20 Dose: 30 mg Enoxaparin Sodium (Lovenox) 40 mg SC DAILY [facility] PRN Reason: Protocol Last Admin: 02/02/17 08:21 Dose: 40 mg Ferrous Sulfate (Feosol) 325 mg PO BID [facility] Last Admin: 02/02/17 17:05 Dose: 325 mg Pantoprazole Sodium (Protonix Ec Tab) 40 mg PO DAILY [facility] Last Admin: 02/02/17 08:21 Dose: 40 mg Saccharomyces Boulardii (Florastor) 250 mg PO BID [facility] Last Admin: 02/02/17 17:05 Dose: 250 mg - Labs Labs: 01/27/17 08:00 01/27/17 08:00 PT 12.8 Seconds (9.8-13.1) 01/23/17 08:45 INR 1.1 (0.9-1.2) 01/23/17 08:45 APTT 34.8 Seconds (25.6-37.1) 01/23/17 08:45 - Head Exam Head Exam: ATRAUMATIC, NORMAL INSPECTION - Eye Exam Eye Exam: EOMI, Normal appearance Pupil Exam: NORMAL ACCOMODATION - ENT Exam ENT Exam: Mucous Membranes Moist - Neck Exam Neck Exam: Normal Inspection - Cardiovascular Exam Cardiovascular Exam: REGULAR RHYTHM - GI/Abdominal Exam GI & Abdominal Exam: Normal Bowel Sounds - Rectal Exam Rectal Exam: NORMAL INSPECTION - Exam External exam: NORMAL EXTERNAL EXAM - Extremities Exam Extremities Exam: Full ROM - Back Exam Back Exam: NORMAL INSPECTION - Neurological Exam Neurological Exam: Awake, CN II-XII Intact Neuro motor strength exam: Left Upper Extremity: 3, Right Upper Extremity: 3, Left Lower Extremity: 2/1, Right Lower Extremity: 3 - Psychiatric Exam Psychiatric exam: Normal Affect - Skin Skin Exam: Dry, Normal Color Assessment and Plan (1) Lung cancer, upper lobe Status: Acute (2) Anemia Status: Acute (3) DVT prophylaxis Status: Acute (4) Dehydration Status: Acute (5) Fall Assessment & Plan: left wrist fracture, has a splint non surgical approach to continue with physical, occupational and rec therapy covering Dr. Santana Status: Acute (6) Pulmonary mass Status: Acute (7) Syncope Status: Acute (8) Traumatic rhabdomyolysis Status: Acute
--- NOTE | 2017-02-02 19:48 | CP.PCM.PN ---
Subjective - Date & Time of Evaluation Date of Evaluation: 02/02/17 Time of Evaluation: 16:00 - Subjective Subjective: no acute leg or back, or wrist pain Objective - Vital Signs/Intake and Output Vital Signs (last 24 hours): Temp Pulse Resp BP Pulse Ox 98.2 F 97 H 20 134/60 95 02/02/17 15:38 02/02/17 15:38 02/02/17 15:38 02/02/17 15:38 02/02/17 15:38 - Medications Medications: Current Medications Acetaminophen (Tylenol 325mg Tab) 650 mg PO Q6 PRN PRN Reason: Headache Albuterol/Ipratropium (Duoneb 3 Mg/0.5 Mg (3 Ml) Ud) 3 ml INH RQ4 PRN PRN Reason: Shortness of Breath Docusate Sodium (Colace) 100 mg PO BID [facility] Last Admin: 02/02/17 17:06 Dose: 100 mg Duloxetine HCl (Cymbalta) 20 mg PO DAILY [facility] Last Admin: 02/02/17 08:20 Dose: 20 mg Duloxetine HCl (Cymbalta) 30 mg PO DAILY [facility] Last Admin: 02/02/17 08:20 Dose: 30 mg Enoxaparin Sodium (Lovenox) 40 mg SC DAILY [facility] PRN Reason: Protocol Last Admin: 02/02/17 08:21 Dose: 40 mg Ferrous Sulfate (Feosol) 325 mg PO BID [facility] Last Admin: 02/02/17 17:05 Dose: 325 mg Pantoprazole Sodium (Protonix Ec Tab) 40 mg PO DAILY [facility] Last Admin: 02/02/17 08:21 Dose: 40 mg Saccharomyces Boulardii (Florastor) 250 mg PO BID [facility] Last Admin: 02/02/17 17:05 Dose: 250 mg - Labs Labs: 01/27/17 08:00 01/27/17 08:00 PT 12.8 Seconds (9.8-13.1) 01/23/17 08:45 INR 1.1 (0.9-1.2) 01/23/17 08:45 APTT 34.8 Seconds (25.6-37.1) 01/23/17 08:45 - Head Exam Head Exam: ATRAUMATIC, NORMAL INSPECTION, NORMOCEPHALIC - Eye Exam Pupil Exam: NORMAL ACCOMODATION, PERRL - Neck Exam Neck Exam: Full ROM - Respiratory Exam Respiratory Exam: Clear to Ausculation Bilateral - Cardiovascular Exam Cardiovascular Exam: REGULAR RHYTHM - GI/Abdominal Exam GI & Abdominal Exam: Normal Bowel Sounds - Rectal Exam Rectal Exam: NORMAL INSPECTION - Exam Exam: NORMAL INSPECTION External exam: NORMAL EXTERNAL EXAM - Extremities Exam Extremities Exam: Normal Inspection - Back Exam Back Exam: NORMAL INSPECTION - Neurological Exam Neurological Exam: Alert, Awake Neuro motor strength exam: Left Upper Extremity: 3, Right Upper Extremity: 3, Left Lower Extremity: 3, Right Lower Extremity: 3 - Psychiatric Exam Psychiatric exam: Normal Affect, Normal Mood Assessment and Plan (1) Lung cancer, upper lobe Status: Acute (2) Anemia Status: Acute (3) DVT prophylaxis Status: Acute (4) Dehydration Status: Acute (5) Fall Assessment & Plan: wrist fracture on left hand non surgical treatment, for physical, occupational therapy. covering for Dr Diaz Santana plan for Dc to [facility] for additional subacute rehab Status: Acute (6) Pulmonary mass Status: Acute (7) Syncope Status: Acute (8) Traumatic rhabdomyolysis Status: Acute
[2017-02-03 08:10] VITALS: BP 140/67; PULSE 101; TEMP 98.1; O2SAT 98
[2017-02-03] MEDS: Saccharomyces Boulardi 250 mg Cap PO SCH (08:38)
[2017-02-03] MEDS: Pantoprazole 40 mg EC Tab PO SCH (08:39)
[2017-02-03] MEDS: Enoxaparin 40 mg Syringe SC SCH (08:39)
--- NOTE | 2017-02-03 10:23 | CP.PCM.PN ---
Subjective - Date & Time of Evaluation Date of Evaluation: 02/02/17 Time of Evaluation: 12:00 - Subjective Subjective: No complaints tolerating radiation well Objective - Vital Signs/Intake and Output Vital Signs (last 24 hours): Temp Pulse Resp BP Pulse Ox 98.1 F 101 H 20 140/67 98 02/03/17 08:09 02/03/17 08:09 02/03/17 08:09 02/03/17 08:09 02/03/17 08:09 - Medications Medications: Current Medications Acetaminophen (Tylenol 325mg Tab) 650 mg PO Q6 PRN PRN Reason: Headache Albuterol/Ipratropium (Duoneb 3 Mg/0.5 Mg (3 Ml) Ud) 3 ml INH RQ4 PRN PRN Reason: Shortness of Breath Docusate Sodium (Colace) 100 mg PO BID [facility] Last Admin: 02/03/17 08:38 Dose: 100 mg Duloxetine HCl (Cymbalta) 20 mg PO DAILY [facility] Last Admin: 02/03/17 08:38 Dose: 20 mg Duloxetine HCl (Cymbalta) 30 mg PO DAILY [facility] Last Admin: 02/03/17 08:38 Dose: 30 mg Enoxaparin Sodium (Lovenox) 40 mg SC DAILY [facility] PRN Reason: Protocol Last Admin: 02/03/17 08:39 Dose: 40 mg Ferrous Sulfate (Feosol) 325 mg PO BID [facility] Last Admin: 02/03/17 08:38 Dose: 325 mg Pantoprazole Sodium (Protonix Ec Tab) 40 mg PO DAILY [facility] Last Admin: 02/03/17 08:39 Dose: 40 mg Saccharomyces Boulardii (Florastor) 250 mg PO BID [facility] Last Admin: 02/03/17 08:38 Dose: 250 mg - Labs Labs: 01/27/17 08:00 01/27/17 08:00 PT 12.8 Seconds (9.8-13.1) 01/23/17 08:45 INR 1.1 (0.9-1.2) 01/23/17 08:45 APTT 34.8 Seconds (25.6-37.1) 01/23/17 08:45 - Head Exam Head Exam: ATRAUMATIC - Eye Exam Eye Exam: Normal appearance - ENT Exam ENT Exam: Mucous Membranes Dry - Respiratory Exam Respiratory Exam: NORMAL BREATHING PATTERN - Cardiovascular Exam Cardiovascular Exam: +S1, +S2 - GI/Abdominal Exam GI & Abdominal Exam: Normal Bowel Sounds Assessment and Plan (1) Lung cancer, upper lobe Assessment & Plan: on palliative radiotherapy for hemoptysis from lung cancer deferred systemic therapy Status: Acute (2) Anemia Status: Acute
--- NOTE | 2017-02-03 12:21 | CP.PCM.DIS ---
Provider - Provider Date of Admission: 01/19/17 23:36 Attending physician: Gavino Storm Primary care physician: Nicola Corona MD Consults: Hematology/Oncology Dr. Emeterio Jean Time Spent in preparation of Discharge (in minutes): 40 Hospital Course - Lab Results Lab Results: Most Recent Lab Values WBC 7.0 K/uL (4.8-10.8) 01/27/17 08:00 RBC 3.86 Mil/uL (3.80-5.20) 01/27/17 08:00 Hgb 9.8 g/dL (12.0-16.0) L 01/27/17 08:00 Hct 30.6 % (34.0-47.0) L 01/27/17 08:00 MCV 79.2 fl (81.0-99.0) L 01/27/17 08:00 MCH 25.3 pg (27.0-31.0) L 01/27/17 08:00 MCHC 32.0 g/dL (33.0-37.0) L 01/27/17 08:00 RDW 21.9 % (11.5-14.5) H 01/27/17 08:00 Plt Count 330 K/uL (130-400) 01/27/17 08:00 MPV 7.8 fl (7.2-11.7) 01/27/17 08:00 Neut % (Auto) 66.6 % (50.0-75.0) 01/27/17 08:00 Lymph % (Auto) 18.1 % (20.0-40.0) L 01/27/17 08:00 [place] % (Auto) 11.6 % (0.0-10.0) H 01/27/17 08:00 Eos % (Auto) 2.9 % (0.0-4.0) 01/27/17 08:00 Baso % (Auto) 0.8 % (0.0-2.0) 01/27/17 08:00 Neut # 4.6 K/uL (1.8-7.0) 01/27/17 08:00 Lymph # 1.3 K/uL (1.0-4.3) 01/27/17 08:00 [place] # 0.8 K/uL (0.0-0.8) 01/27/17 08:00 Eos # 0.2 K/uL (0.0-0.7) 01/27/17 08:00 Baso # 0.1 K/uL (0.0-0.2) 01/27/17 08:00 PT 12.8 Seconds (9.8-13.1) 01/23/17 08:45 INR 1.1 (0.9-1.2) 01/23/17 08:45 APTT 34.8 Seconds (25.6-37.1) 01/23/17 08:45 Sodium 129 mmol/l (132-148) L 01/27/17 08:00 Potassium 4.2 MMOL/L (3.6-5.0) 01/27/17 08:00 Chloride 95 mmol/L (98-107) L 01/27/17 08:00 Carbon Dioxide 26 mmol/L (22-30) 01/27/17 08:00 Anion Gap 12 (10-20) 01/27/17 08:00 BUN 13 mg/dl (7-17) 01/27/17 08:00 Creatinine 0.8 mg/dL (0.7-1.2) 01/27/17 08:00 Est GFR ( Amer) > 60 01/27/17 08:00 Est GFR (Non-Af Amer) > 60 01/27/17 08:00 Random Glucose 115 mg/dL (65-105) H 01/27/17 08:00 Calcium 9.3 mg/dL (8.4-10.2) 01/27/17 08:00 Total Bilirubin 0.5 mg/dl (0.2-1.3) 01/21/17 10:00 AST 35 U/L (14-36) 01/21/17 10:00 ALT 37 U/L (9-52) 01/21/17 10:00 Alkaline Phosphatase 83 U/L (38-126) 01/21/17 10:00 Total Protein 6.8 G/DL (6.3-8.2) 01/21/17 10:00 Albumin 3.9 g/dL (3.5-5.0) 01/21/17 10:00 Globulin 2.8 gm/dL (2.2-3.9) 01/21/17 10:00 Albumin/Globulin Ratio 1.4 (1.0-2.1) 01/21/17 10:00 - Hospital Course Hospital Course: Hospitalist Discharge Note (patient was seen and examined at 11:45 AM 02/03/17 in hospital for behavioral medicine [id number]) 86 year old female (PMHx Depression) presented to [facility] ER after she was found on the floor at her home. Patient revealed at the time of her admission that she felt faint and fell but was unable to get up after falling. Because of this she remained on the floor for a few days until she was able to crawl to a phone. She was admitted on 01/14/17 for further evaluation and treatment for Syncope, Left Upper Lobe Mass, Rhabdomyolysis, Left Wrist Fracture, Anemia, and Dehydration. She was then discharged to TCU here at [facility] on 01/19/17 for PT/OT and further management. She is being discharged from TCU to [facility] on . Please see individual Assessment and Plans below for further summary of care while in TCU here at [facility] and for cotinued care at [facility]. ROS: Blurriness of vision while trying to read since admission: she has her son's reading glasses and these seem to help a little Left Hip Pain since fall: worse after PT but states she does not require pain medication Had a normal (Not black/not bloody) bowel movement yesterday 02/02/17 Numbness that comes and goes bilateral toes (chronic) especially with activity Cough with occasional production of blood tinged sputum is still present but less Bitemperal/parietal Headache that comes and goes NO other complaints upon FULL ROS Exam: HEENT: NCA, EOMI, PERRLA, NO pharyngeal erythema/exudate, NO cervical/ supraclavicular/submandibular lymphadenopathy, NO thyromegaly Cardio: Systolic Ejection Murmur heard in all of the auscultatory french Resp: CTA B/L, NO R/R/W GI: BSx4, Soft, NT, ND, NO HSM, NO guarding/rebound tenderness Ext: Bilateral light purple discoloration of the toes of feet (chronic in nature S/P podiatry surgery): capillary refill is 2 to 3 seconds, sensation is intact, NO edema, Bilateral UE Pulses are stronger than Bilateral LE Pulses Neuro: CN II through XII are grossly intact 1. Right Pulmonary Mass CT of Chest 01/14/17 :Ill-defined right upper lobe - suprahilar mass density which exhibits spiculated borders and abuts the right aspect of the mediastinum as well as along its posterior inferior border the bronchus intermedius which is compressed. Upper lobe this lesion may represent a primary tumor. There also appears to be early postobstructive changes right upper lobe. Bronchoscopy was performed by Dr. Sidhu and this showed a clot obstructing the airway. 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 MRI Brain with and without contrast and CT Abdomen/Pelvis with PO and IV contrast : BOTH NEGATIVE FOR METASTATIC DISEASE. Patient and son have both been made aware of results. Hematology/Oncology Dr. Emeterio Jean arranged for palliative radiation therapy x 3 treatments at [facility] 02/01/17, 02/02/17, and 02/03/17 to help reduce the Hemoptysis. Patient has declined systemic therapy 2. Hx Syncope likely secondary to Hypovolemia, CVA ruled out Pt was anemic on admission Hgb 8.6 CT Head was negative MRI of brain without contrast did not show and acute bleed or infarct Carotid Ultrasound did not show any significant stenosis Doppler US of the LE did not show any DVTs Continue PT/OT at [facility] 3. Hx Left Wrist Fracture and Left Hip Pain secondary to Fall Left Wrist X Ray showed a non displaced fracture Repeat Left Wrist X Ray 01/24/17 showed comminuted intra-articular impacted distal radial fracture unchanged in alignment Hip Xray did not show any fracture CT of Head did not fracture nor bleed Hand Surgeon Dr. Hernandez was consulted and he recommended wrist splint (which has been applied and patient is wearing without issue) and patient will have to follow up with him as outpatient once she is discharged from [facility] Patient is not requiring any narcotic pain medication at this time For the Left Hip Pain, CT Hip W/O Contrast Bilateral was done and showed: subacute fractures of the left superior and inferior pubic rami and left pubic symphysis. Orthopedics Dr. Ochoa was consulted and stated via conversation that conservative treatment and no surgical intervention at this time. 4. Anemia likely secondary to Chronic disease Anemia work up showed low iron levels Hx of transfusion of 1 unit PRBC for Hgb 7.6 now stable HgB/Hct at 8.7/27.1 Received 3 doses of Venofer Continue Ferrous Sulfate 325 mg PO 2x/day 5. Hx Rhabdomyolysis Treated with IVF CK upon admission was 1157 and came down to 141 6. Hx Dehydration Received IVF Resolved 7. Hx Depression Continue Cymbalta 30 mg and 20 mg PO 1x/day 8. 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 9. DVT prophylaxis Continue Lovenox 40 mg SC 1x/day Continue Protonix 40 mg PO 1x/day Continue Colace 100 mg PO 2x/day (added for history of lack of bowel movement on 01/21/17) Continue Duoneb INH via Nebulizer Q4H PRN SOB/Wheezing Continue Tylenol 650 mg PO Q6H PRN Headache Fabiano Helton D.O. Discharge Exam - Head Exam Head Exam: ATRAUMATIC Discharge Plan - Follow Up Plan Condition: GOOD Disposition: HOME/ ROUTINE Instructions: Dehydration (DC), Eating During Cancer Treatment (DC), Syncope ( DC), Syncope (GEN), Depression (DC), External Radiation Therapy (DC), Fall Prevention (DC), Side Effects of Radiation Therapy (DC) Additional Instructions: Follow up with [facility] as well for follow up studies for: mild dilatation of esophagus, rule out dysmotility, rule out esophageal stricture. Referrals: Nicola Corona MD [Primary Care Provider] -
--- NOTE | 2017-02-03 13:32 | CP.PCM.PN ---
Subjective - Date & Time of Evaluation Date of Evaluation: 02/03/17 Time of Evaluation: 12:00 - Subjective Subjective: no acute complaints Objective - Vital Signs/Intake and Output Vital Signs (last 24 hours): Temp Pulse Resp BP Pulse Ox 98.1 F 101 H 20 140/67 98 02/03/17 08:09 02/03/17 08:09 02/03/17 08:09 02/03/17 08:09 02/03/17 08:09 - Medications Medications: Current Medications Acetaminophen (Tylenol 325mg Tab) 650 mg PO Q6 PRN PRN Reason: Headache Albuterol/Ipratropium (Duoneb 3 Mg/0.5 Mg (3 Ml) Ud) 3 ml INH RQ4 PRN PRN Reason: Shortness of Breath Docusate Sodium (Colace) 100 mg PO BID [facility] Last Admin: 02/03/17 08:38 Dose: 100 mg Duloxetine HCl (Cymbalta) 20 mg PO DAILY [facility] Last Admin: 02/03/17 08:38 Dose: 20 mg Duloxetine HCl (Cymbalta) 30 mg PO DAILY [facility] Last Admin: 02/03/17 08:38 Dose: 30 mg Enoxaparin Sodium (Lovenox) 40 mg SC DAILY [facility] PRN Reason: Protocol Last Admin: 02/03/17 08:39 Dose: 40 mg Ferrous Sulfate (Feosol) 325 mg PO BID [facility] Last Admin: 02/03/17 08:38 Dose: 325 mg Pantoprazole Sodium (Protonix Ec Tab) 40 mg PO DAILY [facility] Last Admin: 02/03/17 08:39 Dose: 40 mg Saccharomyces Boulardii (Florastor) 250 mg PO BID [facility] Last Admin: 02/03/17 08:38 Dose: 250 mg - Labs Labs: 01/27/17 08:00 01/27/17 08:00 PT 12.8 Seconds (9.8-13.1) 01/23/17 08:45 INR 1.1 (0.9-1.2) 01/23/17 08:45 APTT 34.8 Seconds (25.6-37.1) 01/23/17 08:45 - Head Exam Head Exam: ATRAUMATIC, NORMAL INSPECTION, NORMOCEPHALIC - Eye Exam Eye Exam: EOMI, Normal appearance, PERRL Pupil Exam: NORMAL ACCOMODATION - ENT Exam ENT Exam: Mucous Membranes Moist, Normal Exam - Respiratory Exam Respiratory Exam: NORMAL BREATHING PATTERN - Cardiovascular Exam Cardiovascular Exam: REGULAR RHYTHM - GI/Abdominal Exam GI & Abdominal Exam: Hyperactive Bowel Sounds - Rectal Exam Rectal Exam: NORMAL INSPECTION - Exam Exam: NORMAL INSPECTION - Extremities Exam Extremities Exam: Normal Capillary Refill - Back Exam Back Exam: NORMAL INSPECTION - Neurological Exam Neurological Exam: Alert, Awake Neuro motor strength exam: Left Upper Extremity: 3, Right Upper Extremity: 3, Left Lower Extremity: 2/1, Right Lower Extremity: 3 - Psychiatric Exam Psychiatric exam: Normal Affect, Normal Mood - Skin Skin Exam: Dry, Normal Color Assessment and Plan (1) Lung cancer, upper lobe Status: Acute (2) Anemia Status: Acute (3) DVT prophylaxis Status: Acute (4) Dehydration Status: Acute (5) Fall Assessment & Plan: to continue with therapy program planning for DC Status: Acute (6) Pulmonary mass Status: Acute (7) Syncope Status: Acute (8) Traumatic rhabdomyolysis Status: Acute
== END 2017-02-03 13:30 | DRG 181 ==
LOC: H.TCU 23:36
PROVIDERS: ADMIT Internal Medicine; ATTEND Internal Medicine
PROC: F08Z4FZ Home Management Treatment using Assistive, Adaptive, Supportive or Protective Equipment (ICD-10-PCS; principal; 2017-01-19)
PROC: F07M6FZ Therapeutic Exercise Treatment of Musculoskeletal System - Whole Body using Assistive, Adaptive, Supportive or Protective Equipment (ICD-10-PCS; 2017-01-19)
DX: C34.10 Malignant neoplasm of upper lobe, unspecified bronchus or lung (principal); R04.2 Hemoptysis; E86.1 Hypovolemia; R55 Syncope and collapse; F32.9 Major depressive disorder, single episode, unspecified; D50.9 Iron deficiency anemia, unspecified; M25.552 Pain in left hip; M85.80 Other specified disorders of bone density and structure, unspecified site; Z86.73 Personal history of transient ischemic attack (TIA), and cerebral infarction without residual deficits; Z87.01 Personal history of pneumonia (recurrent); Z87.891 Personal history of nicotine dependence; S62.102D Fracture of unspecified carpal bone, left wrist, subsequent encounter for fracture with routine healing; T79.6XXD Traumatic ischemia of muscle, subsequent encounter; Z91.81 History of falling; X58.XXXD Exposure to other specified factors, subsequent encounter